=== PATIENT | female | born 1990 | race Caucasian/White ===

== ENCOUNTER 2017-06-28 08:33 | Emergency (ER) | payer MEDICAID, OTHER ==
[~2017-06-28] VITALS: Ht 162.6 cm; Wt 95.3 kg
[2017-06-28 09:31] LABS: BILIRUBIN,URINE 1+ (NEGATIVE); CLARITY,URINE CLEAR; COLOR,URINE YELLOW; GLUCOSE, URINE (UA) NEGATIVE (NEGATIVE); KETONES,URINE 4+ (NEGATIVE); LEUKOCYTE ESTERASE ,URINE 2+ (NEGATIVE); NITRITE,URINE NEGATIVE (NEGATIVE); PH,URINE 5 (5-9); PROTEIN,URINE 2+ (NEGATIVE); UROBILINOGEN,URINE NORMAL (NORMAL)
[2017-06-28 09:41] LABS: BACTERIA,URINE MODERATE /HPF
[2017-06-28 09:51] LABS: BASOPHILS % (AUTO) 0 % (0-10); EOSINOPHILS % (AUTO) 0 % (0-10); HEMATOCRIT 40 % (35-52); HEMOGLOBIN 13.7 G/DL (11.5-16.0); LYMPHOCYTES # (AUTO) 1.5 X 10^3 (1.0-4.0); LYMPHOCYTES % (AUTO) 15 % (12-44); MEAN CORPUSCULAR HEMOGLOBIN 30 PG (25-34); MEAN CORPUSCULAR HGB CONC 34 G/DL (32-36); MEAN CORPUSCULAR VOLUME 87 FL (80-99); MEAN PLATELET VOLUME 9.6 FL (7.4-10.4); MONOCYTES # (AUTO) 0.5 X 10^3 (0.0-1.0); MONOCYTES % (AUTO) 5 % (0-12); NEUTROPHILS # (AUTO) 7.8 X 10^3 (1.8-7.8); NEUTROPHILS % (AUTO) 80 % (42-75); PLATELET COUNT 287 10^3/uL (130-400); RED BLOOD COUNT 4.61 10^6/uL (4.35-5.85); RED CELL DISTRIBUTION WIDTH 13.2 % (10.0-14.5); WHITE BLOOD COUNT 9.8 10^3/uL (4.3-11.0)
--- NOTE | 2017-06-28 10:10 | ED GU-Female ---
General Chief Complaint: -Female Stated Complaint: LOWER ABD PAIN Nursing Triage Note: TO ROOM C/O LOW ABD PAIN ONSET THIS AM Nursing Sepsis Screen: No Definite Risk Source: patient Exam Limitations: no limitations History of Present Illness Date Seen by Provider: June 28, 2017 Time Seen by Provider: 10:06 Initial Comments The patient is a 27-year-old white female who presents with chief complaint of low abdominal pain. The patient reports that this began early this morning. She states that this is the worst pain that she ever had. It is both sided but worse on the right. There is no past history of kidney stones. She reports she had urinary tract infections when but not otherwise. Timing/Duration: this morning Severity/Quality: severe Location: suprapubic, right flank, left flank, generalized flank Activities at Onset: none Allergies and Home Medications Allergies Coded Allergies: No Known Drug Allergies (Unverified , 06/28/17) Home Medications No Active Prescriptions or Reported Meds Patient Home Medication List Home Medication List Reviewed: Yes Review of Systems Constitutional: see HPI EENTM: no symptoms reported Respiratory: no symptoms reported Cardiovascular: no symptoms reported Gastrointestinal: no symptoms reported Genitourinary: see HPI Musculoskeletal: no symptoms reported Skin: no symptoms reported Psychiatric/Neurological: No Symptoms Reported Endocrine: No Symptoms Reported Hematologic/Lymphatic: No Symptoms Reported Past Aqlqkgw-Krkilz-Hknouk Hx Patient Social History Alcohol Use: Denies Use Recreational Drug Use: No Smoking Status: Never a Smoker Recent Foreign Travel: No Contact w/Someone Who Travel: No Recent Infectious Disease Expo: No Past Medical History Surgeries: Yes Section Respiratory: No Cardiac: No Neurological: No Genitourinary: No Gastrointestinal: No Musculoskeletal: No Endocrine: No HEENT: No Cancer: No Integumentary: No Physical Exam Vital Signs Vital Signs - First Documented 06/28/17 09:00 Temp 96.7 Pulse 72 Resp 18 B/P (MAP) 143/95 (111) Pulse Ox 99 O2 Delivery Room Air Capillary Refill : Less Than 3 Seconds General Appearance: mild distress HEENT: normal ENT inspection Neck: full range of motion Cardiovascular: normal peripheral pulses, regular rate, rhythm, no edema, no gallop, no JVD, no murmur Respiratory: chest non-tender Gastrointestinal: normal bowel sounds, non tender, no organomegaly, other ( obese) Back: normal inspection, no CVA tenderness, no vertebral tenderness, CVA tenderness (R), CVA tenderness (L) Extremities: normal range of motion, non-tender, normal inspection, no pedal edema, no calf tenderness, normal capillary refill, pelvis stable Neurologic/Psychiatric: lobsterman II-XII nml as tested, no motor/sensory deficits, alert, normal mood/affect, oriented x 3 Skin: normal color, warm/dry, cyanosis, cool, diaphoresis, pallor Lymphatic: no adenopathy Comments Percussion over the right kidney produced rather prompt and impressive Progress/Results/Core Measures Suspected Sepsis Recent Fever Within 48 Hours: No Infection Criteria Present: None New/Unexplained Altered Menta: No Sepsis Screen: No Definite Risk SIRS Temperature:96.7 Pulse: 72 Respiratory Rate: 18 Laboratory Tests 06/28/17 09:45: White Blood Count 9.8 Blood Pressure 143 /95 Mean: 111 Laboratory Tests 06/28/17 09:45: Platelet Count 287 06/28/17 10:34: Creatinine 0.71, Total Bilirubin 0.9 Results/Orders Lab Results Laboratory Tests Test 06/28/17 09:25 06/28/17 09:45 06/28/17 10:34 Range/Units Urine Color YELLOW Urine Clarity CLEAR Urine pH 5 5-9 Urine Specific [place] 1.030 H 1.016-1.022 Urine Protein 2+ H NEGATIVE Urine Glucose (UA) NEGATIVE NEGATIVE Urine Ketones 4+ H NEGATIVE Urine Nitrite NEGATIVE NEGATIVE Urine Bilirubin 1+ H NEGATIVE Urine Urobilinogen NORMAL NORMAL MG/DL Urine Leukocyte Esterase 2+ H NEGATIVE Urine RBC (Auto) 5+ H NEGATIVE Urine RBC 5-10 H /HPF Urine WBC 2-5 /HPF Urine Squamous Epithelial Cells 10-25 H /HPF Urine Crystals NONE /LPF Urine Bacteria MODERATE H /HPF Urine Casts NONE /LPF Urine Mucus SMALL H /LPF Urine Culture Indicated NO White Blood Count 9.8 4.3-11.0 10^3/uL Red Blood Count 4.61 4.35-5.85 10^6/uL Hemoglobin 13.7 11.5-16.0 G/DL Hematocrit 40 35-52 % Mean Corpuscular Volume 87 80-99 FL Mean Corpuscular Hemoglobin 30 25-34 PG Mean Corpuscular Hemoglobin Concent 34 32-36 G/DL Red Cell Distribution Width 13.2 10.0-14.5 % Platelet Count 287 130-400 10^3/uL Mean Platelet Volume 9.6 7.4-10.4 FL Neutrophils (%) (Auto) 80 H 42-75 % Lymphocytes (%) (Auto) 15 12-44 % Monocytes (%) (Auto) 5 0-12 % Eosinophils (%) (Auto) 0 0-10 % Basophils (%) (Auto) 0 0-10 % Neutrophils # (Auto) 7.8 1.8-7.8 X 10^3 Lymphocytes # (Auto) 1.5 1.0-4.0 X 10^3 Monocytes # (Auto) 0.5 0.0-1.0 X 10^3 Eosinophils # (Auto) 0.0 0.0-0.3 10^3/uL Basophils # (Auto) 0.0 0.0-0.1 10^3/uL Sodium Level 138 135-145 MMOL/L Potassium Level 3.7 3.6-5.0 MMOL/L Chloride Level 107 98-107 MMOL/L Carbon Dioxide Level 19 L 21-32 MMOL/L Anion Gap 12 5-14 MMOL/L Blood Urea Nitrogen 12 7-18 MG/DL Creatinine 0.71 0.60-1.30 MG/DL Estimat Glomerular Filtration Rate > 60 BUN/Creatinine Ratio 17 Glucose Level 130 H 70-105 MG/DL Calcium Level 9.1 8.5-10.1 MG/DL Total Bilirubin 0.9 0.1-1.0 MG/DL Aspartate Amino Transf (AST/SGOT) 14 5-34 U/L Alanine Aminotransferase (ALT/SGPT) 11 0-55 U/L Alkaline Phosphatase 54 40-136 U/L Total Protein 7.1 6.4-8.2 GM/DL Albumin 4.0 3.2-4.5 GM/DL My Orders Orders - CAROLINA LIU MD Urine Bedside (06/28/17 09:15) Cbc With Automated Diff (06/28/17 09:15) Ua Culture If Indicated (06/28/17 09:15) Comprehensive Metabolic Panel (06/28/17 10:02) Ct Abd/Pelvis Wo(Kidney Stone) (06/28/17 10:02) Ketorolac Injection (Toradol Injection) (06/28/17 10:15) Ondansetron Injection (Zofran Injectio (06/28/17 10:15) Medications Given in ED Current Medications Medications Dose Ordered Sig/Josue Route Start Time Stop Time Status Last Admin Dose Admin Ketorolac Tromethamine 30 mg ONCE ONCE IVP 06/28/17 10:15 06/28/17 10:16 DC 06/28/17 10:25 30 MG Ondansetron HCl 8 mg ONCE ONCE IVP 06/28/17 10:15 06/28/17 10:16 DC 06/28/17 10:25 8 MG Vital Signs/I&O 06/28/17 09:00 Temp 96.7 Pulse 72 Resp 18 B/P (MAP) 143/95 (111) Pulse Ox 99 O2 Delivery Room Air Capillary Refill : Less Than 3 Seconds Blood Pressure Mean: 111 Point of Care Testing Urine -Bedside: Negative Departure Impression Primary Impression: right ureterolithiasis Disposition: HOME, SELF-CARE Condition: Stable/Unchanged Departure-Patient Inst. Decision time for Depature: 11:28 Add. Discharge Instructions: All discharge instructions reviewed with patient and/or family. Voiced understanding. Strain all urine. Medication as prescribed. Call your provider in a.m. if stone has not passed. He can arrange for you to see a urologist. Scripts Hydrocodone Bit/Acetaminophen (LORTAB 7.5 MG TABLET) 1 Ea Tablet 1 EA PO 4 times a day, #14 TAB Prov: CAROLINA LIU MD 06/28/17 CAROLINA LIU MD June 28, 2017 10:10
[2017-06-28] MEDS ORDERED: KETOROLAC 30 MG/ML VIAL IVP ONE (10:15)
[2017-06-28] MEDS ORDERED: ONDANSETRON 4 MG/2 ML (SDV) Z0FRAN IVP ONE (10:15)
[2017-06-28 10:58] LABS: ALANINE AMINOTRANSFERASE 11 U/L (0-55); ALKALINE PHOSPHATASE 54 U/L (40-136); BILIRUBIN,TOTAL 0.9 MG/DL (0.1-1.0); BUN/CREATININE RATIO 17; CALCIUM 9.1 MG/DL (8.5-10.1); CARBON DIOXIDE 19 MMOL/L (21-32); CHLORIDE 107 MMOL/L (98-107); CREATININE SERUM 0.71 MG/DL (0.60-1.30); GFR ESTIMATED > 60; GLUCOSE 130 MG/DL (70-105); POTASSIUM 3.7 MMOL/L (3.6-5.0); SODIUM 138 MMOL/L (135-145); TOTAL PROTEIN 7.1 GM/DL (6.4-8.2)
--- NOTE | 2017-06-28 10:59 | Diagnostic Imaging Report ---
Clinical indication: Patient with right lower quadrant pain radiating to posteriorly with nausea vomiting and diarrhea x6 hours. Exam: CT exam of the abdomen and pelvis is performed without IV or oral contrast using stone protocol. Coronal and sagittal reformatted images are created. Comparisons: None. Findings: Visualized lung bases: Unremarkable. Liver: Unremarkable as visualized. Gallbladder: Unremarkable. Pancreas: Unremarkable as visualized. Spleen: Unremarkable as visualized. Adrenal glands: Unremarkable. Kidneys/ ureters: There is a 2 mm calcification in the medial lower right pelvis region which is in the expected region of the distal right ureter. This may represent a stone in the distal right ureter versus an adjacent phlebolith. There is note of moderate right hydroureteronephrosis and mild fat stranding adjacent to the right ureter. Otherwise both kidneys are unremarkable. There are no other urinary tract stones seen. There is no perinephric fat stranding. Aorta: Unremarkable as visualized. Intraabdominal/ retroperitoneal contents: Unremarkable. Intestines: Unremarkable as visualized. Appendix: Unremarkable. Bladder: Unremarkable as visualized. Pelvic organs: There is a roughly 2.6 cm cystic structure in right adnexa region. Otherwise visualized portion of the uterus and adnexal areas is unremarkable. There is no significant free fluid in the pelvis. There is no intra-abdominal free air. Extra abdominal/ pelvis regions: Unremarkable. Abdominal wall: Small fat-containing umbilical hernia seen. Bones: Unremarkable. Impression: 1: There is a 2 mm calcification in the medial right low pelvis region which is in the expected region of the distal right ureter. This may represent a stone in the distal right ureter. There is note of moderate right hydroureteronephrosis and mild periureteral fat stranding. 2: There is a roughly 2.6 cm cyst in right adnexa region. Pelvic ultrasound in 6 weeks is suggested to evaluate for evolution and further evaluate. Dictated by: Dictated on workstation # [id number]
[2017-06-28] MEDS ORDERED: HYDR-34 PO (11:30)
[2017-06-28 12:03] VITALS: BP 160/100
== END 2017-06-28 12:03 | disposition home or self-care (01) ==
LOC: EDUNIT# 08:33 → ER 08:36
DX: N20.1 Calculus of ureter (principal); Z87.59 Personal history of other complications of pregnancy, childbirth and the puerperium
CPT/HCPCS: 36415; 74176; 80053; 81000; 84703; 85025; 96374; 96375

== ENCOUNTER 2018-01-07 07:53 | Emergency (ER) | payer MEDICAID ==
[~2018-01-07] VITALS: Ht 162.6 cm; Wt 99.8 kg
[~2018-01-07 07:53] MED LIST: HYDR-34 PO
[2018-01-07 08:18] VITALS: BP 113/64
--- OUTSIDE RECORDS SUMMARY | 2018-01-07 14:36 | XMS REPORT | Referral Summary ---
Author Author [facility] Organization [facility] Address Unknown Phone Unavailable Care Team Providers Care Railroad Car Checker Name Role Phone No PCP, Pt States PCP Encounter [facility] [id number] Date(s): 07/19/15 - 07/19/15 [facility] [address] [place], [place] [address] Discharge Diagnosis: Previous delivery, antepartum Discharge Diagnosis: Family history of congenital cardiac septal defect Discharge Disposition: 01-Home or Self Care Attending Physician: Emerson Haynes MD Admitting Physician: Emerson Haynes MD Vital Signs Most recent to 1 oldest [Reference Range]: Blood Pressure 130/58 mmHg [90-140/60-90 mmHg] (07/19/15 4:15 PM) Problem List Condition Effective Dates Status Health Status Informant (Confirmed) < 2014 Resolved (Confirmed) 05/05/12 - 2013 Resolved (Confirmed) 05/05/08 - 2009 Resolved (Confirmed) 01/21/15 Active Allergies, Adverse Reactions, Alerts No Known Medication Allergies Medications Multivitamins Oral, Daily, 0 Refill(s) Start Date: 07/19/15 Status: Ordered Results No data available for this section Immunizations No data available for this section Procedures No data available for this section Social History Social History Type Response Smoking Status Never smoker Assessment and Plan No data available for this section
--- OUTSIDE RECORDS SUMMARY | 2018-01-07 14:36 | XMS REPORT | CCD ---
Author Author ELY VILLEDA Unknown Address [address] [place] [address] Care Team Providers Care Radiation Control Health Physicist Name Role Phone WESLEY MUÑIZ, ERIKA Carroll Attphys Allergies Allergy Code Allergy Type Reaction Status No Known Allergies 0 Drug allergy Active Active Medications Medication Code Dose Units Frequency Route Modification Start Date/Time Ibuprofen 800MG Oral Tablet 816601 800 MILLIGRAMS EVERY 8 HOURS BY MOUTH 10/24/2015 08:41 Prescription Detail 800 MILLIGRAMS BY MOUTH EVERY 8 HOURS oxyCODONE HCl-acetaminophen 5MG-325MG Oral Tablet [id number] 1 TABLET NEEDED EVERY 6 HR BY MOUTH 2015 08:41 Prescription Detail 1 TABLET BY MOUTH NEEDED EVERY 6 HR PrePlus 27MG-1MG Oral Tablet [id number] 1 EACH DAILY BY MOUTH 10/24/2015 08:41 Prescription Detail 1 EACH BY MOUTH DAILY Docusate Sodium 100MG Oral Capsule [id number] 100 MILLIGRAMS DAILY BY MOUTH 10/24/2015 08:40 Prescription Detail 100 MILLIGRAMS BY MOUTH DAILY while taking percocet Ferrous Sulfate 325MG Oral Tablet [id number] 325 MILLIGRAMS BEFORE TWO MEALS BY MOUTH 10/24/2015 08:40 Prescription Detail 325 MILLIGRAMS BY MOUTH BEFORE TWO MEALS Problems Problem Code Start Date Resolved Date Status Deliveries by [id number] 10/22/2015 Active Procedures Procedure Code Procedure Type Date ELBOW; 3VWS [id number] SNOMED CT 09/06/2016 Results Unknown or Not Available. Encounters Encounter Diagnosis Diagnosis Code Start Date Pain in left arm [id number] 09/06/2016 Function Status Unknown or Not Available. History of Immunizations Immunization Code Date DTP 1990 DTP 1990 OPV 02 1990 OPV 1990 influenza, split (incl. purified surface antigen) 15 01/01/2010 Hep B, adolescent/high risk 42 1990 Hep B, adolescent/high risk infant 42 1990 Hep B, adult 43 04/21/2016 Hib (PRP-OMP) 49 1990 Hib (PRP-OMP) 49 1990 Hep A, adult 52 07/10/1995 HPV, quadrivalent 62 08/28/2010 HPV, quadrivalent 62 10/09/2010 Tdap 115 09/04/2015 Tdap 115 01/07/2016 Novel [id number] 127 01/02/2009 Plan of Treatment Unknown or Not Available. Social History Smoking Status Code Start Date End Date Never smoker [id number] Vital Signs Unknown or Not Available. Function Status Unknown or Not Available. Goals Unknown or Not Available. ASSESSMENTS Unknown or Not Available. Health Concerns Section Unknown or Not Available.
--- OUTSIDE RECORDS SUMMARY | 2018-01-07 14:36 | XMS REPORT ---
Author Author Ana Melara [facility] Address [address] [place], [place] [id number] Care Team Providers Care Graduate Student Instructor Name Role Phone Ana Melara PCP Unavailable Allergies and Adverse Reactions Name Reaction Notes NO KNOWN DRUG ALLERGIES Plan of Treatment Planned Activity Comments Planned Date Planned Time Plan/Goal CULTURE SCREEN ONLY 10/02/2015 12:00 AM Medications Name Start Date Expiration Date SIG Comments NataFort 60 mg iron-1 mg oral tablet 05/24/2009 04/19/2010 take 1 tablet by oral route once daily for 30 days Diflucan 150 mg oral tablet 11/01/2009 11/02/2009 take 1 tablet (150 mg) by oral route once for 1 days Premarin 1.25 mg oral tablet 07/30/2010 08/09/2010 take 1 tablet by oral route daily for 10 days doxycycline hyclate 100 mg oral tablet 08/23/2010 09/02/2010 take 1 tablet ( 100 mg) by oral route every 12 hours for 10 days ibuprofen 800 mg oral tablet 02/17/2011 03/19/2011 take 1 tablet by oral route 3 times a day for 30 days Bactrim DS 800-160 mg oral tablet 03/03/2011 2011 take 1 tablet by oral route every 12 hours for 7 days Macrobid 100 mg oral capsule 03/01/2015 03/08/2015 take 1 capsule (100 mg) by oral route 2 times per day with food for 7 days Discontinued Name Start Date Discontinued Date SIG Comments atenolol 25 mg oral tablet 07/30/2010 take 1/2 tablet by oral route QD Medrol (Antoine) 4 mg oral tablets,dose pack 03/03/2011 05/05/2011 take as directed Problem List Description Status Onset Care, High Risk Active 05/29/2009 Vital Signs Date Time BP-Sys(mm[Hg] BP-Carrie(mm[Hg]) HR(bpm) RR(rpm) Temp WT HT HC BMI BSA BMI Percentile O2 Sat(%) 02/21/2015 11:15:00 AM 130 mmHg 70 mmHg 80 bpm 20 rpm 214 lbs 64 in 36.73 kg/m2 2.09 m2 05/05/2011 10:30:00 AM 126 mmHg 62 mmHg 106 bpm 18 rpm 96.8 F 205 lbs 64 in 35.1878 kg/m 2.0491 m 97 % 03/03/2011 1:22:00 PM 120 mmHg 68 mmHg 66 bpm 18 rpm 97 F 202.375 lbs 64 in 34.74 kg/m2 2.04 m2 02/17/2011 1:44:00 PM 122 mmHg 64 mmHg 68 bpm 18 rpm 98.2 F 198.125 lbs 64 in 34.0077 kg/m 2.0145 m 02/11/2011 9:40:00 AM 103 mmHg 77 mmHg 64 bpm 18 rpm 97.7 F 197.125 lbs 64 in 33.84 kg/m2 2.01 m2 10/09/2010 9:06:00 AM 118 mmHg 68 mmHg 74 bpm 97.4 F 189 lbs 08/23/2010 10:06:00 AM 126 mmHg 70 mmHg 73 bpm 20 rpm 97.9 F 180.5 lbs 64 in 30.98 kg/m2 1.92 m2 0 % 99 % 07/30/2010 8:56:00 AM 96 mmHg 68 mmHg 66 bpm 20 rpm 97.5 F 177.5 lbs 64 in 30.4675 kg/m 1.9067 m 0 % 98 % 01/23/2010 10:43:00 AM 104 mmHg 64 mmHg 48 bpm 97.8 F 150 lbs 01/14/2010 9:15:00 AM 112 mmHg 72 mmHg 49 bpm 98 F 149 lbs 64 in 25.5755 kg/m 1.747 m 81.5 % 06/21/2009 8:54:00 AM 117 mmHg 65 mmHg 73 bpm 20 rpm 97.8 F 160.5 lbs 05/31/2009 9:42:00 AM 134 mmHg 66 mmHg 66 bpm 161 lbs 05/24/2009 4:02:00 PM 135 mmHg 71 mmHg 77 bpm 162 lbs 64 in 27.81 kg/m2 1.82 m2 89.9 % Social History Name Description Comments History of tobacco usage Quit smoking in February - was smoking 1-2cig/day denies alcohol use Tobacco Former smoker History of Procedures Date Ordered Description Order Status 10/09/2010 12:00 AM URINE TEST Reviewed 10/09/2010 12:00 AM IMMUNIZATION ADMIN Reviewed 10/09/2010 12:00 AM HPV VACCINE 4 VALENT IM Reviewed 02/22/2015 12:00 AM CYTOPATH C/V THIN LAYER Returned 02/22/2015 12:00 AM SPECIMEN HANDLING OFFICE-LAB Reviewed 02/22/2015 12:00 AM N.GONORRHOEAE DNA AMP PROB Returned 02/22/2015 12:00 AM CHLAMYDIA CULTURE Returned 02/22/2015 12:00 AM HIV-1ANTIBODY Returned 02/22/2015 12:00 AM URINALYSIS AUTO W/SCOPE Returned 02/22/2015 12:00 AM OBSTETRIC PANEL Returned 02/22/2015 12:00 AM GLUCOSE TOLERANCE TEST (GTT) Returned 05/07/2015 12:00 AM ALPHA-FETOPROTEIN SERUM Returned 05/07/2015 12:00 AM CHORIONIC GONADOTROPIN TEST Returned 05/07/2015 12:00 AM CHORIONIC GONADOTROPIN ASSAY Returned 06/12/2015 12:00 AM OB US >/=14 WKS SNGL FETUS Returned 08/07/2015 12:00 AM RH IG FULL-DOSE IM Returned 08/07/2015 12:00 AM Type and screen Returned 08/07/2015 12:00 AM GLUCOSE TOLERANCE TEST (GTT) Returned 08/07/2015 12:00 AM COMPLETE CBC W/AUTO DIFF WBC Returned 03/03/2011 12:00 AM X-RAY EXAM KNEE 4 OR MORE Returned 09/04/2015 12:00 AM TDAP VACCINE 7 YRS/> IM Reviewed 09/04/2015 12:00 AM IMMUNIZATION ADMIN Reviewed 05/24/2009 12:00 AM OBSTETRIC PANEL Reviewed 05/24/2009 12:00 AM HIV-1ANTIBODY Reviewed 05/24/2009 12:00 AM URINALYSIS NONAUTO W/SCOPE Reviewed 05/24/2009 12:00 AM OB US < 14 WKS SINGLE FETUS Reviewed 10/08/2009 12:00 AM GLUCOSE TEST Reviewed 10/08/2009 12:00 AM Rhogam Reviewed 10/08/2009 12:00 AM Type and screen Reviewed 10/08/2009 12:00 AM COMPLETE CBC W/AUTO DIFF WBC Reviewed 10/22/2009 12:00 AM COMPLETE CBC W/AUTO DIFF WBC Reviewed 11/22/2009 12:00 AM CULTURE OTHR SPECIMN AEROBIC Reviewed 01/23/2010 12:00 AM INSERTION IMPLANON, IMPLANTABLE CONTRACEPTIVE CAPSULES Reviewed 01/23/2010 12:00 AM Etonogestrel (contraceptive) implant system, (Implanon) Reviewed 08/23/2010 12:00 AM CYTOPATH TBS C/V MANUAL Reviewed 08/23/2010 12:00 AM CHLAMYDIA CULTURE Reviewed 08/23/2010 12:00 AM N.GONORRHOEAE DNA AMP PROB Reviewed 08/23/2010 12:00 AM URINE TEST Reviewed 08/28/2010 12:00 AM IMMUNIZATION ADMIN Reviewed 08/28/2010 12:00 AM HPV VACCINE 4 VALENT IM Reviewed Results Summary Data and Description Results 05/31/2009 10:41 AM RUBELLA 34.0 IU/mLCOLOR YELLOW APPEARANCE HAZY SPEC GRAV 1.025 pH 7.0 PROTEIN TRACE GLUCOSE NEGATIVE KETONE 15 BILIRUBIN NEGATIVE BLOOD NEGATIVE NITRITE NEGATIVE LEUK SCREEN NEGATIVE CASTS/LPF NEGATIVE CRYSTALS TRACE AMORPH MUCOUS THRDS FEW BACTERIA NEGATIVE EPITH CELLS FEW SQUAMOUS TRICHOMONAS NEGATIVE YEAST NEGATIVE WBC 6.3 RBC 4.57 HGB 13.90 g/dLHCT 40.30 % MCV 88.0 fLMCH 30.40 pgMCHC 34.50 g/dLMPV 9.20 fLPLT 258 %NEUT 65.10 %%LYMP 28.30 %#NEUT 4.10 #LYMP 1.80 10/22/2009 3:48 PM WBC 12.9 RBC 4.02 HGB 12.60 g/dLHCT 37.40 %MCV 93.0 fLMCH 31.30 pgMCHC 33.70 g/dLRDW CV 14.10 %MPV 9.50 fLPLT 263 %NEUT 69.20 %%LYMP 22.30 %%MONO 7.60 %%EOS 0.70 %%BASO 0.20 %#NEUT 8.91 #LYMP 2.88 #MONO 0.98 #EOS 0.09 #BASO 0.03 11/30/2009 8:21 PM COLOR YELLOW APPEARANCE CLEAR SPEC GRAV 1.010 pH 6.5 PROTEIN NEGATIVE GLUCOSE NEGATIVE KETONE 15 BILIRUBIN NEGATIVE BLOOD NEGATIVE NITRITE NEGATIVE LEUK SCREEN SMALL CASTS/LPF NEGATIVE CRYSTALS NEGATIVE MUCOUS THRDS NEGATIVE BACTERIA 2++ EPITH CELLS 3+++ SQUAMOUS TRICHOMONAS NEGATIVE YEAST NEGATIVE 12/18/2009 11:58 PM COLOR YELLOW APPEARANCE CLEAR SPEC GRAV 1.015 pH 6.5 PROTEIN NEGATIVE GLUCOSE NEGATIVE KETONE NEGATIVE BILIRUBIN NEGATIVE BLOOD NEGATIVE NITRITE NEGATIVE LEUK SCREEN LARGE CASTS/LPF NEGATIVE CRYSTALS NEGATIVE MUCOUS THRDS NEGATIVE BACTERIA 2++ EPITH CELLS 2++ SQUAMOUS TRICHOMONAS NEGATIVE YEAST NEGATIVE 12/24/2009 5:30 PM LDH 163.0 IU/LURIC ACID 3.7 mg/dLGLUCOSE 66.0 mg/dLSODIUM 137.0 mmol/LPOTASSIUM 3.10 mmol/LCHLORIDE 105.0 mmol/LCO2 21.0 mmol/LBUN 3.0 mg/ dLCREATININE 0.50 mg/dLSGOT/AST 20.0 IU/LSGPT/ALT 18.0 IU/LALK PHOS 152.0 IU/ LTOTAL PROTEIN 6.20 g/dLALBUMIN 3.40 g/dLTOTAL BILI 0.60 mg/dLCALCIUM 9.10 mg/ dLeGFR >60 mL/min/1.73 m2WBC 16.9 RBC 4.18 HGB 13.30 g/dLHCT 39.70 %MCV 95.0 fLMCH 31.80 pgMCHC 33.50 g/dLRDW CV 14.0 %MPV 10.10 fLPLT 268 %NEUT 75.70 %% LYMP 17.50 %%MONO 6.20 %%EOS 0.40 %%BASO 0.20 %#NEUT 12.82 #LYMP 2.97 #MONO 1.05 #EOS 0.06 #BASO 0.03 12/24/2009 8:50 PM PROTEIN UR 14.0 mg/dL 02/21/2015 12:21 PM Pap Smear Collected 02/26/2015 2:00 PM WBC 9.8 RBC 4.60 HGB 13.60 g/dLHCT 41.40 %MCV 90.0 fLMCH 29.60 pgMCHC 32.90 g/dLRDW CV 13.80 %MPV 9.70 fLPLT 271 %NEUT 59.80 %%LYMP 33.0 %%MONO 6.40 %%EOS 0.60 %%BASO 0.20 %#NEUT 5.83 #LYMP 3.22 #MONO 0.62 #EOS 0.06 # BASO 0.02 HIV AG/AB COMBO 0.14 RPR Non Reactive Rubella Antibodies, IgG 2.88 Index 02/26/2015 2:08 PM COLOR YELLOW APPEARANCE CLEAR SPEC GRAV <=1.005 pH 6.0 PROTEIN NEGATIVE GLUCOSE NEGATIVE mg/dLKETONE NEGATIVE BILIRUBIN NEGATIVE BLOOD NEGATIVE NITRITE NEGATIVE LEUK SCREEN TRACE CASTS/LPF NEGATIVE /LPFCRYSTALS NEGATIVE MUCOUS THRDS NEGATIVE BACTERIA NEGATIVE EPITH CELLS 3+++ SQUAMOUS / HPFTRICHOMONAS NEGATIVE YEAST NEGATIVE 05/07/2015 2:18 PM AFP Value 0.0240 ug/mLAFP MoM 1.02 hCG Value 20873.0 mIU/ mLhCG MoM 1.77 uE3 Value 0.70 ng/mLuE3 MoM 1.16 CARRIE Value 207.520 pg/mLDIA MoM 1.25 OSBR [place] 1 [place] [address] DSR (Second Trimester) 1IN 4435 DSR (By Age) 1 IN 1003 T18 Risk Not increased T18 (By Age) 1:3907 08/07/2015 3:15 PM WBC 11.5 RBC 3.75 HGB 11.70 g/dLHCT 35.50 %MCV 95.0 fLMCH 31.20 pgMCHC 33.0 g/dLRDW CV 14.10 %MPV 9.70 fLPLT 273 %NEUT 73.0 %%LYMP 20.10 % %MONO 5.70 %%EOS 0.80 %%BASO 0.10 %#NEUT 8.40 #LYMP 2.31 #MONO 0.65 #EOS 0.09 # BASO 0.01 History Of Immunizations Name Date Admin Mfg Name Mfg Code Trade Name Lot# Route Inj Vis Given Vis Pub CVX HPV 08/28/2010 Merck [employer] Co., Inc. MSD GARDASIL [id number] Intramuscular Left Deltoid 08/28/2010 03/13/2006 999 HPV 10/09/2010 [employer] Co[employer] Inc[employer] MSD GARDASIL [id number] Intramuscular Left Deltoid 10/09/2010 06/12/2010 62 Tdap 09/04/2015 GlaxoSmLivemapine SKB BOOSTRIX [id number] Intramuscular Right Deltoid 09/04/2015 04/04/2014 115 History of Past Illness Name Date of Onset Comments Atrial Septal Defect, Ostium Secundum Type Care, High Risk 05/29/2009 May 24 2009 4:29PM Care, High Risk May 24 2009 4:13PM May 31 2009 9:54AM Care, High Risk May 31 2009 10:10AM Jun 21 2009 9:01AM Jul 19 2009 2:45PM Aug 16 2009 4:16PM , First Normal Oct 08 2009 9:14AM , High Risk Oct 22 2009 3:13PM Group B Strep Screening, Nov 22 2009 5:43PM , High Risk Nov 22 2009 5:43PM Postoperative Examination Following Surgery Jan 14 2010 9:15AM IMPLANON Insertion Jan 23 2010 10:44AM General Medical Exam, Child Jul 30 2010 8:58AM Contraceptive Management Jul 30 2010 8:58AM Routine gynecological examination Aug 23 2010 10:03AM Contraceptive Counseling Aug 23 2010 10:03AM Vaginal Discharge Aug 23 2010 10:03AM Irregular Menses Aug 23 2010 10:03AM Gardsil (HPV) Aug 28 2010 8:54AM Irregular Menses Oct 09 2010 9:07AM Family Planning Oct 09 2010 9:07AM Contraceptive Management Feb 11 2011 9:43AM Local Infection Feb 11 2011 9:43AM Well Child Examination Feb 17 2011 1:46PM Right knee pain Feb 17 2011 1:46PM Right knee pain Mar 03 2011 1:24PM Abscess Mar 03 2011 1:24PM Right knee pain May 05 2011 10:32AM General Medical Exam, Adult Feb 17 2011 1:46PM test confirmed positive Feb 21 2015 11:37AM Obesity Feb 21 2015 11:37AM Normal in multigravida in second trimester May 07 2015 2:01PM History of atrial septal defect repair Jun 20 2015 8:50AM Normal in multigravida in second trimester Aug 07 2015 2:00PM Need for Tdap vaccine Sep 04 2015 1:38PM Group B Strep Screening, Oct 02 2015 3:43PM Normal in multigravida in third trimester Oct 02 2015 3:43PM Payers Insurance Name Company Name Plan Name Plan Number Policy Number Policy Group Number Start Date [facility] - R[facility] - [facility]HC Comm [id number] N/A [place] [employer] [place] Program [place] Prog [id number] N/A zzzTest Medicare A Test Medicare A void N/A History of Encounters Visit Date Visit Type Provider 10/02/[address] Ana Melara MD 09/18/[address] Ana Melara MD 09/04/[address] Ana Melara MD 08/07/[address] Ana Melara MD 06/05/[address] Ana Melara MD 05/07/[address] Ana Melara MD 04/05/[address] Ana Melara MD 03/08/[address] Ana Melara MD 02/21/2015 Office visit Marni Dorado PHTHALIC ACID PURIFIER 05/05/2011 Office visit Dalia Walker PHTHALIC ACID PURIFIER 03/03/2011 Office visit Dalia Walker PHTHALIC ACID PURIFIER 02/17/2011 Office visit Dalia Walker PHTHALIC ACID PURIFIER 02/11/2011 Office visit Dalia Walker PHTHALIC ACID PURIFIER 10/09/2010 Nurse visit Dalia Walker PHTHALIC ACID PURIFIER 08/28/2010 Nurse visit Dalia Walker PHTHALIC ACID PURIFIER 08/23/2010 Office visit Dalia Walker PHTHALIC ACID PURIFIER 07/30/2010 Office visit Dalia Walker PHTHALIC ACID PURIFIER 01/23/2010 Office visit Marga Fung MD 01/14/2010 Surgery Marga Fung MD 12/25/2009 [facility] Marga Fung MD 12/24/2009 Office visit Marga Fung MD 12/24/2009 [facility] Marga Fung MD 12/20/2009 Office visit Marga Fung MD 12/13/2009 Office visit Marga Fung MD 12/06/2009 Office visit Marga Fung MD 11/29/2009 Office visit Marga Fung MD 11/22/2009 Office visit Marga Fung MD 11/17/2009 [facility] Marga Fung MD 11/15/2009 Office visit Marga Fung MD 11/01/2009 Office visit Marga Fung MD 10/22/2009 Office visit Marga Fung MD 10/08/2009 Office visit Marga Fung MD 09/17/2009 Office visit Marga Fung MD 08/16/2009 Office visit Marga Fung MD 07/19/2009 Office visit Marga Fung MD 06/21/2009 Office visit Marga Fung MD 05/31/2009 Office visit Marga Fung MD 05/24/2009 Office visit Marga Fung MD
--- OUTSIDE RECORDS SUMMARY | 2018-01-07 14:36 | XMS REPORT | CCD ---
Author Author COLT KEARNS Organization Unknown Address [address] [place] [address] Care Team Providers Care Senior Manufacturing Supervisor Name Role Phone LINDEN MAHONEY MD Attphys VANESSA Stubbs Allergies Allergy Code Allergy Type Reaction Status No Known Allergies 0 Drug allergy Active Active Medications Problems Problem Code Start Date Resolved Date Status Deliveries by [id number] 10/22/2015 Active Procedures Procedure Code Procedure Type Date Extraction of Products of Conception, Low Cervical, Open Approach [id number] ICD-10 PCS 10/22/2015 Excision of Bilateral Fallopian Tubes, Open Approach [id number] ICD- 10 PCS 10/22/2015 Repair Abdomen Skin, External Approach [id number] ICD-10 PCS 10/24/[address] 10/23/[id number] 10/23/[id number] 10/23/2015 PATHOLOGY ORDER [id number] SNOMED CT 10/22/2015 TYPE AND SCREEN 29687839 SNOMED CT 10/22/[address] 10/22/2015 INCENTIVE SPIROMETRY EA [address] 01/2016 Results HEMOGRAM - Collect Date/Time: 10/23/2015 06:00 Test Name Code Test Result Test Units Test Ref Range WBC 23020-3 14.0 TH/CMM L=4.5 H=10.8 RBC 789-8 3.41 ML/CMM L=4.20 H=5.40 HGB 718-7 10.1 G/DL L=12.0 H=16.0 HCT 4544-3 32.3 % L=37.0 H=47.0 MCV 57062-3 95 FL L=81 H=99 MCH 44573-5 29.6 PG L=27.0 H=33.0 MCHC 60716-5 31.3 G/DL L=31.0 H=36[place]0 [place] [address]-3 49 FL L=36 H=50 [place]DW [place] [address]-7 14.3 % L=0.0 H=14.8 MPV 00917-3 9.7 FL L=9.3 H=12.5 PLT 777-3 271 TH/CMM L=130 H=440 NRBC# 25738-6 0.00 TH/CMM L=0.00 H=0.00 NRBC% 08678-7 0.0 /100WBC L=0.0 H=2.0 HEMOGRAM - Collect Date/Time: 10/22/2015 10:45 Test Name Code Test Result Test Units Test Ref Range WBC 75546-8 10.7 TH/CMM L=4.5 H=10.8 RBC 789-8 3.83 ML/CMM L=4.20 H=5.40 HGB 718-7 11.4 G/DL L=12.0 H=16.0 HCT 4544-3 35.9 % L=37.0 H=47.0 MCV 14993-0 94 FL L=81 H=99 MCH 47448-4 29.8 PG L=27.0 H=33.0 MCHC 17727-1 31.8 G/DL L=31.0 H=36[place] [address]-4 48 FL L=36 H=50 [place] [address]-8 14.0 % L=0.0 H=14.8 MPV 30481-3 9.5 FL L=9.3 H=12.5 PLT 777-3 321 TH/CMM L=130 H=440 NRBC# 18277-5 0.00 TH/CMM L=0.00 H=0.00 NRBC% 64202-1 0.0 /100WBC L=0.0 H=2.0 SCREEN - Collect Date/Time: 10/23/2015 06:00 Test Name Code Test Result Test Units Test Ref Range Bleed Screen 49234-9 Negative N/A RHIG - Collect Date/Time: 10/23/2015 06:00 Test Name Code Test Result Test Units Test Ref Range Volume 77544-7 300 Quantity 79177-4 1 Lot Number [id number] Product Identification [id number] Rh Immune Globulin N/A TYPE AND SCREEN - Collect Date/Time: 10/22/2015 10:45 Test Name Code Test Result Test Units Test Ref Range ABO/Rh Type 895-3 A Negative N/A Antibody Screen-Gel 895-3 Negative N/A Function Status Unknown or Not Available. History of Immunizations Unknown or Not Available. Plan of Treatment Unknown or Not Available. Social History Smoking Status Code Start Date End Date Never smoker [id number] Vital Signs Vital Sign Value Unit Date/Time Recent/Initial? BP Systolic 105 mm[Hg] 10/22/2015 14:30 Initial VS BP Diastolic 52 mm[Hg] 10/22/2015 14:30 Initial VS Respiratory Rate 16 /min 10/22/2015 14:30 Initial VS Heart Rate 65 /min 10/22/2015 14:30 Initial VS O2 % BldC Oximetry 100 % 10/22/2015 14:30 Initial VS Body Temperature 97.3 [degF] 10/22/2015 14:30 Initial VS Weight Measured 178 [lb_av] 10/22/2015 16:31 Initial VS Height 64 [in_i] 10/22/2015 16:31 Initial VS BMI (Body Mass Index) 30.55 kg/m2 10/22/2015 16:31 Initial VS BSA (Body Surface Area) 1.91 m2 10/22/2015 16:31 Initial VS BP Systolic 124 mm[Hg] 10/24/2015 09:40 Most Recent VS BP Diastolic 70 mm[Hg] 10/24/2015 09:40 Most Recent VS Respiratory Rate 18 /min 10/24/2015 09:40 Most Recent VS Heart Rate 88 /min 10/24/2015 09:40 Most Recent VS O2 % BldC Oximetry 98 % 10/24/2015 09:40 Most Recent VS Body Temperature 98.1 [degF] 10/24/2015 09:40 Most Recent VS Function Status Unknown or Not Available. Goals Unknown or Not Available. ASSESSMENTS Unknown or Not Available. Health Concerns Section Unknown or Not Available.
--- OUTSIDE RECORDS SUMMARY | 2018-01-07 14:37 | XMS REPORT ---
Author Author Ana Melara [facility] Address [address] [place], [place] [id number] Care Team Providers Care Adjunct Art History Instructor Name Role Phone Ana Melara PCP Unavailable Allergies and Adverse Reactions Name Reaction Notes NO KNOWN DRUG ALLERGIES Plan of Treatment Not available. Medications Active Name Start Date Estimated Completion Date SIG Comments Macrobid 100 mg oral capsule 03/01/2015 03/08/2015 take 1 capsule (100 mg) by oral route 2 times per day with food for 7 days Name Start Date Expiration Date SIG Comments [...] route every 12 hours for 7 days Discontinued Name Start Date [...] 12:00 AM GLUCOSE TOLERANCE TEST (GTT) Returned 03/03/2011 12:00 AM X-RAY EXAM KNEE 4 OR MORE Returned 05/24/2009 12:00 AM OBSTETRIC PANEL Reviewed 05/24/2009 [...] 3+++ SQUAMOUS / HPFTRICHOMONAS NEGATIVE YEAST NEGATIVE History Of Immunizations Name Date Admin Mfg Name Mfg Code Trade Name Lot# Route Inj Vis Given Vis Pub CVX HPV 08/28/2010 [employer]ck [employer] Co., [employer]. MSD GARDASIL [id number] Intramuscular Left Deltoid 08/28/2010 03/13/2006 999 HPV 10/09/2010 [employer]ck [employer] Co., Inc[employer] MSD GARDASIL [id number] Intramuscular Left Deltoid 10/09/2010 06/12/2010 62 History of Past Illness Name Date of [...] 2015 11:37AM Obesity Feb 21 2015 11:37AM Payers Insurance Name Company Name Plan Name Plan Number Policy Number Policy Group Number Start Date [place] [employer] Program [place] [employer] [place] Prog [id number] N/A [facility] void N/A History of Encounters Visit Date Visit Type Provider 03/08/[address] Ana Melara MD 02/21/2015 Office visit Marni Dorado GLOBAL SAFETY OFFICER 05/05/2011 Office visit Dalia Mariano GLOBAL SAFETY OFFICER 03/03/2011 Office visit Dalia Mariano GLOBAL SAFETY OFFICER 02/17/2011 Office visit Dalia Mariano GLOBAL SAFETY OFFICER 02/11/2011 Office visit Dalia Mariano GLOBAL SAFETY OFFICER 10/09/2010 Nurse visit Dalia Mariano GLOBAL SAFETY OFFICER 08/28/2010 Nurse visit Dalia Mariano GLOBAL SAFETY OFFICER 08/23/2010 Office visit Dalia Mariano GLOBAL SAFETY OFFICER 07/30/2010 Office visit Dalia Mariano GLOBAL SAFETY OFFICER 01/23/2010 Office visit Marga Fung MD 01/14/2010 Surgery Marga Fung MD 12/25/2009 Hospital Marga Fung MD 12/24/2009 Office visit Marga Fung MD 12/24/2009 [facility] Marga Fung MD 12/20/2009 Office visit Marga Fung MD 12/13/2009 Office visit Marga Fung MD 12/06/2009 Office visit Marga Fung MD 11/29/2009 Office visit Marga Fung MD 11/22/2009 Office visit Marga Fnug MD 11/17/2009 [facility] Marga Fung MD 11/15/2009 Office visit [...]
--- OUTSIDE RECORDS SUMMARY | 2018-01-07 14:37 | XMS REPORT ---
Author Author Ana Melara [facility] Address [address] [place], [place] [address] Care Team Providers Care Drug Regulatory Affairs Specialist Name Role Phone Ana Melara PCP Unavailable Allergies and Adverse Reactions Name Reaction Notes NO KNOWN DRUG ALLERGIES Plan of Treatment Not available. Medications Name Start Date Expiration Date SIG [...] Reviewed 09/04/2015 12:00 AM IMMUNIZATION ADMIN Reviewed 10/02/2015 12:00 AM CULTURE SCREEN ONLY Returned 05/24/2009 12:00 AM OBSTETRIC PANEL Reviewed [...] Value 0.0240 ug/mLAFP MoM 1.02 hCG Value 70165.0 mIU/ mLhCG MoM 1.77 uE3 Value 0.70 ng/mLuE3 MoM 1.16 CARRIE Value 207.520 pg/mLDIA MoM 1.25 OSBR [place] 1 [place] [address] DSR (Second Trimester) 1IN 4435 DSR (By [...] 10/09/2010 [employer]ck [employer] Co., Inc[employer] MSD GARDASIL [id number] Intramuscular Left Deltoid 10/09/2010 06/12/2010 62 Tdap 09/04/2015 GlaxoSmDogiKline SKB BOOSTRIX [id number] Intramuscular Right Deltoid 09/04/2015 [...] Policy Number Policy Group Number Start Date [facility] [id number] N/A [place] [employer] Program [place] [employer] Prog [id number] N/A zzzTest Medicare A Test Medicare A void N/A History of Encounters Visit Date Visit Type Provider 10/09/[address] Ana Melara MD 10/02/[address] Ana Melara MD 09/18/[address] Ana Melara MD 09/04/[address] Ana Melara MD 08/07/[address] Ana Melara MD 06/05/[address] Ana Melara MD 05/07/[address] Ana Melara MD 04/05/[address] Ana Melara MD 03/08/[address] Ana Melara MD 02/21/2015 Office visit Marni GermainMillicent Dorado FAMILY LAWYER 05/05/2011 Office visit Dalia Walker FAMILY LAWYER 03/03/2011 Office visit Dalia Walker FAMILY LAWYER 02/17/2011 Office visit Dalia Walker FAMILY LAWYER 02/11/2011 Office visit Dalia Walker FAMILY LAWYER 10/09/2010 Nurse visit Dalia Walker FAMILY LAWYER 08/28/2010 Nurse visit Dalia Walker FAMILY LAWYER 08/23/2010 Office visit Dalia Walker FAMILY LAWYER 07/30/2010 Office visit Dalia García FAMILY LAWYER 01/23/2010 Office visit Marga Fung MD 01/14/2010 Surgery Marga Fung MD 12/25/2009 [facility] Marga Fung MD 12/24/2009 Office visit Marga Fung MD 12/24/2009 [facility] Marga Fung MD 12/20/2009 Office visit Marga Fung MD 12/13/2009 Office visit Marga Fung MD 12/06/2009 Office visit Marga Fung MD 11/29/2009 Office visit Marga Fung MD 11/22/2009 Office visit Marga Fung MD 11/17/2009 [facility] Marga Fung MD 11/15/2009 Office visit Marga [...]
--- OUTSIDE RECORDS SUMMARY | 2018-01-07 14:38 | XMS REPORT ---
Author Author Ana Melara [facility] Address [address] [place], [place] [id number] Care Team Providers Care Chain Hooker Name Role Phone Ana Melara PCP Unavailable [...] Value 0.0240 ug/mLAFP MoM 1.02 hCG Value 41408.0 mIU/ mLhCG MoM 1.77 uE3 Value 0.70 ng/mLuE3 MoM 1.16 CARRIE Value 207.520 pg/mLDIA MoM 1.25 OSBR [place] 1 [place] [address] DSR (Second Trimester) 1IN 4435 DSR (By [...] 10/09/2010 Merck & Co., Inc. MSD GARDASIL [id number] Intramuscular Left Deltoid 10/09/2010 06/12/2010 62 Tdap 09/04/2015 [employer]ax[employer] SKB BOOSTRIX [id number] Intramuscular Right Deltoid 09/04/2015 [...] for Tdap vaccine Sep 04 2015 1:38PM Payers Insurance Name Company Name Plan Name Plan Number Policy Number Policy Group Number Start Date [facility] - [facility] - [facility] of [facility] Comm [id number] N/A [place] [facility] Program [place] Medical Assistance Prog [id number] N/A zzzTest Medicare A Test Medicare A void N/A History of Encounters Visit Date Visit Type Provider 09/18/[address] Ana Melara MD 09/04/[address] Ana Melara MD 08/07/[address] Ana Melara MD 06/05/[address] Ana Melara MD 05/07/[address] Ana Melara MD 04/05/[address] Ana Melara MD 03/08/[address] Ana Melara MD 02/21/2015 Office visit Marni MarcellusMillicent Dorado ELECTRICIAN HELPER 05/05/2011 Office visit Dalia Mariano ELECTRICIAN HELPER 03/03/2011 Office visit Dalia Mariano ELECTRICIAN HELPER 02/17/2011 Office visit Dalia Mariano ELECTRICIAN HELPER 02/11/2011 Office visit Dalia Mariano ELECTRICIAN HELPER 10/09/2010 Nurse visit Dalia Mariano ELECTRICIAN HELPER 08/28/2010 Nurse visit Dalia Mariano ELECTRICIAN HELPER 08/23/2010 Office visit Dalia Mariano ELECTRICIAN HELPER 07/30/2010 Office visit Dalia Mariano ELECTRICIAN HELPER 01/23/2010 Office visit Marga Fung MD 01/14/2010 Surgery Marga Fung MD 12/25/2009 Hospital Marga Fung MD 12/24/2009 Office visit Marga Fung MD 12/24/2009 [facility] Marga Fung MD 12/20/2009 Office visit Marga Fung MD 12/13/2009 Office visit Marga Fung MD 12/06/2009 Office visit Marga Fung MD 11/29/2009 Office visit Marga Fung MD 11/22/2009 Office visit Marga Fung MD 11/17/2009 [facility] Marga Fung MD 11/15/2009 Office [...]
--- OUTSIDE RECORDS SUMMARY | 2018-01-07 14:38 | XMS REPORT ---
Author Author Ana Melara [facility] Address [address] [place], [place] [address] Care Team Providers Care Buffet Waiter/Waitress Name Role Phone Ana Melara PCP Unavailable Allergies and Adverse Reactions Name Reaction Notes NO KNOWN DRUG ALLERGIES Plan of Treatment Planned Activity Comments Planned Date Planned Time Plan/Goal OB US >/=14 WKS SNGL FETUS 06/12/2015 12:00 AM Medications Name Start Date Expiration [...] 05/07/2015 12:00 AM CHORIONIC GONADOTROPIN ASSAY Returned 03/03/2011 12:00 AM X-RAY EXAM KNEE [...] Value 0.0240 ug/mLAFP MoM 1.02 hCG Value 92622.0 mIU/ mLhCG MoM 1.77 uE3 Value 0.70 ng/mLuE3 MoM 1.16 CARRIE Value 207.520 pg/mLDIA MoM 1.25 OSBR [place] 1 [place] [address] DSR (Second Trimester) 1IN 4435 DSR (By Age) 1 IN 1003 T18 Risk Not increased T18 (By Age) 1:3907 History Of Immunizations Name Date Admin Mfg Name Mfg Code Trade Name Lot# Route Inj Vis Given Vis Pub CVX HPV 08/28/2010 Merck & Co., Inc. MSD GARDASIL [id number] Intramuscular Left Deltoid 08/28/2010 03/13/2006 999 HPV 10/09/2010 [employer]ck [employer] Co., Inc. MSD GARDASIL [id number] Intramuscular Left Deltoid 10/09/2010 06/12/2010 62 History [...] in second trimester May 07 2015 2:01PM Payers Insurance Name Company Name Plan Name Plan Number Policy Number Policy Group Number Start Date [facility] - [facility] - [facility] Comm [id number] N/A [place] Medical Assistance Program [place] Prog [id number] N/A zzzTest Medicare A Test Medicare A void N/A History of Encounters Visit Date Visit Type Provider 06/05/[address] Ana Melara MD 05/07/[address] Ana Melara MD 04/05/[address] Ana Melara MD 03/08/[address] Ana Melara MD 02/21/2015 Office visit Marni Dorado FRONT END UI DEVELOPER 05/05/2011 Office visit Dalia Mariano FRONT END UI DEVELOPER 03/03/2011 Office visit Dalia Mariano FRONT END UI DEVELOPER 02/17/2011 Office visit Dalia Mariano FRONT END UI DEVELOPER 02/11/2011 Office visit Dalia Marinao FRONT END UI DEVELOPER 10/09/2010 Nurse visit Dalia Mariano FRONT END UI DEVELOPER 08/28/2010 Nurse visit Dalia Mariano FRONT END UI DEVELOPER 08/23/2010 Office visit Dalia Mariano FRONT END UI DEVELOPER 07/30/2010 Office visit Dalia Mariano FRONT END UI DEVELOPER 01/23/2010 Office visit Marga Fung MD 01/14/2010 Surgery Marga Fung MD 12/25/2009 [facility] Marga Fung MD 12/24/2009 Office visit Marga Fung MD 12/24/2009 [facility] Marga Fung MD 12/20/2009 Office visit Marga Fung MD 12/13/2009 Office visit Marga Fung MD 12/06/2009 Office visit Marga Fung MD 11/29/2009 Office visit Marga Fung MD 11/22/2009 Office visit Marga Fung MD 11/17/2009 [facility] Marga Fung MD 11/15/2009 Office visit Marga [...]
--- OUTSIDE RECORDS SUMMARY | 2018-01-07 14:39 | XMS REPORT ---
Author Author Marni Dorado [facility] Address [address] [place], [place] [address] Care Team Providers Care Hris Specialist Name Role Phone Marni Dorado PCP Unavailable Allergies and Adverse Reactions Name Reaction Notes NO KNOWN DRUG ALLERGIES Plan of Treatment Planned Activity Comments Planned Date Planned Time Plan/Goal CYTOPATH C/V THIN LAYER 02/22/2015 12:00 AM N.GONORRHOEAE DNA AMP PROB 02/22/2015 12:00 AM CHLAMYDIA CULTURE 02/22/2015 12:00 AM HIV-1ANTIBODY 02/22/2015 12:00 AM URINALYSIS AUTO W/SCOPE 02/22/2015 12:00 AM OBSTETRIC PANEL 02/22/2015 12:00 AM GLUCOSE TOLERANCE TEST (GTT) 02/22/2015 12:00 AM Medications Name Start Date Expiration [...] was smoking 1-2cig/day denies alcohol use Tobacco Current every day smoker History of Procedures Date Ordered Description Order Status 10/09/2010 12:00 AM URINE TEST Reviewed 10/09/2010 12:00 AM IMMUNIZATION ADMIN Reviewed 10/09/2010 12:00 AM HPV VACCINE 4 VALENT IM Reviewed 03/03/2011 12:00 AM X-RAY EXAM KNEE 4 [...] mg/dL 02/21/2015 12:21 PM Pap Smear Collected History Of Immunizations Name Date Admin Mfg Name Mfg Code Trade Name Lot# Route Inj Vis Given Vis Pub CVX HPV 08/28/2010 Merck & Co., Inc. MSD GARDASIL [id number] Intramuscular Left Deltoid 08/28/2010 03/13/2006 999 HPV 10/09/2010 [employer]ck [employer] Co., Inc. MSD GARDASIL [id number] Intramuscular Left Deltoid 10/09/2010 06/12/2010 62 History [...] Policy Number Policy Group Number Start Date [place] Medical Assistance [facility] Prog [id number] N/A [place] N/A History of Encounters Visit Date Visit Type Provider 02/21/2015 Office visit Marni Dorado DIRECT CUSTOMER SERVICE REPRESENTATIVE 05/05/2011 Office visit Dalia Mariano DIRECT CUSTOMER SERVICE REPRESENTATIVE 03/03/2011 Office visit Dalia Mariano DIRECT CUSTOMER SERVICE REPRESENTATIVE 02/17/2011 Office visit Dalia Mariano DIRECT CUSTOMER SERVICE REPRESENTATIVE 02/11/2011 Office visit Dalia Mariano DIRECT CUSTOMER SERVICE REPRESENTATIVE 10/09/2010 Nurse visit Dalia Mariano DIRECT CUSTOMER SERVICE REPRESENTATIVE 08/28/2010 Nurse visit Dalia Mariano DIRECT CUSTOMER SERVICE REPRESENTATIVE 08/23/2010 Office visit Dalia Mariano DIRECT CUSTOMER SERVICE REPRESENTATIVE 07/30/2010 Office visit Dalia Mariano DIRECT CUSTOMER SERVICE REPRESENTATIVE 01/23/2010 Office visit Marga Fung MD 01/14/2010 Surgery Marga Fung MD 12/25/2009 [facility] Marga Fung MD 12/24/2009 Office visit Marga Fung MD 12/24/2009 [facility] Marga Fung MD 12/20/2009 Office visit Marga Fung MD 12/13/2009 Office visit Marga Fung MD 12/06/2009 Office visit Marga Fung MD 11/29/2009 Office visit Marga Fung MD 11/22/2009 Office visit Marga Fung MD 11/17/2009 [facility] Marga Fung MD 11/15/2009 Office visit [...]
--- OUTSIDE RECORDS SUMMARY | 2018-01-07 14:40 | XMS REPORT ---
Author Author Ana Melara [facility] Address [address] [place], [place] [address] Care Team Providers Care Spring Salvage Worker Name Role Phone Ana Melara PCP Unavailable Allergies and Adverse Reactions Name Reaction Notes NO KNOWN DRUG ALLERGIES Plan of Treatment Planned Activity Comments Planned Date Planned Time Plan/Goal ALPHA-FETOPROTEIN SERUM 05/07/2015 12:00 AM CHORIONIC GONADOTROPIN TEST 05/07/2015 12:00 AM CHORIONIC GONADOTROPIN ASSAY 05/07/2015 12:00 AM OB US >/=14 WKS SNGL FETUS 06/12/2015 [...] NEGATIVE History Of Immunizations Name Date Admin [facility] Name [facility] Code Trade Name Lot# Route Inj Vis Given Vis Pub CVX HPV 08/28/2010 Merck [employer] Co., Inc. MSD GARDASIL [id number] Intramuscular Left Deltoid 08/28/2010 03/13/2006 999 HPV 10/09/2010 [employer] Co., Inc. MSD GARDASIL [id number] Intramuscular Left Deltoid 10/09/2010 06/12/2010 62 History [...] Policy Number Policy Group Number Start Date [facility] - [facility] - [facility] Comm [id number] N/A [place] Medical Assistance Program [place] Medical Assistance Prog [id number] N/A zzzTest Medicare A Test Medicare A void N/A History of Encounters Visit Date Visit Type Provider 05/07/[address] Ana Melara MD 04/05/[address] Ana Melara MD 03/08/[address] Ana Melara MD 02/21/2015 Office visit Marni Dorado MANUFACTURER'S SERVICE REPRESENTATIVE 05/05/2011 Office visit Dalia Mariano MANUFACTURER'S SERVICE REPRESENTATIVE 03/03/2011 Office visit Dalia Mariano MANUFACTURER'S SERVICE REPRESENTATIVE 02/17/2011 Office visit Dalia Mariano MANUFACTURER'S SERVICE REPRESENTATIVE 02/11/2011 Office visit Dalia Mariano MANUFACTURER'S SERVICE REPRESENTATIVE 10/09/2010 Nurse visit Dalia Mariano MANUFACTURER'S SERVICE REPRESENTATIVE 08/28/2010 Nurse visit Dalia Mariano MANUFACTURER'S SERVICE REPRESENTATIVE 08/23/2010 Office visit Dalia Mariano MANUFACTURER'S SERVICE REPRESENTATIVE 07/30/2010 Office visit Dalia Mariano MANUFACTURER'S SERVICE REPRESENTATIVE 01/23/2010 Office visit Marga Fung MD 01/14/2010 Surgery Marga Fung MD 12/25/2009 [facility] Marga Fung MD 12/24/2009 Office visit Marga Fung MD 12/24/2009 [facility] Marga Fung MD 12/20/2009 Office visit Marga Fung MD 12/13/2009 Office visit Marga Fung MD 12/06/2009 Office visit Marga Fung MD 11/29/2009 Office visit Marga Fung MD 11/22/2009 Office visit Marga Fung MD 11/17/2009 [facility] Marga Fung MD 11/15/2009 Office visit [...]
--- OUTSIDE RECORDS SUMMARY | 2018-01-07 14:40 | XMS REPORT ---
Author Author Ana Melara [facility] Address [address] [place], [place] [address] Care Team Providers Care Bottom Painter Name Role Phone Ana Melaar PCP Unavailable Allergies and Adverse Reactions Name [...] 10/09/2010 [employer] Co., Inc. MSD GARDASIL [id number] Intramuscular Left Deltoid 10/09/2010 06/12/2010 62 History [...] Policy Number Policy Group Number Start Date [place] Medical Assistance [facility] Prog [id number] N/A zzzTest Medicare A Test Medicare A void N/A History of Encounters Visit Date Visit Type Provider 04/05/[address] Ana Melara MD 03/08/[address] Ana Melara MD 02/21/2015 Office visit Marni Dorado SALES APPOINTMENT COORDINATOR 05/05/2011 Office visit Dalia Mariano SALES APPOINTMENT COORDINATOR 03/03/2011 Office visit Dalia Mariano SALES APPOINTMENT COORDINATOR 02/17/2011 Office visit Dalia Mariano SALES APPOINTMENT COORDINATOR 02/11/2011 Office visit Dalia Mariano SALES APPOINTMENT COORDINATOR 10/09/2010 Nurse visit Dalia Mariano SALES APPOINTMENT COORDINATOR 08/28/2010 Nurse visit Dalia Mariano SALES APPOINTMENT COORDINATOR 08/23/2010 Office visit Dalia Mariano SALES APPOINTMENT COORDINATOR 07/30/2010 Office visit Dalia Mariano SALES APPOINTMENT COORDINATOR 01/23/2010 Office visit Marga Fung MD 01/14/2010 Surgery Marga Fung MD 12/25/2009 Hospital Marga Fung MD 12/24/2009 Office visit Marga Fung MD 12/24/2009 Hospital Marga Fung MD 12/20/2009 Office visit Marga Fung MD 12/13/2009 Office visit Marga Fung MD 12/06/2009 Office visit Marga Fung MD 11/29/2009 Office visit Marga Fung MD 11/22/2009 Office visit Marga Fung MD 11/17/2009 [facility] Marga Fung MD 11/15/2009 Office visit Marga Fung MD 11/01/2009 Office visit Marga Fung MD 10/22/2009 Office visit Marga Fugn MD 10/08/2009 Office visit Marga Fung MD 09/17/2009 Office visit Marga Fung MD 08/16/2009 Office visit Marga Fung MD 07/19/2009 Office visit Marga Fung MD 06/21/2009 Office visit Marga Fung MD 05/31/2009 Office visit Marga Fung MD 05/24/2009 Office visit Marga Fung MD
--- OUTSIDE RECORDS SUMMARY | 2018-01-07 14:41 | XMS REPORT ---
Author Author Ana Melara [facility] Address [address] [place], [place] [address] Care Team Providers Care Scale Shooter Name Role Phone Ana Melara PCP Unavailable [...] 10/09/2010 [employer] Co[employer] Inc[employer] MSD GARDASIL [id number] Intramuscular Left Deltoid 10/09/2010 06/12/2010 62 History [...] Policy Number Policy Group Number Start Date [place] Medical [place] Program [place] Prog [id number] N/A [facility] void N/A History of Encounters Visit Date Visit Type Provider 03/08/[address] Ana Melara MD 02/21/2015 Office visit Marni Dorado SHEET FED PRINTER 05/05/2011 Office visit Dalia Mariano SHEET FED PRINTER 03/03/2011 Office visit Dalia Mariano SHEET FED PRINTER 02/17/2011 Office visit Dalia Mariano SHEET FED PRINTER 02/11/2011 Office visit Dalia Mariano SHEET FED PRINTER 10/09/2010 Nurse visit Dalia Mariano SHEET FED PRINTER 08/28/2010 Nurse visit Dalia Mariano SHEET FED PRINTER 08/23/2010 Office visit Dalia Mariano SHEET FED PRINTER 07/30/2010 Office visit Dalia Mariano SHEET FED PRINTER 01/23/2010 Office visit Marga Fung MD 01/14/2010 Surgery Marga Fung MD 12/25/2009 Hospital Marga Fung MD 12/24/2009 Office visit Marga Fung MD 12/24/2009 [facility] Marga Fung MD 12/20/2009 Office visit Marga Fung MD 12/13/2009 Office visit Marga Fung MD 12/06/2009 Office visit Marga Fung MD 11/29/2009 Office visit Marga Fung MD 11/22/2009 Office visit Marga Fung MD 11/17/2009 [facility] Marga Fung MD 11/15/2009 Office visit Marga [...]
--- OUTSIDE RECORDS SUMMARY | 2018-01-07 14:41 | XMS REPORT ---
Author Author Ana Melara [facility] Address [address] [place], [place] [address] Care Team Providers Care Buggy Operator Name Role Phone Ana Melara PCP Unavailable [...] OB US >/=14 WKS SNGL FETUS Returned 03/03/2011 12:00 AM X-RAY EXAM KNEE [...] Value 0.0240 ug/mLAFP MoM 1.02 hCG Value 42785.0 mIU/ mLhCG MoM 1.77 uE3 Value 0.70 ng/mLuE3 MoM 1.16 CARRIE Value 207.520 pg/mLDIA MoM 1.25 OSBR [place] 1 [place] [address] DSR (Second Trimester) 1IN 4435 DSR (By Age) 1 IN 1003 T18 Risk Not increased T18 (By Age) 1:3907 History Of Immunizations Name Date Admin Mfg Name Mfg Code Trade Name Lot# Route Inj Vis Given Vis Pub CVX HPV 08/28/2010 [employer]ck [employer] Co., Inc. MSD GARDASIL [id number] Intramuscular Left Deltoid 08/28/2010 03/13/2006 999 HPV 10/09/2010 [employer]ck [employer] Co., Inc. MSD GARDASIL [id number] Intramuscular Left Deltoid 10/09/2010 06/12/2010 62 History [...] septal defect repair Jun 20 2015 8:50AM Payers Insurance Name Company Name Plan Name Plan Number Policy Number Policy Group Number Start Date [facility] Comm [id number] N/A [place] Medical Assistance Program [place] Assistance Prog [id number] N/A zzzTest Medicare A Test Medicare A void N/A History of Encounters Visit Date Visit Type Provider 08/07/[address] Ana Melara MD 06/05/[address] Ana Melara MD 05/07/[address] Ana Melara MD 04/05/[address] Ana Melara MD 03/08/[address] Ana Melara MD 02/21/2015 Office visit Marni Dorado TAPE CALENDER 05/05/2011 Office visit Dalia Mariano TAPE CALENDER 03/03/2011 Office visit Dalia Mariano TAPE CALENDER 02/17/2011 Office visit Dalia Mariano TAPE CALENDER 02/11/2011 Office visit Dalia Mariano TAPE CALENDER 10/09/2010 Nurse visit Dalia Mariano TAPE CALENDER 08/28/2010 Nurse visit Dalia Mariano TAPE CALENDER 08/23/2010 Office visit Dalia Mariano TAPE CALENDER 07/30/2010 Office visit Dalia Mariano TAPE CALENDER 01/23/2010 Office visit Marga Fung MD 01/14/2010 Surgery Marga Fung MD 12/25/2009 [facility] Marga Fung MD 12/24/2009 Office visit Marga Fung MD 12/24/2009 [facility] Marga Fung MD 12/20/2009 Office visit Marga Fung MD 12/13/2009 Office visit Marga Fung MD 12/06/2009 Office visit Marga Fung MD 11/29/2009 Office visit Marga Fung MD 11/22/2009 Office visit Marga Fung MD 11/17/2009 [facility] Marga Fung MD 11/15/2009 [...]
--- OUTSIDE RECORDS SUMMARY | 2018-01-07 14:42 | XMS REPORT ---
Author Author Ana Melara [facility] Address [address] [place], [place] [address] Care Team Providers Care Offc Spec Name Role Phone Ana Melara PCP Unavailable [...] Value 0.0240 ug/mLAFP MoM 1.02 hCG Value 36223.0 mIU/ mLhCG MoM 1.77 uE3 Value 0.70 ng/mLuE3 MoM 1.16 CARRIE Value 207.520 pg/mLDIA MoM 1.25 OSBR [place] 1 [place] [address] DSR (Second Trimester) 1IN 4435 DSR (By [...] 10/09/2010 [employer]ck & Co., Inc. MSD GARDASIL [id number] Intramuscular Left Deltoid 10/09/2010 06/12/2010 62 Tdap 09/04/2015 [employer] SKB BOOSTRIX [id number] Intramuscular Right Deltoid 09/04/2015 [...] Policy Number Policy Group Number Start Date [facility] [id number] N/A [place] Medical [place] Program [place] Prog [id number] N/A zzzTest Medicare A Test Medicare A [...] MD 02/21/2015 Office visit Marni GermainMillicent Dorado LEARNING AND DEVELOPMENT ADMINISTRATOR 05/05/2011 Office visit Dalia Walker LEARNING AND DEVELOPMENT ADMINISTRATOR 03/03/2011 Office visit Dalia Walker LEARNING AND DEVELOPMENT ADMINISTRATOR 02/17/2011 Office visit Dalia Walker LEARNING AND DEVELOPMENT ADMINISTRATOR 02/11/2011 Office visit Dalia Walker LEARNING AND DEVELOPMENT ADMINISTRATOR 10/09/2010 Nurse visit Dalia Walker LEARNING AND DEVELOPMENT ADMINISTRATOR 08/28/2010 Nurse visit Dalia Walker LEARNING AND DEVELOPMENT ADMINISTRATOR 08/23/2010 Office visit Dalia Walker LEARNING AND DEVELOPMENT ADMINISTRATOR 07/30/2010 Office visit Dalia García LEARNING AND DEVELOPMENT ADMINISTRATOR 01/23/2010 Office visit Marga Fung MD 01/14/2010 Surgery Marga Fung MD 12/25/2009 [facility] Marga Fung MD 12/24/2009 Office visit Marga Fung MD 12/24/2009 [facility] Marga Fung MD 12/20/2009 Office visit Marga Fung MD 12/13/2009 Office visit Marga Fung MD 12/06/2009 Office visit Marga Fung MD 11/29/2009 Office visit Marga Fung MD 11/22/2009 Office visit Marga Fung MD 11/17/2009 [facility] Marga Fung MD 11/15/2009 Office visit [...]
--- OUTSIDE RECORDS SUMMARY | 2018-01-07 14:42 | XMS REPORT ---
Author Author Ana Melara [facility] Address [address] [place], [place] [address] Care Team Providers Care Racing Secretary Name Role Phone Ana Melara PCP Unavailable [...] Value 0.0240 ug/mLAFP MoM 1.02 hCG Value 00402.0 mIU/ mLhCG MoM 1.77 uE3 Value 0.70 ng/mLuE3 MoM 1.16 CARRIE Value 207.520 pg/mLDIA MoM 1.25 OSBR [place] 1 [place] [address] DSR (Second Trimester) 1IN 4435 DSR (By [...] 10/09/2010 [employer]ck [employer] Co., Inc. MSD GARDASIL [id number] Intramuscular Left Deltoid 10/09/2010 06/12/2010 62 Tdap 09/04/2015 [employer] SKB BOOSTRIX [id number] Intramuscular Right Deltoid 09/04/2015 [...] Policy Number Policy Group Number Start Date [facility] - [facility] Plan of [facility] Comm [id number] N/A [place] [facility] Program [place] Medical Assistance Prog [id number] N/A zzzTest Medicare A Test Medicare A void N/A History of Encounters Visit Date Visit Type Provider 09/04/[address] Ana Melara MD 08/07/[address] Ana Melara MD 06/05/[address] Ana Melara MD 05/07/[address] Ana Melara MD 04/05/[address] Ana Melara MD 03/08/[address] Ana Melara MD 02/21/2015 Office visit Marni Dorado ASSOCIATE APPLICATION DEVELOPER 05/05/2011 Office visit Dalia Mariano ASSOCIATE APPLICATION DEVELOPER 03/03/2011 Office visit Dalia Mariano ASSOCIATE APPLICATION DEVELOPER 02/17/2011 Office visit Dalia Mariano ASSOCIATE APPLICATION DEVELOPER 02/11/2011 Office visit Dalia Mariano ASSOCIATE APPLICATION DEVELOPER 10/09/2010 Nurse visit Dalia Mariano ASSOCIATE APPLICATION DEVELOPER 08/28/2010 Nurse visit Dalia Mariano ASSOCIATE APPLICATION DEVELOPER 08/23/2010 Office visit Dalia Mariano ASSOCIATE APPLICATION DEVELOPER 07/30/2010 Office visit Dalia Mariano ASSOCIATE APPLICATION DEVELOPER 01/23/2010 Office visit Marga Fung MD 01/14/2010 Surgery Marga Fung MD 12/25/2009 Hospital Marga Fung MD 12/24/2009 Office visit Marga Fung MD 12/24/2009 [facility] Marga Fung MD 12/20/2009 Office visit Marga Fung MD 12/13/2009 Office visit Marga Fung MD 12/06/2009 Office visit Marga Fung MD 11/29/2009 Office visit Marga Fung MD 11/22/2009 Office visit Marga Fung MD 11/17/2009 [facility] Marga Fung MD 11/15/2009 Office visit [...]
--- OUTSIDE RECORDS SUMMARY | 2018-01-07 14:43 | XMS REPORT ---
Author Author Ana Melara [facility] Address [address] [place], [place] [address] Care Team Providers Care Colliery Clerk Name Role Phone Ana Melara PCP Unavailable [...] Value 0.0240 ug/mLAFP MoM 1.02 hCG Value 00653.0 mIU/ mLhCG MoM 1.77 uE3 Value 0.70 ng/mLuE3 MoM 1.16 CARRIE Value 207.520 pg/mLDIA MoM 1.25 OSBR [place] 1 [place] [address] DSR (Second Trimester) 1IN 4435 DSR (By [...] 10/09/2010 [employer]ck [employer] Co., Inc. MSD GARDASIL [id number] Intramuscular Left Deltoid 10/09/2010 06/12/2010 62 Tdap 09/04/2015 [employer] SKB BOOSTRIX [id number] Intramuscular Right Deltoid 09/04/2015 [...] Policy Number Policy Group Number Start Date [facility] - [facility] of [facility] Comm [id number] N/A [place] [facility] Program [place] Medical Assistance Prog [id number] N/A zzzTest Medicare A Test Medicare A [...] Melara MD 02/21/2015 Office visit Marni Dorado LOTTERY CLERK 05/05/2011 Office visit Dalia Mariano LOTTERY CLERK 03/03/2011 Office visit Dalia Mariano LOTTERY CLERK 02/17/2011 Office visit Dalia Mariano LOTTERY CLERK 02/11/2011 Office visit Dalia Mariano LOTTERY CLERK 10/09/2010 Nurse visit Dalia Mariano LOTTERY CLERK 08/28/2010 Nurse visit Dalia Mariano LOTTERY CLERK 08/23/2010 Office visit Dalia Mariano LOTTERY CLERK 07/30/2010 Office visit Dalia Mariano LOTTERY CLERK 01/23/2010 Office visit Marga Fung MD 01/14/2010 Surgery Marga Fung MD 12/25/2009 Hospital Marga Fung MD 12/24/2009 Office visit Marga Fung MD 12/24/2009 [facility] Marga Fung MD 12/20/2009 Office visit Marga Fung MD 12/13/2009 Office visit Marga Fung MD 12/06/2009 Office visit Marga Fung MD 11/29/2009 Office visit Marga Fung MD 11/22/2009 Office visit Marga Fung MD 11/17/2009 [facility] Marga Fung MD 11/15/2009 Office [...]
--- OUTSIDE RECORDS SUMMARY | 2018-01-07 14:43 | XMS REPORT ---
Author Author Ana Melara [facility] Address [address] [place], [place] [id number] Care Team Providers Care Emergency Department Coordinator Name Role Phone Ana Melara PCP Unavailable Allergies and Adverse Reactions Name Reaction Notes NO KNOWN DRUG ALLERGIES Plan of Treatment Planned Activity Comments Planned Date Planned Time Plan/Goal RH IG FULL-DOSE IM 08/07/2015 12:00 AM GLUCOSE TOLERANCE TEST (GTT) 08/07/2015 12:00 AM COMPLETE CBC W/AUTO DIFF WBC 08/07/2015 12:00 AM Medications Name Start Date Expiration [...] Value 0.0240 ug/mLAFP MoM 1.02 hCG Value 42431.0 mIU/ mLhCG MoM 1.77 uE3 Value 0.70 ng/mLuE3 MoM 1.16 CARRIE Value 207.520 pg/mLDIA MoM 1.25 OSBR [place] 1 [place] [address] DSR (Second Trimester) 1IN 4435 DSR (By Age) 1 IN 1003 T18 Risk Not increased T18 (By Age) 1:3907 History Of Immunizations Name Date Admin Mfg Name Mfg Code Trade Name Lot# Route Inj Vis Given Vis Pub CVX HPV 08/28/2010 Merck & Co., Inc. MSD GARDASIL [id number] Intramuscular Left Deltoid 08/28/2010 03/13/2006 999 HPV 10/09/2010 [employer]ck [employer] Co., Inc. MSD GARDASIL [id number] Intramuscular Left Deltoid 10/09/2010 06/12/2010 62 History [...] in second trimester Aug 07 2015 2:00PM Payers Insurance Name Company Name Plan Name Plan Number Policy Number Policy Group Number Start Date [facility] - [facility] - [facility] Plan [facility] Comm [id number] N/A [place] Medical Assistance Program [place] Medical Assistance Prog [id number] N/A zzzTest Medicare A Test Medicare A void N/A History of Encounters Visit Date Visit Type Provider 08/07/[address] Ana Melara MD 06/05/[address] Ana Melara MD 05/07/[address] Ana Melara MD 04/05/[address] Ana Melara MD 03/08/[address] Ana Melara MD 02/21/2015 Office visit Marni Dorado WRONG ADDRESS CLERK 05/05/2011 Office visit Dalia Mariano WRONG ADDRESS CLERK 03/03/2011 Office visit Dalia Mariano WRONG ADDRESS CLERK 02/17/2011 Office visit Dalia Mariano WRONG ADDRESS CLERK 02/11/2011 Office visit Dalia Mariano WRONG ADDRESS CLERK 10/09/2010 Nurse visit Dalia Mariano WRONG ADDRESS CLERK 08/28/2010 Nurse visit Dalia Mariano WRONG ADDRESS CLERK 08/23/2010 Office visit Dalia Mariano WRONG ADDRESS CLERK 07/30/2010 Office visit Dalia Mariano WRONG ADDRESS CLERK 01/23/2010 Office visit Marga Fung MD 01/14/2010 Surgery Marga Fung MD 12/25/2009 [facility] Marga Fung MD 12/24/2009 Office visit Marga Fung MD 12/24/2009 [facility] Marga Fung MD 12/20/2009 Office visit Marga Fung MD 12/13/2009 Office visit Marga Fung MD 12/06/2009 Office visit Marga Fung MD 11/29/2009 Office visit Marga Fung MD 11/22/2009 Office visit Marga Fung MD 11/17/2009 [facility] Marga Fung MD 11/15/2009 Office visit Marga Fung MD 11/01/2009 Office visit Marga Fung MD 10/22/2009 Office visit Marga Fung MD 10/08/2009 Office visit Marga Fung MD 09/17/2009 Office visit Magra Fung MD 08/16/2009 Office visit Marga Fung MD 07/19/2009 Office visit Marga Fung MD 06/21/2009 Office visit Marga Fung MD 05/31/2009 Office visit Marga Fung MD 05/24/2009 Office visit Marga Fung MD
--- OUTSIDE RECORDS SUMMARY | 2018-01-07 14:44 | XMS REPORT ---
Author Author Ericka Donnelly [facility] Address [address] [place], [place] [id number] Care Team Providers Care Ornamental Plasterer Helper Name Role Phone Ericka Donnelly PCP Unavailable Allergies and Adverse Reactions Name Reaction Notes NO KNOWN DRUG ALLERGIES Plan of Treatment Planned Activity Comments Planned Date Planned Time Plan/Goal OB US LIMITED FETUS(S) 10/18/2015 12:00 AM OB US LIMITED FETUS(S) 10/18/2015 12:00 AM Medications Name Start Date Expiration [...] HC BMI BSA BMI Percentile O2 Sat(%) 10/17/2015 3:19:00 PM 121 mmHg 59 mmHg 91 bpm 178 lbs 64 in 30.55 kg/m2 1.91 m2 02/21/2015 11:15:00 AM 130 mmHg 70 mmHg 80 bpm 20 rpm 214 lbs 64 in 36.7326 kg/m 2.0936 m 05/05/2011 10:30:00 AM 126 mmHg 62 mmHg 106 bpm 18 rpm 96.8 F 205 lbs 64 in 35.19 kg/m2 2.05 m2 97 % 03/03/2011 1:22:00 PM 120 mmHg 68 mmHg 66 bpm 18 rpm 97 F 202.375 lbs 64 in 34.7372 kg/m 2.036 m 02/17/2011 1:44:00 PM 122 mmHg 64 mmHg 68 bpm 18 rpm 98.2 F 198.125 lbs 64 in 34.01 kg/m2 2.01 m2 02/11/2011 9:40:00 AM 103 mmHg 77 mmHg 64 bpm 18 rpm 97.7 F 197.125 lbs 64 in 33.8361 kg/m 2.0094 m 10/09/2010 9:06:00 AM 118 mmHg 68 mmHg 74 bpm 97.4 F 189 lbs 08/23/2010 10:06:00 AM 126 mmHg 70 mmHg 73 bpm 20 rpm 97.9 F 180.5 lbs 64 in 30.9824 kg/m 1.9228 m 0 % 99 % 07/30/2010 8:56:00 AM 96 mmHg 68 mmHg 66 bpm 20 rpm 97.5 F 177.5 lbs 64 in 30.47 kg/m2 1.91 m2 0 % 98 % 01/23/2010 10:43:00 AM 104 mmHg 64 mmHg 48 bpm 97.8 F 150 lbs 01/14/2010 9:15:00 AM 112 mmHg 72 mmHg 49 bpm 98 F 149 lbs 64 in 25.58 kg/m2 1.75 m2 81.5 % 06/21/2009 8:54:00 AM 117 mmHg 65 mmHg 73 bpm 20 rpm 97.8 F 160.5 lbs 05/31/2009 9:42:00 AM 134 mmHg 66 mmHg 66 bpm 161 lbs 05/24/2009 4:02:00 PM 135 mmHg 71 mmHg 77 bpm 162 lbs 64 in 27.807 kg/m 1.8216 m 89.9 % Social History Name Description Comments [...] Value 0.0240 ug/mLAFP MoM 1.02 hCG Value 46368.0 mIU/ mLhCG MoM 1.77 uE3 Value 0.70 ng/mLuE3 MoM 1.16 CARRIE Value 207.520 pg/mLDIA MoM 1.25 [place]BR [place] 1 [place] [address] DSR (Second Trimester) 1IN 4435 DSR (By [...] 10/09/2010 [employer]ck [employer] Co., Inc. MSD GARDASIL [id number] Intramuscular Left Deltoid 10/09/2010 06/12/2010 62 Tdap 09/04/2015 [employer] SKB BOOSTRIX [id number] Intramuscular Right Deltoid 09/04/2015 [...] in third trimester Oct 02 2015 3:43PM Small for gestational age fetus affecting management of mother in [place] in third trimester Oct 17 2015 4:50PM Payers Insurance Name Company Name Plan Name Plan Number Policy Number Policy Group Number Start Date [facility] - RHC - [facility] RHC Comm [id number] N/A [place] Medical Assistance Program [place] Medical [place] Prog [id number] N/A zzzTest Medicare A Test Medicare A void N/A History of Encounters Visit Date Visit Type Provider 10/17/2015 Office visit Ericka Donnelly DO 10/09/[address] Ana Melara MD [...] Melara MD 02/21/2015 Office visit Marni Dorado METEOROLOGY TEACHER 05/05/2011 Office visit Dalia Mariano METEOROLOGY TEACHER 03/03/2011 Office visit Dalia Mariano METEOROLOGY TEACHER 02/17/2011 Office visit Dalia Mariano METEOROLOGY TEACHER 02/11/2011 Office visit Dalia Walker METEOROLOGY TEACHER 10/09/2010 Nurse visit Dalia Walker METEOROLOGY TEACHER 08/28/2010 Nurse visit Dalia Walker METEOROLOGY TEACHER 08/23/2010 Office visit Dalia Mariano METEOROLOGY TEACHER 07/30/2010 Office visit Dalia Mariano METEOROLOGY TEACHER 01/23/2010 Office visit Marga Fung MD 01/14/2010 Surgery Marga Fung MD 12/25/2009 [facility] Marga Fung MD 12/24/2009 Office visit Marga uFng MD 12/24/2009 [facility] Marga Fung MD 12/20/2009 Office visit Marga Fung MD 12/13/2009 Office visit Marga Fung MD 12/06/2009 Office visit Marga Fung MD 11/29/2009 Office visit Marga Fung MD 11/22/2009 Office visit Marga Fung MD 11/17/2009 [facility] Marga Fung MD 11/15/2009 [...]
--- OUTSIDE RECORDS SUMMARY | 2018-01-07 14:44 | XMS REPORT ---
Author Author Ana Melara [facility] Address [address] [place], [place] [phone] Care Team Providers Care Systems Designer Name Role Phone Ana Melara PCP Unavailable [...] Value 0.0240 ug/mLAFP MoM 1.02 hCG Value 92229.0 mIU/ mLhCG MoM 1.77 uE3 Value 0.70 ng/mLuE3 MoM 1.16 CARRIE Value 207.520 pg/mLDIA MoM 1.25 [place] 1 [place] [address] DSR (Second Trimester) 1IN 4435 DSR (By [...] 10/09/2010 Merck [employer] Co., Inc. MSD GARDASIL [id number] Intramuscular Left Deltoid 10/09/2010 06/12/2010 62 Tdap 09/04/2015 [employer] SKB BOOSTRIX [id number] Intramuscular Right Deltoid 09/04/2015 [...] Policy Number Policy Group Number Start Date [facility] - [facility] - [facility] Plan of [facility] Comm [id number] N/A [facility] Program [place] Medical Assistance Prog [id number] N/A zzzTest Medicare A Test Medicare A [...] Melara MD 02/21/2015 Office visit Marni Dorado NIGHT WAREHOUSE MANAGER 05/05/2011 Office visit Dalia Mariano NIGHT WAREHOUSE MANAGER 03/03/2011 Office visit Dalia Mariano NIGHT WAREHOUSE MANAGER 02/17/2011 Office visit Dalia Mariano NIGHT WAREHOUSE MANAGER 02/11/2011 Office visit Dalia Mariano NIGHT WAREHOUSE MANAGER 10/09/2010 Nurse visit Dalia Mariano NIGHT WAREHOUSE MANAGER 08/28/2010 Nurse visit Dalia Mariano NIGHT WAREHOUSE MANAGER 08/23/2010 Office visit Dalia Mariano NIGHT WAREHOUSE MANAGER 07/30/2010 Office visit Dalia Mariano NIGHT WAREHOUSE MANAGER 01/23/2010 Office visit Marga Fung MD 01/14/2010 Surgery Marga Fung MD 12/25/2009 Hospital Marga Fung MD 12/24/2009 Office visit Marga Fung MD 12/24/2009 [facility] Marga Fung MD 12/20/2009 Office visit Marga Fung MD 12/13/2009 Office visit Marga Fung MD 12/06/2009 Office visit Marga Fung MD 11/29/2009 Office visit Marga Fung MD 11/22/2009 Office visit Marga Fung MD 11/17/2009 [facility] Marga Fung MD 11/15/2009 Office visit [...]
--- OUTSIDE RECORDS SUMMARY | 2018-01-07 14:45 | XMS REPORT ---
Author Author Ericka Donnelly [facility] Address [address] [place], [place] [phone] Care Team Providers Care Meal Attendant Name Role Phone Ericka Donnelly PCP Unavailable [...] 10/02/2015 12:00 AM CULTURE SCREEN ONLY Returned 10/18/2015 12:00 AM OB US LIMITED FETUS(S) Returned 05/24/2009 12:00 AM OBSTETRIC PANEL Reviewed [...] Value 0.0240 ug/mLAFP MoM 1.02 hCG Value 90230.0 mIU/ mLhCG MoM 1.77 uE3 Value 0.70 ng/mLuE3 MoM 1.16 CARRIE Value 207.520 pg/mLDIA MoM 1.25 OSBR [place] 1 [place] [address] DSR (Second Trimester) 1IN 4435 DSR (By [...] 10/09/2010 Merck [employer] Co., Inc. MSD GARDASIL [id number] Intramuscular Left Deltoid 10/09/2010 06/12/2010 62 Tdap 09/04/2015 [employer] SKB BOOSTRIX [id number] Intramuscular Right Deltoid 09/04/2015 [...] Policy Number Policy Group Number Start Date [facility] Plan [facility] RHC Comm [id number] N/A [place] Program [place] Prog [id number] N/A zzzTest Medicare A Test Medicare A [...] Melara MD 02/21/2015 Office visit Marni Dorado SENIOR OFFICER 05/05/2011 Office visit Dalia Mariano SENIOR OFFICER 03/03/2011 Office visit Dalia Mariano SENIOR OFFICER 02/17/2011 Office visit Dalia Mariano SENIOR OFFICER 02/11/2011 Office visit Dalia Walker SENIOR OFFICER 10/09/2010 Nurse visit Dalia Walker SENIOR OFFICER 08/28/2010 Nurse visit Dalia Walker SENIOR OFFICER 08/23/2010 Office visit Dalia Mariano SENIOR OFFICER 07/30/2010 Office visit Dalia Mariano SENIOR OFFICER 01/23/2010 Office visit Marga Fung MD 01/14/2010 Surgery Marga Fung MD 12/25/2009 [facility] Marga Fung MD 12/24/2009 Office visit Marga Fung MD 12/24/2009 [facility] Marga Fung MD 12/20/2009 Office visit Marga Fung MD 12/13/2009 Office visit Marga Fung MD 12/06/2009 Office visit Marga Fung MD 11/29/2009 Office visit Marga Fung MD 11/22/2009 Office visit Marga Fung MD 11/17/2009 [facility] Marga Fung MD 11/15/2009 Office visit [...]
--- OUTSIDE RECORDS SUMMARY | 2018-01-07 14:45 | XMS REPORT ---
Author Author Ana Melara [facility] Address [address] [place], [place] [phone] Care Team Providers Care Cash Management Officer Name Role Phone Ana Melara PCP Unavailable Allergies and Adverse Reactions Name Reaction Notes NO KNOWN DRUG ALLERGIES Plan of Treatment Planned Activity Comments Planned Date Planned Time Plan/Goal OB US LIMITED FETUS(S) 10/18/2015 12:00 AM Medications Active Name Start Date Estimated Completion Date SIG Comments ferrous sulfate 325 mg (65 mg iron) oral tablet take 1 tablet by oral route 2 times a day docusate sodium 100 mg oral capsule take 1 capsule (100 mg) by oral route once daily [place] 5-325 mg oral tablet 10/29/2015 take 1 tablet by oral route every 6 hours as needed for pain Name Start Date Expiration Date SIG Comments [...] tablets,dose pack 03/03/2011 05/05/2011 take as directed oxycodone-acetaminophen 5-325 mg oral tablet 10/29/2015 take 1 tablet by oral route every 6 hours as needed Problem List Description Status Onset Care, High Risk Active 05/29/2009 Vital Signs Date Time BP-Sys(mm[Hg] BP-Carrie(mm[Hg]) HR(bpm) RR(rpm) Temp WT HT HC BMI BSA BMI Percentile O2 Sat(%) 10/29/2015 9:20:00 AM 131 mmHg 88 mmHg 81 bpm 97.4 F 10/17/2015 3:19:00 PM 121 mmHg 59 mmHg 91 bpm 178 lbs 64 in 30.5533 kg/m 1.9094 m 02/21/2015 11:15:00 AM 130 mmHg 70 mmHg [...] Value 0.0240 ug/mLAFP MoM 1.02 hCG Value 60907.0 mIU/ mLhCG MoM 1.77 uE3 Value 0.70 ng/mLuE3 MoM 1.16 CARRIE Value 207.520 pg/mLDIA MoM 1.25 OSBR [place] 1 [place] [address] DSR (Second Trimester) 1IN 4435 DSR (By [...] 10/09/2010 [employer]ck [employer] Co., Inc. MSD GARDASIL [id number] Intramuscular Left Deltoid 10/09/2010 06/12/2010 62 Tdap 09/04/2015 [employer] SKB BOOSTRIX [id number] Intramuscular Right Deltoid 09/04/2015 [...] in third trimester Oct 17 2015 4:50PM Third trimester Oct 17 2015 3:20PM Postoperative Examination Following Surgery Oct 29 2015 9:26AM Payers Insurance Name Company Name Plan Name Plan Number Policy Number Policy Group Number Start Date [facility] - RHC - [facility] RHC Comm [id number] N/A [facility] Comm Plan of [id number] N/A [place] Medical Assistance [facility] Medical Assistance Prog [id number] N/A zzzTest Medicare A Test Medicare A void N/A History of Encounters Visit Date Visit Type Provider 10/29/[address] Ana Melara MD 10/22/2015 [facility] Marni Dorado STRIPE MATCHER 10/22/[address] [facility] [address] Ana Melara MD 10/17/2015 Office visit Ericka Donnelly DO 10/09/2015 [...] Melara MD 02/21/2015 Office visit Marni Dorado STRIPE MATCHER 05/05/2011 Office visit Dalia Mariano STRIPE MATCHER 03/03/2011 Office visit Dalia Mariano STRIPE MATCHER 02/17/2011 Office visit Dalia Mariano STRIPE MATCHER 02/11/2011 Office visit Dalia Mariano STRIPE MATCHER 10/09/2010 Nurse visit Dalia Mariano STRIPE MATCHER 08/28/2010 Nurse visit Dalia Mariano STRIPE MATCHER 08/23/2010 Office visit Dalia Mariano STRIPE MATCHER 07/30/2010 Office visit Dalia Mariano STRIPE MATCHER 01/23/2010 Office visit Marga Fung MD 01/14/2010 Surgery Marga Fung MD 12/25/2009 Hospital Marga Fung MD 12/24/2009 Office visit Marga Fung MD 12/24/2009 [facility] Marga Fung MD 12/20/2009 Office visit Marga Fung MD 12/13/2009 Office visit Marga Fung MD 12/06/2009 Office visit Marga Fung MD 11/29/2009 Office visit Marga Fung MD 11/22/2009 Office visit Marga Fung MD 11/17/2009 [facility] Marga Fung MD 11/15/2009 Office visit Marga Fung MD 11/01/2009 Office visit Marga Fung MD 10/22/2009 Office visit Marga Fung MD 10/08/2009 Office visit aMrga Fung MD 09/17/2009 Office visit Marga Fung MD 08/16/2009 Office visit Marga Fung MD 07/19/2009 Office visit Marga Fung MD 06/21/2009 Office visit Marga Fung MD 05/31/2009 Office visit Marga Fung MD 05/24/2009 Office visit Marga Fung MD
--- OUTSIDE RECORDS SUMMARY | 2018-01-07 14:46 | XMS REPORT ---
Author Author Ana Melara [facility] Address [address] [place], [place] [address] Care Team Providers Care Instrumentation Tech Name Role Phone Ana Melara PCP Unavailable [...] Value 0.0240 ug/mLAFP MoM 1.02 hCG Value 55489.0 mIU/ mLhCG MoM 1.77 uE3 Value 0.70 ng/mLuE3 MoM 1.16 CARRIE Value 207.520 pg/mLDIA MoM 1.25 OSBR [place] 1 [place] [address] DSR (Second Trimester) 1IN 4435 DSR (By Age) 1 IN 1003 T18 Risk Not increased T18 (By Age) 1:3907 History Of Immunizations Name Date Admin Mfg Name Mfg Code Trade Name Lot# Route Inj Vis Given Vis Pub CVX HPV 08/28/2010 Merck & Co., Inc. MSD GARDASIL [id number] Intramuscular Left Deltoid 08/28/2010 03/13/2006 999 HPV 10/09/2010 [employer]ck [employer] Co., Inc. MSD GARDASIL [id number] Intramuscular Left Deltoid 10/09/2010 06/12/2010 62 History [...] Policy Number Policy Group Number Start Date [facility] - [facility] Comm [id number] N/A [place] Program [place] Prog [id number] N/A zzzTest Medicare A Test Medicare A void N/A History of Encounters Visit Date Visit Type Provider 06/05/[address] Ana Melara MD 05/07/[address] Ana Melara MD 04/05/[address] Ana Melara MD 03/08/[address] Ana Melara MD 02/21/2015 Office visit Marni Dorado WEATHERIZATION COORDINATOR 05/05/2011 Office visit Dalia Mariano WEATHERIZATION COORDINATOR 03/03/2011 Office visit Dalia Mariano WEATHERIZATION COORDINATOR 02/17/2011 Office visit Dalia Mariano WEATHERIZATION COORDINATOR 02/11/2011 Office visit Dalia Mariano WEATHERIZATION COORDINATOR 10/09/2010 Nurse visit Dalia Mariano WEATHERIZATION COORDINATOR 08/28/2010 Nurse visit Dalia Mariano WEATHERIZATION COORDINATOR 08/23/2010 Office visit Dalia Mariano WEATHERIZATION COORDINATOR 07/30/2010 Office visit Dalia Mariano WEATHERIZATION COORDINATOR 01/23/2010 Office visit Marga Fung MD 01/14/2010 Surgery Marga Fung MD 12/25/2009 [facility] Marga Fung MD 12/24/2009 Office visit Marga Fung MD 12/24/2009 [facility] Marga Fung MD 12/20/2009 Office visit Marga Fung MD 12/13/2009 Office visit Marga Fung MD 12/06/2009 Office visit Marga Fung MD 11/29/2009 Office visit Marga Fung MD 11/22/2009 Office visit Marga Fung MD 11/17/2009 [facility] Marga Fung MD 11/15/2009 Office [...]
--- OUTSIDE RECORDS SUMMARY | 2018-01-07 14:46 | XMS REPORT ---
Author Author Ana Melara [facility] Address [address] [place], [place] [address] Care Team Providers Care Catalyst Recovery Operator Name Role Phone Ana Melara PCP [...] 1/2 tablet by oral route QD Medrol (Anotine) 4 mg oral tablets,dose pack 03/03/2011 05/05/2011 [...] Value 0.0240 ug/mLAFP MoM 1.02 hCG Value 36705.0 mIU/ mLhCG MoM 1.77 uE3 Value 0.70 ng/mLuE3 MoM 1.16 CARRIE Value 207.520 pg/mLDIA MoM 1.25 OSBR [place] 1 [place] [address] DSR (Second Trimester) 1IN 4435 DSR (By [...] 10/09/2010 [employer]ck [employer] Co., Inc. MSD GARDASIL 00756 Intramuscular Left Deltoid 10/09/2010 06/12/2010 62 History [...] Policy Number Policy Group Number Start Date [facility] - RHC - Community Plan of [facility] RHC Comm [id number] N/A [place] Medical Assistance Program [place] Medical Assistance Prog [id number] N/A zzzTest Medicare A Test Medicare A void N/A History of Encounters Visit Date Visit Type Provider 09/04/[address] Ana Melara MD 08/07/[address] Ana Melara MD 06/05/[address] Ana Melara MD 05/07/[address] Ana Melara MD 04/05/[address] Ana Melara MD 03/08/[address] Ana Melara MD 02/21/2015 Office visit Manri Dorado MONOGRAM MAKER 05/05/2011 Office visit Dalia Mariano MONOGRAM MAKER 03/03/2011 Office visit Dalia Mariano MONOGRAM MAKER 02/17/2011 Office visit Dalia Mariano MONOGRAM MAKER 02/11/2011 Office visit Dalia Mariano MONOGRAM MAKER 10/09/2010 Nurse visit Dalia Mariano MONOGRAM MAKER 08/28/2010 Nurse visit Dalia Mariano MONOGRAM MAKER 08/23/2010 Office visit Dalia Mariano MONOGRAM MAKER 07/30/2010 Office visit Dalia Mariano MONOGRAM MAKER 01/23/2010 Office visit Marga Fung MD 01/14/2010 [...] visit Marga Fung MD 10/22/2009 Office visit Marag Fung MD 10/08/2009 Office visit Marga Fung MD 09/17/2009 Office visit Marga Fung MD 08/16/2009 Office visit Marga Fung MD 07/19/2009 Office visit Marga Fung MD 06/21/2009 Office visit Marga Fung MD 05/31/2009 Office visit Marga Fung MD 05/24/2009 Office visit Marga Fung MD
--- OUTSIDE RECORDS SUMMARY | 2018-01-07 14:47 | XMS REPORT ---
Author Author Ericka Donnelly Organization [facility] Address [address] [place], [place] [address] Care Team Providers Care Punch Operator Name Role Phone Ericka Donnelly PCP Unavailable [...] Value 0.0240 ug/mLAFP MoM 1.02 hCG Value 23964.0 mIU/ mLhCG MoM 1.77 uE3 Value 0.70 ng/mLuE3 MoM 1.16 CARRIE Value 207.520 pg/mLDIA MoM 1.25 [place] 1 [place] [address] DSR (Second Trimester) 1IN 4435 DSR (By [...] 10/09/2010 [employer]ck [employer] Co., Inc. MSD GARDASIL [id number] Intramuscular Left Deltoid 10/09/2010 06/12/2010 62 Tdap 09/04/2015 [email or web address] SKB BOOSTRIX [id number] Intramuscular Right Deltoid 09/04/2015 [...] Policy Number Policy Group Number Start Date [facility] - RHC - [facility] [id number] N/A [place] Medical [place] Program [place] Prog [id number] N/A zzzTest Medicare A Test Medicare A [...] MD 02/21/2015 Office visit Marni MarcellusMillicent Dorado EQUIPMENT CLEANER 05/05/2011 Office visit Dalia Walker EQUIPMENT CLEANER 03/03/2011 Office visit Dalia Walker EQUIPMENT CLEANER 02/17/2011 Office visit Dalia Walker EQUIPMENT CLEANER 02/11/2011 Office visit Dalia Walker EQUIPMENT CLEANER 10/09/2010 Nurse visit Dalia Walker EQUIPMENT CLEANER 08/28/2010 Nurse visit Dalia Walker EQUIPMENT CLEANER 08/23/2010 Office visit Dalia Walker EQUIPMENT CLEANER 07/30/2010 Office visit Dalia García EQUIPMENT CLEANER 01/23/2010 Office visit Marga Fung MD 01/14/2010 Surgery Marga Fung MD 12/25/2009 Hospital Marga Fung MD 12/24/2009 Office visit Marga Fung MD 12/24/2009 [facility] Marga Fung MD 12/20/2009 Office visit Marga Fung MD 12/13/2009 Office visit Marga Fnug MD 12/06/2009 Office visit Marga Fung MD [...]
--- OUTSIDE RECORDS SUMMARY | 2018-01-07 14:47 | XMS REPORT ---
Author Author Ana Melara [facility] Address [address] [place], [place] [phone] Care Team Providers Care Thumb Sewer Name Role Phone Ana Melara PCP Unavailable [...] Value 0.0240 ug/mLAFP MoM 1.02 hCG Value 60324.0 mIU/ mLhCG MoM 1.77 uE3 Value 0.70 ng/mLuE3 MoM 1.16 CARRIE Value 207.520 pg/mLDIA MoM 1.25 OSBR [place] 1 [place] [address] DSR (Second Trimester) 1IN 4435 DSR (By [...] 10/09/2010 [employer]ck [employer] Co., Inc. MSD GARDASIL [id number] Intramuscular Left Deltoid 10/09/2010 06/12/2010 62 Tdap 09/04/2015 [employer] SKB BOOSTRIX [id number] Intramuscular Right Deltoid 09/04/2015 [...] Policy Number Policy Group Number Start Date [facility] - RHC - Community Plan of [facility] RHC Comm [id number] N/A [place] Program [place] Prog [id number] N/A zzzTest Medicare A Test Medicare A [...] Melara MD 02/21/2015 Office visit Marni Dorado MANAGING BROKER 05/05/2011 Office visit Dalia Walker MANAGING BROKER 03/03/2011 Office visit Dalia Walker MANAGING BROKER 02/17/2011 Office visit Dalia Walker MANAGING BROKER 02/11/2011 Office visit Dalia Walker MANAGING BROKER 10/09/2010 Nurse visit Dalia Walker MANAGING BROKER 08/28/2010 Nurse visit Dalia Walker MANAGING BROKER 08/23/2010 Office visit Dalia Walker MANAGING BROKER 07/30/2010 Office visit Dalia Walker MANAGING BROKER 01/23/2010 Office visit Marga Fung MD 01/14/2010 Surgery Marga Fung MD 12/25/2009 [facility] Marga Fung MD 12/24/2009 Office visit Marga Fung MD 12/24/2009 [facility] Marga Fung MD 12/20/2009 Office visit Marga Fung MD 12/13/2009 Office visit Marga Fung MD 12/06/2009 Office visit Marga Fung MD 11/29/2009 Office visit Marga Fung MD 11/22/2009 Office visit Marga Fung MD 11/17/2009 [facility] Marga Fung MD 11/15/2009 Office visit Marga [...]
--- OUTSIDE RECORDS SUMMARY | 2018-01-07 14:48 | XMS REPORT ---
Author Author Ana Melara [facility] Address [address] [place], [place] [address] Care Team Providers Care Senior Project Manager Name Role Phone Ana Melara PCP Unavailable Allergies and Adverse Reactions Name Reaction Notes NO KNOWN DRUG ALLERGIES Plan of Treatment Planned Activity Comments Planned Date Planned Time Plan/Goal CYTOPATH C/V THIN LAYER 12/03/2015 12:00 AM Medications Active Name Start Date Estimated Completion Date SIG Comments ferrous sulfate 325 mg (65 mg iron) oral tablet take 1 tablet by oral route 2 times a day docusate sodium 100 mg oral capsule take 1 capsule (100 mg) by oral route once daily Vitamin oral tablet take 1 tablet by oral route once daily Name Start Date Expiration Date SIG Comments [...] oral route every 6 hours as needed [place] 5-325 mg oral tablet 10/29/2015 12/03/2015 take 1 tablet by oral route every 6 hours as needed for pain Problem List Description Status Onset Care, High Risk Active 05/29/2009 Vital Signs Date Time BP-Sys(mm[Hg] BP-Carrie(mm[Hg]) HR(bpm) RR(rpm) Temp WT HT HC BMI BSA BMI Percentile O2 Sat(%) 12/03/2015 10:44:00 AM 121 mmHg 75 mmHg 55 bpm 98.6 F 168 lbs 64 in 28.84 kg/m2 1.85 m2 10/29/2015 9:20:00 AM 131 mmHg 88 mmHg 81 bpm 97.4 F 10/17/2015 3:19:00 PM 121 mmHg 59 mmHg 91 bpm 178 lbs 64 in 30.55 kg/m2 1.91 m2 02/21/2015 11:15:00 AM 130 mmHg 70 mmHg 80 bpm 20 rpm 214 lbs 64 in 36.73 kg/m2 2.0936 m 05/05/2011 10:30:00 AM 126 mmHg 62 mmHg 106 bpm 18 rpm 96.8 F 205 lbs 64 in 35.1878 kg/m 2.05 m2 97 % 03/03/2011 1:22:00 PM 120 mmHg 68 mmHg 66 bpm 18 rpm 97 F 202.375 lbs 64 in 34.74 kg/m2 2.036 m 02/17/2011 1:44:00 PM 122 mmHg 64 mmHg 68 bpm 18 rpm 98.2 F 198.125 lbs 64 in 34.0077 kg/m 2.01 m2 02/11/2011 9:40:00 AM 103 mmHg 77 mmHg 64 bpm 18 rpm 97.7 F 197.125 lbs 64 in 33.84 kg/m2 2.0094 m 10/09/2010 9:06:00 AM 118 mmHg 68 mmHg 74 bpm 97.4 F 189 lbs 08/23/2010 10:06:00 AM 126 mmHg 70 mmHg 73 bpm 20 rpm 97.9 F 180.5 lbs 64 in 30.98 kg/m2 1.9228 m 0 % 99 % 07/30/2010 8:56:00 AM 96 mmHg 68 mmHg 66 bpm 20 rpm 97.5 F 177.5 lbs 64 in 30.4675 kg/m 1.91 m2 0 % 98 % 01/23/2010 10:43:00 AM 104 mmHg 64 mmHg 48 bpm 97.8 F 150 lbs 01/14/2010 9:15:00 AM 112 mmHg 72 mmHg 49 bpm 98 F 149 lbs 64 in 25.5755 kg/m 1.75 m2 81.5 % 06/21/2009 8:54:00 AM 117 mmHg 65 mmHg 73 bpm 20 rpm 97.8 F 160.5 lbs 05/31/2009 9:42:00 AM 134 mmHg 66 mmHg 66 bpm 161 lbs 05/24/2009 4:02:00 PM 135 mmHg 71 mmHg 77 bpm 162 lbs 64 in 27.81 kg/m2 1.82 m2 89.9 % Social History Name Description Comments History of tobacco usage Quit smoking in February - smoking 1-2cig/day denies alcohol use Tobacco Former [...] 12:00 AM OB US LIMITED FETUS(S) Returned 10/18/2015 12:00 AM OB US LIMITED FETUS(S) Reviewed 05/24/2009 12:00 AM OBSTETRIC PANEL Reviewed [...] Value 0.0240 ug/mLAFP MoM 1.02 hCG Value 58563.0 mIU/ mLhCG MoM 1.77 uE3 Value 0.70 ng/mLuE3 MoM 1.16 CARRIE Value 207.520 pg/mLDIA MoM 1.25 OSBR [place] 1 [place] [address] DSR (Second Trimester) 1IN 4435 DSR (By [...] 10/09/2010 [employer] MSD GARDASIL [id number] Intramuscular Left Deltoid 10/09/2010 06/12/2010 62 Tdap 09/04/2015 [employer] SKB BOOSTRIX [id number] Intramuscular Right Deltoid 09/04/2015 [...] Examination Following Surgery Oct 29 2015 9:26AM Post- Follow-Up Dec 03 2015 10:46AM Payers Insurance Name Company Name Plan Name Plan Number Policy Number Policy Group Number Start Date [facility] - RHC - Community Plan [facility] RHC Comm [id number] N/A [facility] Community Plan [facility] Comm Plan of [id number] Monday, 2015 [place] Medical Assistance Program [place] Prog [id number] N/A zzzTest Medicare A Test Medicare A void N/A History of Encounters Visit Date Visit Type Provider 12/03/2015 Office visit 12/03/[address] Ana Melara MD 10/29/[address] Ana Melara MD 10/22/2015 [facility] Marni Dorado APRN 10/22/[address] [facility] [address] Ana Melara MD 10/17/2015 Office [...] MD 02/21/2015 Office visit Marni MarcellusMillicent Dorado RUBBER GOODS INSPECTOR 05/05/2011 Office visit Dalia Mariano RUBBER GOODS INSPECTOR 03/03/2011 Office visit Dalia Mariano RUBBER GOODS INSPECTOR 02/17/2011 Office visit Dalia Mariano RUBBER GOODS INSPECTOR 02/11/2011 Office visit Dalia Mariano RUBBER GOODS INSPECTOR 10/09/2010 Nurse visit Dalia Mariano RUBBER GOODS INSPECTOR 08/28/2010 Nurse visit Dalia Mariano RUBBER GOODS INSPECTOR 08/23/2010 Office visit Dalia Mariano RUBBER GOODS INSPECTOR 07/30/2010 Office visit Dalia Mariano RUBBER GOODS INSPECTOR 01/23/2010 Office visit Marga Fung MD 01/14/2010 Surgery Marga Fung MD 12/25/2009 Hospital Marga Fung MD 12/24/2009 Office visit Marga Fung MD 12/24/2009 [facility] Marga Fung MD 12/20/2009 Office visit Marga Fung MD 12/13/2009 Office visit Marga Fung MD 12/06/2009 Office visit Marga Fung MD 11/29/2009 Office visit Marga Fung MD 11/22/2009 Office visit Marga Fung MD 11/17/2009 [facility] Marga Fung MD 11/15/2009 Office visit [...]
--- OUTSIDE RECORDS SUMMARY | 2018-01-07 14:49 | XMS REPORT ---
Author Author Ana Melara [facility] Address [address] [place], [place] [id number] Care Team Providers Care Administrative Services Assistant Name Role Phone Ana Melara PCP Unavailable [...] 10/09/2010 [employer] MSD GARDASIL [id number] Intramuscular Left Deltoid 10/09/2010 06/12/2010 62 History [...] Policy Number Policy Group Number Start Date [place] [facility] Prog [id number] N/A [facility] [place] [facility] N/A History of Encounters Visit Date Visit Type Provider 04/05/[address] Ana Melara MD 03/08/[address] Ana Melara MD 02/21/2015 Office visit Marni Dorado AGATE SETTER 05/05/2011 Office visit Dalia Mariano AGATE SETTER 03/03/2011 Office visit Dalia Mariano AGATE SETTER 02/17/2011 Office visit Dalia Mariano AGATE SETTER 02/11/2011 Office visit Dalia Mariano AGATE SETTER 10/09/2010 Nurse visit Dalia Mariano AGATE SETTER 08/28/2010 Nurse visit Dalia Mariano AGATE SETTER 08/23/2010 Office visit Dalia Mariano AGATE SETTER 07/30/2010 Office visit Dalia Mariano AGATE SETTER 01/23/2010 Office visit Marga Fung MD 01/14/2010 Surgery Marga Fung MD 12/25/2009 [facility] Marga Fung MD 12/24/2009 Office visit Marga Fung MD 12/24/2009 [facility] Marga Fung MD 12/20/2009 Office visit Marga Fung MD 12/13/2009 Office visit Marga Fung MD 12/06/2009 Office visit Marga Fung MD 11/29/2009 Office visit Marga Fung MD 11/22/2009 Office visit Marga Fung MD 11/17/2009 [facility] Marga Fung MD 11/15/2009 Office [...]
--- OUTSIDE RECORDS SUMMARY | 2018-01-07 14:49 | XMS REPORT ---
Author Author Ana Melara [facility] Address [address] [place], [place] [phone] Care Team Providers Care Director Index Name Role Phone Ana Melara PCP Unavailable [...] 10/09/2010 [employer] MSD GARDASIL [id number] Intramuscular Left Deltoid 10/09/2010 06/12/2010 62 History [...] Policy Number Policy Group Number Start Date [place] Medical [place] [facility] Prog [id number] [facility] History of Encounters Visit Date Visit Type Provider 04/05/[address] Ana Melara MD 03/08/[address] Ana Melara MD 02/21/2015 Office visit Marni Dorado MEAT SPECIALIST 05/05/2011 Office visit Dalia Mariano MEAT SPECIALIST 03/03/2011 Office visit Dalia Mariano MEAT SPECIALIST 02/17/2011 Office visit Dalia Mariano MEAT SPECIALIST 02/11/2011 Office visit Dalia Mariano MEAT SPECIALIST 10/09/2010 Nurse visit Dalia Mariano MEAT SPECIALIST 08/28/2010 Nurse visit Dalia Mariano MEAT SPECIALIST 08/23/2010 Office visit Dalia Mariano MEAT SPECIALIST 07/30/2010 Office visit Dalia Mariano MEAT SPECIALIST 01/23/2010 Office visit Marga Fung MD 01/14/2010 Surgery Marga Fung MD 12/25/2009 [facility] Marga Fung MD 12/24/2009 Office visit Marga Fung MD 12/24/2009 [facility] Marga Fung MD 12/20/2009 Office visit Marga Fung MD 12/13/2009 Office visit Marga Fung MD 12/06/2009 Office visit Marga Fung MD 11/29/2009 Office visit Marga Fung MD 11/22/2009 Office visit Marga Fung MD 11/17/2009 [facility] Marga Fung MD 11/15/2009 Office [...]
--- OUTSIDE RECORDS SUMMARY | 2018-01-07 14:50 | XMS REPORT ---
Author Author Ana Melara [facility] Address [address] [place], [place] [address] Care Team Providers Care Publication Manager Name Role Phone Ana Melara PCP [...] oral route every 6 hours as needed [place] 5-325 mg oral tablet 10/29/2015 12/03/2015 take [...] Value 0.0240 ug/mLAFP MoM 1.02 hCG Value 42230.0 mIU/ mLhCG MoM 1.77 uE3 Value 0.70 ng/mLuE3 MoM 1.16 CARRIE Value 207.520 pg/mLDIA MoM 1.25 OSBR [place] 1 [place] [address] DSR (Second Trimester) 1IN 4435 DSR (By [...] 10/09/2010 [employer] MSD GARDASIL [id number] Intramuscular Left Deltoid 10/09/2010 06/12/2010 62 Tdap 09/04/2015 [employer] SKB BOOSTRIX [id number] Intramuscular Right Deltoid 09/04/2015 [...] Policy Number Policy Group Number Start Date [facility] - RHC - Community Plan [facility] RHC Comm [id number] N/A [facility] Community Plan [facility] Comm Plan of [id number] Monday, 2015 [place] Medical Assistance Program [place] Prog [id number] N/A zzzTest Medicare A Test Medicare A void N/A History of Encounters Visit Date Visit Type Provider 12/03/[address] Ana Melara MD 10/29/[address] Ana Melara MD 10/22/2015 [facility] Marni Dorado VICE PRESIDENT QUALITY ASSURANCE 10/22/[address] [facility] [address] Ana Melara MD 10/17/2015 Office visit [...] Melara MD 02/21/2015 Office visit Marni Dorado VICE PRESIDENT QUALITY ASSURANCE 05/05/2011 Office visit Dalia Mariano VICE PRESIDENT QUALITY ASSURANCE 03/03/2011 Office visit Dalia Mariano VICE PRESIDENT QUALITY ASSURANCE 02/17/2011 Office visit Dalia Mariano VICE PRESIDENT QUALITY ASSURANCE 02/11/2011 Office visit Dalia Mariano VICE PRESIDENT QUALITY ASSURANCE 10/09/2010 Nurse visit Dalia Mariano VICE PRESIDENT QUALITY ASSURANCE 08/28/2010 Nurse visit Dalia Mariano VICE PRESIDENT QUALITY ASSURANCE 08/23/2010 Office visit Dalia Mariano VICE PRESIDENT QUALITY ASSURANCE 07/30/2010 Office visit Dalia Mariano VICE PRESIDENT QUALITY ASSURANCE 01/23/2010 Office visit Marga Fung MD 01/14/2010 [...]
--- OUTSIDE RECORDS SUMMARY | 2018-01-07 14:50 | XMS REPORT ---
Author Author Ana Melara [facility] Address [address] [place], [place] [phone] Care Team Providers Care Test Engineering Manager Name Role Phone Ana Melara PCP [...] Value 0.0240 ug/mLAFP MoM 1.02 hCG Value 29214.0 mIU/ mLhCG MoM 1.77 uE3 Value 0.70 ng/mLuE3 MoM 1.16 CARRIE Value 207.520 pg/mLDIA MoM 1.25 OSBR [place] 1 [place] [address] DSR (Second Trimester) 1IN 4435 DSR (By [...] 10/09/2010 [employer] MSD GARDASIL [id number] Intramuscular Left Deltoid 10/09/2010 06/12/2010 62 Tdap 09/04/2015 [employer] SKB BOOSTRIX [id number] Intramuscular Right Deltoid 09/04/2015 [...] Policy Number Policy Group Number Start Date [facility] Plan of [facility] Comm [id number] N/A [place] [facility] [place] Prog [id number] N/A zzzTest Medicare A Test Medicare A [...] MD 02/21/2015 Office visit Marni MarcellusMillicent Dorado MIX HOUSE TENDER 05/05/2011 Office visit Dalia Mariano MIX HOUSE TENDER 03/03/2011 Office visit Dalia Mariano MIX HOUSE TENDER 02/17/2011 Office visit Dalia Mariano MIX HOUSE TENDER 02/11/2011 Office visit Dalia Mariano MIX HOUSE TENDER 10/09/2010 Nurse visit Dalia Mariano MIX HOUSE TENDER 08/28/2010 Nurse visit Dalia Mariano MIX HOUSE TENDER 08/23/2010 Office visit Dalia Mariano MIX HOUSE TENDER 07/30/2010 Office visit Dalia Mariano MIX HOUSE TENDER 01/23/2010 Office visit Marga Fung MD 01/14/2010 Surgery Marga Fung MD 12/25/2009 Hospital Marga Fung MD 12/24/2009 Office visit Marga Fung MD 12/24/2009 [facility] Marga Fung MD 12/20/2009 Office visit Marga Fung MD 12/13/2009 Office visit Marga Fung MD 12/06/2009 Office visit Marga Fung MD 11/29/2009 Office visit Marga Fung MD 11/22/2009 Office visit Marga Fung MD 11/17/2009 [facility] Marga Fung MD 11/15/2009 Office visit [...]
--- OUTSIDE RECORDS SUMMARY | 2018-01-07 14:51 | XMS REPORT ---
Author Author Ana Melara [facility] Address [address] [place], [place] [address] Care Team Providers Care Channel Marketing Program Manager Name Role Phone Ana Melara PCP [...] Value 0.0240 ug/mLAFP MoM 1.02 hCG Value 60275.0 mIU/ mLhCG MoM 1.77 uE3 Value 0.70 ng/mLuE3 MoM 1.16 CARRIE Value 207.520 pg/mLDIA MoM 1.25 OSBR [place] 1 [place] [address] DSR (Second Trimester) 1IN 4435 DSR (By Age) 1 IN 1003 T18 Risk Not increased T18 (By Age) 1:3907 History Of Immunizations Name Date Admin Mfg Name Mfg Code Trade Name Lot# Route Inj Vis Given Vis Pub CVX HPV 08/28/2010 [employer] Co[employer] MSD GARDASIL [id number] Intramuscular Left Deltoid 08/28/2010 03/13/2006 999 HPV 10/09/2010 [employer] MSD GARDASIL [id number] Intramuscular Left Deltoid 10/09/2010 06/12/2010 62 History [...] Policy Number Policy Group Number Start Date [facility] Comm [id number] N/A [place] Medical [place] Program [place] Prog [id number] N/A zzzTest Medicare A Test Medicare A void N/A History of Encounters Visit Date Visit Type Provider 06/05/[address] Ana Melara MD 05/07/[address] Ana Melara MD 04/05/[address] Ana Melara MD 03/08/[address] Ana Melara MD 02/21/2015 Office visit Marni Dorado BULL BUCKER 05/05/2011 Office visit Dalia Mariano BULL BUCKER 03/03/2011 Office visit Dalia Mariano BULL BUCKER 02/17/2011 Office visit Dalia Mariano BULL BUCKER 02/11/2011 Office visit Dalia Mariano BULL BUCKER 10/09/2010 Nurse visit Dalia Mariano BULL BUCKER 08/28/2010 Nurse visit Dalia Mariano BULL BUCKER 08/23/2010 Office visit Dalia Mariano BULL BUCKER 07/30/2010 Office visit Dalia Mariano BULL BUCKER 01/23/2010 Office visit Marga Fung MD 01/14/2010 Surgery Marga Fung MD 12/25/2009 [facility] Marga Fung MD 12/24/2009 Office [...]
--- OUTSIDE RECORDS SUMMARY | 2018-01-07 14:51 | XMS REPORT ---
Author Author Ericka Donnelly [facility] Address [address] [place], [place] [address] Care Team Providers Care Farmworker [employer] Name Role Phone Ericka Donnelly PCP Unavailable [...] Value 0.0240 ug/mLAFP MoM 1.02 hCG Value 48313.0 mIU/ mLhCG MoM 1.77 uE3 Value 0.70 ng/mLuE3 MoM 1.16 CARRIE Value 207.520 pg/mLDIA MoM 1.25 OSBR [place] 1 [place] [address] DSR (Second Trimester) 1IN 4435 DSR (By [...] 10/09/2010 [employer] MSD GARDASIL [id number] Intramuscular Left Deltoid 10/09/2010 06/12/2010 62 Tdap 09/04/2015 [employer] SKB BOOSTRIX [id number] Intramuscular Right Deltoid 09/04/2015 [...] 4:50PM Third trimester Oct 17 2015 3:20PM Payers Insurance Name Company Name Plan Name Plan Number Policy Number Policy Group Number Start Date [facility] Plan [facility] Comm [id number] N/A [place] [employer] Assistance [facility] Prog [id number] N/A zzzTest Medicare A Test Medicare A [...] Melara MD 02/21/2015 Office visit Marni Dorado YOGHURT MAKER 05/05/2011 Office visit Dalia Mariano YOGHURT MAKER 03/03/2011 Office visit Dalai Mariano YOGHURT MAKER 02/17/2011 Office visit Dalia Mariano YOGHURT MAKER 02/11/2011 Office visit Dalia Mariano YOGHURT MAKER 10/09/2010 Nurse visit Dalia Walker YOGHURT MAKER 08/28/2010 Nurse visit Dalia Mariano YOGHURT MAKER 08/23/2010 Office visit Dalia Mariano YOGHURT MAKER 07/30/2010 Office visit Dalia Mariano YOGHURT MAKER 01/23/2010 Office visit Marga Fung MD 01/14/2010 Surgery Marga Fung MD 12/25/2009 [facility] Marga Fung MD 12/24/2009 Office visit Marga Fung MD 12/24/2009 [facility] Marga Fung MD 12/20/2009 Office visit Marga Fung MD 12/13/2009 Office visit Marga Fung MD 12/06/2009 Office visit Marga Fung MD 11/29/2009 Office visit Marga Fung MD 11/22/2009 Office visit Marga Fung MD 11/17/2009 [facility] Marga Fung MD 11/15/2009 Office visit Marga [...]
--- OUTSIDE RECORDS SUMMARY | 2018-01-07 14:52 | XMS REPORT ---
Author Author Ana Melara [facility] Address [address] [place], [place] [address] Care Team Providers Care Research Associate Policy Name Role Phone Ana Melara PCP Unavailable [...] 10/09/2010 [employer] MSD GARDASIL [id number] Intramuscular Left Deltoid 10/09/2010 06/12/2010 62 History [...] Policy Number Policy Group Number Start Date [facility] Comm [id number] N/A [place] Medical [place] Program [place] Prog [id number] N/A zzzTest Medicare A Test Medicare A void N/A History of Encounters Visit Date Visit Type Provider 05/07/[address] Ana Melara MD 04/05/[address] Ana Melara MD 03/08/[address] Ana Melara MD 02/21/2015 Office visit Marni Dorado BUSINESS DEVELOPMENT ASSISTANT 05/05/2011 Office visit Dalia Mariano BUSINESS DEVELOPMENT ASSISTANT 03/03/2011 Office visit Dalia Mariano BUSINESS DEVELOPMENT ASSISTANT 02/17/2011 Office visit Dalia Mariano BUSINESS DEVELOPMENT ASSISTANT 02/11/2011 Office visit Dalia Mariano BUSINESS DEVELOPMENT ASSISTANT 10/09/2010 Nurse visit Dalia Mariano BUSINESS DEVELOPMENT ASSISTANT 08/28/2010 Nurse visit Dalia Mariano BUSINESS DEVELOPMENT ASSISTANT 08/23/2010 Office visit Dalia Mariano BUSINESS DEVELOPMENT ASSISTANT 07/30/2010 Office visit Dalia Mariano BUSINESS DEVELOPMENT ASSISTANT 01/23/2010 Office visit Marga Fung MD 01/14/2010 [...]
--- OUTSIDE RECORDS SUMMARY | 2018-01-07 14:52 | XMS REPORT ---
Author Author Marni Dorado [facility] Address [address] [place], [place] [phone] Care Team Providers Care Law Firm Administrator Name Role Phone Marni Dorado PCP Unavailable [...] C/V THIN LAYER Returned 02/22/2015 12:00 AM N.GONORRHOEAE DNA AMP PROB [...] 10/09/2010 [employer] MSD GARDASIL [id number] Intramuscular Left Deltoid 10/09/2010 06/12/2010 62 History [...] Date [place] Medical [place] Program [place] Medical [place] Prog [id number] N/[facility] [facility] [place] N/A History of Encounters Visit Date Visit Type Provider 02/21/2015 Office visit Marni Dorado CHILDREN'S MINISTRIES DIRECTOR 05/05/2011 Office visit Dalia Mariano CHILDREN'S MINISTRIES DIRECTOR 03/03/2011 Office visit Dalia Mariano CHILDREN'S MINISTRIES DIRECTOR 02/17/2011 Office visit Dalia Mariano CHILDREN'S MINISTRIES DIRECTOR 02/11/2011 Office visit Dalia Mariano CHILDREN'S MINISTRIES DIRECTOR 10/09/2010 Nurse visit Dalia Mariano CHILDREN'S MINISTRIES DIRECTOR 08/28/2010 Nurse visit Dalia Mariano CHILDREN'S MINISTRIES DIRECTOR 08/23/2010 Office visit Dalia Mariano CHILDREN'S MINISTRIES DIRECTOR 07/30/2010 Office visit Dalia Mariano CHILDREN'S MINISTRIES DIRECTOR 01/23/2010 Office visit Marga Fung MD 01/14/2010 Surgery Marga Fung MD 12/25/2009 Hospital Marga Fung MD 12/24/2009 Office visit Marga Fung MD 12/24/2009 [facility] Marga Fung MD 12/20/2009 Office visit Marga Fung MD 12/13/2009 Office visit Marga Fung MD 12/06/2009 Office visit Marga Fung MD 11/29/2009 Office visit Marga Fung MD 11/22/2009 Office visit Marga Fung MD 11/17/2009 [facility] Marga Fung MD 11/15/2009 Office visit [...]
--- OUTSIDE RECORDS SUMMARY | 2018-01-07 14:53 | XMS REPORT ---
Author Author Marni Dorado [facility] Address [address] [place], [place] [address] Care Team Providers Care Ruby On Rails Web Developer Name Role Phone Marni Dorado PCP Unavailable [...] 10/09/2010 [employer] MSD GARDASIL [id number] Intramuscular Left Deltoid 10/09/2010 06/12/2010 62 History [...] Policy Number Policy Group Number Start Date [place] Medical Assistance [facility] Prog [id number] N/A [facility] N/A History of Encounters Visit Date Visit Type Provider 02/21/2015 Office visit Marni Dorado TRANSFER IRON OPERATOR 05/05/2011 Office visit Dalia Mariano TRANSFER IRON OPERATOR 03/03/2011 Office visit Dalia Mariano TRANSFER IRON OPERATOR 02/17/2011 Office visit Dalia Mariano TRANSFER IRON OPERATOR 02/11/2011 Office visit Dalia Mariano TRANSFER IRON OPERATOR 10/09/2010 Nurse visit Dalia Mariano TRANSFER IRON OPERATOR 08/28/2010 Nurse visit Dalia Mariano TRANSFER IRON OPERATOR 08/23/2010 Office visit Dalia Mariano TRANSFER IRON OPERATOR 07/30/2010 Office visit Dalia Mariano TRANSFER IRON OPERATOR 01/23/2010 Office visit Marga Fung MD 01/14/2010 [...]
--- OUTSIDE RECORDS SUMMARY | 2018-01-07 14:54 | XMS REPORT ---
Author Author Ana Melara [facility] Address [address] [place], [place] [address] Care Team Providers Care Ems Educator Name Role Phone Ana Melara PCP Unavailable [...] NEGATIVE History Of Immunizations Name Date Admin [facility] Name [facility] Code Trade Name Lot# Route Inj Vis Given Vis Pub CVX HPV 08/28/2010 [employer] MSD GARDASIL [id number] Intramuscular Left Deltoid 08/28/2010 03/13/2006 999 HPV 10/09/2010 [employer] MSD GARDASIL [id number] Intramuscular Left Deltoid 10/09/2010 06/12/2010 62 History [...] Policy Group Number Start Date [facility] - [facility] Comm [id number] N/A [place] Medical [place] Program [place] Medical Assistance Prog [id number] N/A zzzTest Medicare A Test Medicare A void N/A History of Encounters Visit Date Visit Type Provider 05/07/[address] Ana Melara MD 04/05/[address] Ana Melara MD 03/08/[address] Ana Melara MD 02/21/2015 Office visit Marni Dorado CARBURIZING FURNACE OPERATOR 05/05/2011 Office visit Dalia Mariano CARBURIZING FURNACE OPERATOR 03/03/2011 Office visit Dalia Mariano CARBURIZING FURNACE OPERATOR 02/17/2011 Office visit Dalia Mariano CARBURIZING FURNACE OPERATOR 02/11/2011 Office visit Dalia Mariano CARBURIZING FURNACE OPERATOR 10/09/2010 Nurse visit Dalia Mariano CARBURIZING FURNACE OPERATOR 08/28/2010 Nurse visit Dalia Mariano CARBURIZING FURNACE OPERATOR 08/23/2010 Office visit Dalia Mariano CARBURIZING FURNACE OPERATOR 07/30/2010 Office visit Dalia Mariano CARBURIZING FURNACE OPERATOR 01/23/2010 Office visit Marga Fung MD 01/14/2010 Surgery Mraga Fung MD 12/25/2009 [facility] Marga Fung MD 12/24/2009 Office visit Marga Fung MD 12/24/2009 [facility] Marga Fung MD 12/20/2009 Office visit Marga Fung MD 12/13/2009 Office visit Marga Fung MD 12/06/2009 Office visit Marga Fung MD 11/29/2009 Office visit Marga Fung MD 11/22/2009 Office visit Marga Fung MD 11/17/2009 [facility] Marga Fung MD 11/15/2009 Office [...]
--- OUTSIDE RECORDS SUMMARY | 2018-01-07 14:55 | XMS REPORT | Continuity of Care Document ---
Author Author [facility] Organization [facility] Address [facility] [address] [address] Phone Unavailable Support Name Relationship Address Phone MARLI HUANG MD Caregiver [address] [place] [address] Unavailable NEIL HARMON Next Of Kin [address] [address] Insurance Providers Payer Name Policy Number Subscriber Name Relationship [place] [id number] Debbie Harmon 18 Self / Same As Patient Advance Directives Directive Response Recorded Date/Time Advance Directives No 03/31/14 7:18am Living Will No 03/31/14 7:18am Health Care Proxy No 08/12/14 1:25pm Power of Set Up Technician for Health Care No 03/31/14 7:18am Who is designated as your agent/rep. to act on your behalf? PT 04/02/14 10: 14am Organ, Tissue, or Eye Donor No 03/31/14 7:17am Do you have a signed organ donor card? No 03/31/14 7:17am Chief Complaint and Reason for Visit Chief Complaint ABDOMINAL PAIN Reason for Visit [id number] Problems Active Problems Medical Problem Onset Date Status Renal stone Unknown Acute Spontaneous Unknown Acute Spontaneous Unknown Acute Spontaneous Unknown Acute UTI (lower urinary tract infection) Unknown Acute Medications Current Home Medications Medication Dose Units Route Directions Days/Qty Instructions Start Date Folic Acid 1 Mg 1 Mg Oral Daily 03/31/14 Pnv With Ca,No.74/Iron/Fa 1 Each 1 Each Oral 03/31/14 Cephalexin Monohydrate 500 Mg 1,000 Mg Oral Twice A Day 40 03/31/14 Acetaminophen/ Codeine #3 Tab* 1 Tab 1 Ea Oral Every 6 Hrs As Needed For Pain for Pain 15 04/02/14 Acetaminophen/Hydrocodone Bitart (Lortab 5-325*) 1 Tab 1 Each Oral Every 4- 6 Hrs As Needed Pain as needed for Pain 08/12/14 Tamsulosin Hcl 0.4 Mg 0.4 Mg Oral Daily 08/12/14 Ondansetron* 4 Mg/Tab 4 Mg Oral Every 4-6 Hours As Needed as needed for Nausea 08/12/14 Social History Social History Problem Response Recorded Date/Time Smoking Status Never smoker 03/31/2014 8:06am Query Response Start Date Stop Date Smoking Status Never smoker Hospital Discharge Instructions No hospital discharge instructions. Plan of Care Discharge Date 08/12/14 5:32pm Condition at Discharge Stable Instructions/Education Provided Kidney Stones (ED) Prescriptions See Medication Section Referrals BR[facility]PO - Functional Status No functional status results. Allergies, Adverse Reactions, Alerts No known allergies. Immunizations Name Given Type Hx Diphtheria, Pertussis, Tetanus Vaccination Unknown Historical Hx Influenza Vaccination Y 2013 Historical Hx Pneumococcal Vaccination No Historical Vital Signs Acute Vital Signs Vital Response Date/Time Pain Location Body Site Modifier Upper 08/12/2014 4:50pm Results Laboratory Results Test Name Result Units Flags Reference Collection Date/Time Result Date/ Time Comments White Blood Count 11.1 K/uL H 4.8-10.8 08/12/2014 1:50pm 08/12/2014 2: 28pm Red Blood Count 4.92 M/uL 4.20-5.40 08/12/2014 1:50pm 08/12/2014 2: 28pm Hemoglobin 13.4 gm/dL 12.0-16.0 08/12/2014 1:50pm 08/12/2014 2:28pm Hematocrit 41.1 % 37.0-47.0 08/12/2014 1:5008/12/2014 2:28pm Mean Corpuscular Volume 83.7 fL 81.0-99.0 08/12/2014 1:50pm 08/12/2014 2:28pm Mean Corpuscular Hemoglobin 27.3 pg 27.0-31.0 08/12/2014 1:50pm 2014 2:28pm Mean Corpuscular Hemoglobin Concent 32.7 g/dL 30.0-37.0 08/12/2014 1: 50pm 08/12/2014 2:28pm Red Cell Distribution Width 15.1 % H 11.5-14.5 08/12/2014 1:50pm 2014 2:28pm Platelet Count 282 K/uL 130-400 08/12/2014 1:50pm 08/12/2014 2:28pm Mean Platelet Volume 9.7 fL 7.4-10.4 08/12/2014 1:50pm 08/12/2014 2: 28pm Neutrophils (%) (Auto) 74.5 % 42.2-75.2 08/12/2014 1:50pm 08/12/2014 2: 28pm Lymphocytes (%) (Auto) 18.9 % L 20.5-51.1 08/12/2014 1:50pm 08/12/2014 2 :28pm Monocytes (%) (Auto) 5.2 % 1.7-9.3 08/12/2014 1:50pm 08/12/2014 2:28pm Eosinophils (%) (Auto) 0.7 % 0-3 08/12/2014 1:50pm 08/12/2014 2:28pm Basophils (%) (Auto) 0.7 % 0.0-1.0 08/12/2014 1:50pm 08/12/2014 2:28pm Neutrophils # (Auto) 8.3 K/uL H 2.0-6.9 08/12/2014 1:50pm 08/12/2014 2: 28pm Lymphocytes # (Auto) 2.1 K/uL 1.2-3.4 08/12/2014 1:50pm 08/12/2014 2: 28pm Monocytes # (Auto) 0.6 K/uL 0.1-0.6 08/12/2014 1:50pm 08/12/2014 2: 28pm Eosinophils # (Auto) 0.1 K/uL 0.0-0.7 08/12/2014 1:50pm 08/12/2014 2: 28pm Basophils # (Auto) 0.1 K/uL 0.0-0.2 08/12/2014 1:50pm 08/12/2014 2: 28pm Random Glucose 94 mg/dL 70-110 08/12/2014 2:35pm 08/12/2014 3:11pm Blood Urea Nitrogen 16 mg/dL 7-18 08/12/2014 2:35pm 08/12/2014 3:11pm Creatinine 1.2 mg/dL H 0.6-1.0 08/12/2014 2:3508/12/2014 3:11pm Sodium Level 141 mEq/L 136-145 08/12/2014 2:3508/12/2014 3:11pm Potassium Level 3.5 mEq/L 3.5-5.0 08/12/2014 2:3508/12/2014 3:11pm Chloride Level 107 mEq/L 98-107 08/12/2014 2:3508/12/2014 3:11pm Carbon Dioxide Level 20.8 mEq/L L 21-32 08/12/2014 2:3508/12/2014 3: 11pm Calcium Level 7.9 mg/dL L 8.8-10.5 08/12/2014 2:3508/12/2014 3:11pm Total Protein 6.7 gm/dL 6.4-8.2 08/12/2014 2:3508/12/2014 3:11pm Albumin 3.6 gm/dL 3.4-5.0 08/12/2014 2:3508/12/2014 3:11pm Total Bilirubin 0.70 mg/dL 0.00-1.00 08/12/2014 2:3508/12/2014 3: 11pm Aspartate Amino Transf (AST/SGOT) 11 U/L L 15-37 08/12/2014 2:35pm 08/12 3:11pm Alanine Aminotransferase (ALT/SGPT) 15 U/L 12-78 08/12/2014 2:3505/2014 3:11pm Total Alkaline Phosphatase 68 U/L 46-116 08/12/2014 2:08/12/2014 3 :11pm Urine Color YELLOW YELLOW 08/12/2014 3:1508/12/2014 3:32pm Urine Appearance CLEAR CLEAR 08/12/2014 3:1508/12/2014 3:32pm Urine Glucose (UA) NEGATIVE mg/dL NEGATIVE 08/12/2014 3:152014 3:32pm Urine Bilirubin NEGATIVE NEGATIVE 08/12/2014 3:08/12/2014 3: 32pm Urine Ketones 1+ (15 mg/dl) mg/dL H NEGATIVE 08/12/2014 3:152014 3:32pm Urine Specific [place] >=1.030 H 1.010-1.025 08/12/2014 3:15pm 2014 3:32pm Urine Occult Blood 3+ (Large) H NEGATIVE 08/12/2014 3:15pm 08/12/2014 3:32pm URINE CULTURE ORDERED PER MEDICAL STAFF-APPROVED PROTOCOL FOR LAB. Urine pH 5.5 5.0-8.0 08/12/2014 3:15pm 08/12/2014 3:32pm Urine Protein TRACE mg/dL H NEGATIVE 08/12/2014 3:15pm 08/12/2014 3: 32pm Urine Urobilinogen 0.2 mg/dL E.U./dL 0.2-1.0 08/12/2014 3:15pm 2014 3:32pm Urine Nitrate NEGATIVE NEGATIVE 08/12/2014 3:15pm 08/12/2014 3:32pm Urine Leukocyte Esterase TRACE H NEGATIVE 08/12/2014 3:15pm 2014 3:32pm Urine RBC 10-15 /hpf H 0 08/12/2014 3:15pm 08/12/2014 3:40pm Urine WBC 1-2 /hpf 0-4 08/12/2014 3:15pm 08/12/2014 3:40pm Urine Squamous Epithelial Cells TOO NUMEROUS TO CNT /hpf 0-1 08/12/2014 3:15pm 08/12/2014 3:40pm Urine Bacteria TRACE NEGATIVE 08/12/2014 3:15pm 08/12/2014 3:40pm Human Chorionic Gonadotropin, Qual NEGATIVE NEG 08/12/2014 1:50pm 05/2014 3:02pm Glomerular Filtration Rate Calc 58.7 mL/min 08/12/2014 2:35pm 2014 3:11pm Procedures Procedure Status Date Provider(s) Computed tomography of abdomen and pelvis with contrast Completed 08/12/14 MARLI HUANG MD Encounters Encounter Location Arrival/Admit Date Discharge/Depart Date Attending Provider Departed Emergency Room [place] 08/12/14 1:26pm 08/12/14 5:32pm MARLI HUANG MD Recent Diagnosis
--- OUTSIDE RECORDS SUMMARY | 2018-01-07 14:55 | XMS REPORT | Continuity of Care Document ---
Author Author [facility] Organization [facility] Address Unknown Phone Unavailable Allergies Active Description Code Type Severity Reaction Onset Reported/Identified Relationship to Patient Clinical Status Yes NKDA N/A N/A Yes No Known Medication Allergies NKMA N/A N/A Yes No Known Drug Allergies [id number] Drug Allergy Unknown N/A 06/28/2017 Medications Medication Packaging Start Date Stop Date Route Dosage Sig MELOXICAM 01/15/2016 ORAL 7 daily Problems Date Dx Coded Attending Type Code Diagnosis Diagnosed By 07/19/2015 Emerson Haynes O34.21 Maternal care for scar from previous delivery 07/19/2015 Emerson Haynes Final Z82.49 Family history of ischemic heart disease and other diseases of the circulatory system 06/28/2017 CAROLINA LIU MD Ot N20.1 CALCULUS OF URETER 06/28/2017 CAROLINA LIU MD Ot R10.31 RIGHT LOWER QUADRANT PAIN 06/28/2017 CAROLINA LIU MD Ot Z87.59 PERSONAL HISTORY OF COMP OF PREG, CHLDBR 06/30/2017 CAROLINA LIU MD, Ot N20.1 CALCULUS OF URETER 06/30/2017 CAROLINA LIU MD Ot R10.31 RIGHT LOWER QUADRANT PAIN 06/30/2017 CAROLINA LIU MD, Ot Z87.59 PERSONAL HISTORY OF COMP OF PREG, CHLDBR Procedures Code Description [place] [address] Office or other outpatient visit for the evaluation and management of a new patient, which requires these 3 richard components: A problem focused history; A problem focused examination; Straightforward me 07/19/2015 Results Test Result Range Complete urinalysis with reflex to culture - 06/28/17 09:25 Urine color determination YELLOW NRG Urine clarity determination CLEAR NRG Urine pH measurement by test strip 5 5-9 Specific gravity of urine by test strip 1.030 1.016- 1.022 Urine protein assay by test strip, semi-quantitative 2+ NEGATIVE Urine glucose detection by automated test strip NEGATIVE NEGATIVE Erythrocytes detection in urine sediment by light microscopy 5+ NEGATIVE Urine ketones detection by automated test strip 4+ NEGATIVE Urine nitrite detection by test strip NEGATIVE NEGATIVE Urine total bilirubin detection by test strip 1+ NEGATIVE Urine urobilinogen measurement by automated test strip (mass/volume) NORMAL NORMAL Urine leukocyte esterase detection by dipstick 2+ NEGATIVE Automated urine sediment erythrocyte count by microscopy (number/high power field) [HPF] NRG Automated urine sediment leukocyte count by microscopy (number/high power field ) [HPF] NRG Bacteria detection in urine sediment by light microscopy MODERATE NRG Squamous epithelial cells detection in urine sediment by light microscopy 10-25 NRG Crystals detection in urine sediment by light microscopy NONE NRG Casts detection in urine sediment by light microscopy NONE NRG Mucus detection in urine sediment by light microscopy SMALL NRG Complete urinalysis with reflex to culture NO NRG Complete blood count (CBC) with automated white blood cell (WBC) differential - 06/28/17 09:45 Blood leukocytes automated count (number/volume) 9.8 10*3/uL 4.3-11.0 Blood erythrocytes automated count (number/volume) 4.61 10*6/uL 4.35-5.85 Venous blood hemoglobin measurement (mass/volume) 13.7 g/dL 11.5-16.0 Blood hematocrit (volume fraction) 40 % 35-52 Automated erythrocyte mean corpuscular volume 87 [foz_us] 80-99 Automated erythrocyte mean corpuscular hemoglobin (mass per erythrocyte) 30 pg 25-34 Automated erythrocyte mean corpuscular hemoglobin concentration measurement ( mass/volume) 34 g/dL 32-36 Automated erythrocyte distribution width ratio 13.2 % 10.0-14.5 Automated blood platelet count (count/volume) 287 10*3/uL 130-400 Automated blood platelet mean volume measurement 9.6 [foz_us] 7.4-10.4 Automated blood neutrophils/100 leukocytes 80 % 42-75 Automated blood lymphocytes/100 leukocytes 15 % 12-44 Blood monocytes/100 leukocytes 5 % 0-12 Automated blood eosinophils/100 leukocytes 0 % 0-10 Automated blood basophils/100 leukocytes 0 % 0-10 Blood neutrophils automated count (number/volume) 7.8 10*3 1.8-7.8 Blood lymphocytes automated count (number/volume) 1.5 10*3 1.0-4.0 Blood monocytes automated count (number/volume) 0.5 10*3 0.0-1.0 Automated eosinophil count 0.0 10*3/uL 0.0-0.3 Automated blood basophil count (count/volume) 0.0 10*3/uL 0.0-0.1 Comprehensive metabolic panel - 06/28/17 10:34 Serum or plasma sodium measurement (moles/volume) 138 mmol/L 135-145 Serum or plasma potassium measurement (moles/volume) 3.7 mmol/L 3.6-5.0 Serum or plasma chloride measurement (moles/volume) 107 mmol/L 98-107 Carbon dioxide 19 mmol/L 21-32 Serum or plasma anion gap determination (moles/volume) 12 mmol/L 5-14 Serum or plasma urea nitrogen measurement (mass/volume) 12 mg/dL 7-18 Serum or plasma creatinine measurement (mass/volume) 0.71 mg/dL 0.60-1.30 Serum or plasma urea nitrogen/creatinine mass ratio 17 NRG Serum or plasma creatinine measurement with calculation of estimated glomerular filtration rate > NRG Serum or plasma glucose measurement (mass/volume) 130 mg/dL 70-105 Serum or plasma calcium measurement (mass/volume) 9.1 mg/dL 8.5-10.1 Serum or plasma total bilirubin measurement (mass/volume) 0.9 mg/dL 0.1-1.0 Serum or plasma alkaline phosphatase measurement (enzymatic activity/volume) 54 U/L 40-136 Serum or plasma aspartate aminotransferase measurement (enzymatic activity/ volume) 14 U/L 5-34 Serum or plasma alanine aminotransferase measurement (enzymatic activity/volume ) 11 U/L 0-55 Serum or plasma protein measurement (mass/volume) 7.1 g/dL 6.4-8.2 Serum or plasma albumin measurement (mass/volume) 4.0 g/dL 3.2-4.5 Encounters ACCT No. Visit Date/Time Discharge Status Pt. Type Provider Facility Loc./Unit Complaint [id number] 12/03/2015 11:05:22 12/03/2015 23:59:59 [facility] Outpatient Ana Melara [id number] 10/29/2015 09:47:08 10/29/2015 23:59:59 [facility] Outpatient Ana Melara [id number] 10/24/2015 10:17:06 10/24/2015 23:59:59 [facility] Outpatient Marni Dorado [id number] 10/24/2015 10:14:44 10/24/2015 23:59:59 [facility] Outpatient Ana Melara [id number] 10/17/2015 16:09:03 10/17/2015 23:59:59 [facility] Outpatient Ericka Henderson [id number] 10/09/2015 14:48:56 10/09/2015 23:59:59 [facility] Outpatient Ana Melara [id number] 10/02/2015 16:20:08 10/02/2015 23:59:59 [facility] Outpatient Ana Melara [id number] 09/18/2015 14:42:16 09/18/2015 23:59:59 [facility] Outpatient Ana Melara [id number] 09/04/2015 14:05:02 09/04/2015 23:59:59 [facility] Outpatient Ana Melara [id number] 08/07/2015 20:22:56 08/07/2015 23:59:59 [facility] Outpatient Ana Melraa [id number] 05/07/2015 14:32:00 05/07/2015 23:59:59 [facility] Outpatient Ana Melara [id number] 04/05/2015 09:29:10 04/05/2015 23:59:59 [facility] Outpatient Ana Melara [id number] 03/08/2015 09:41:17 03/08/2015 23:59:59 [facility] Outpatient Ana Melara [id number] 02/21/2015 12:00:02 02/21/2015 23:59:59 [facility] Outpatient Marni Dorado [id number] 06/28/2017 08:36:00 06/28/2017 12:03:00 DIS Emergency ALEXA MUÑIZ, CAROLINA Haley [facility] ER LOWER ABD PAIN [id number] 07/19/2015 16:12:00 07/19/2015 23:59:00 DIS Outpatient Emerson Haynes [facility] S Nima MFM npv echo due to maternal hx of atrial septal defect lm [id number] 01/15/2016 10:42:00 Document Registration
--- OUTSIDE RECORDS SUMMARY | 2018-01-07 14:55 | XMS REPORT ---
Author Author Ana Melara [facility] Address [address] [place], [place] [id number] Care Team Providers Care [employer] Name Role Phone Ana Melara PCP Unavailable [...] Value 0.0240 ug/mLAFP MoM 1.02 hCG Value 78197.0 mIU/ mLhCG MoM 1.77 uE3 Value 0.70 ng/mLuE3 MoM 1.16 CARRIE Value 207.520 pg/mLDIA MoM 1.25 [place] 1 [place] [address] DSR (Second Trimester) 1IN 4435 DSR (By Age) 1 IN 1003 T18 Risk Not increased T18 (By Age) 1:3907 History Of Immunizations Name Date Admin Mfg Name Mfg Code Trade Name Lot# Route Inj Vis Given Vis Pub CVX HPV 08/28/2010 [employer] MSD GARDASIL [id number] Intramuscular Left Deltoid 08/28/2010 03/13/2006 999 HPV 10/09/2010 [employer] MSD GARDASIL [id number] Intramuscular Left Deltoid 10/09/2010 06/12/2010 62 History [...] Policy Number Policy Group Number Start Date [facility] Plan [facility] Comm [id number] N/A [place] [employer] [place] Program [place] Prog [id number] N/A zzzTest Medicare A Test Medicare A void N/A History of Encounters Visit Date Visit Type Provider 08/07/[address] Ana Melara MD 06/05/[address] Ana Melara MD 05/07/[address] Ana Melara MD 04/05/[address] Ana Melara MD 03/08/[address] Ana Melara MD 02/21/2015 Office visit Marni Dorado TEST CARRIER 05/05/2011 Office visit Dalia Mariano TEST CARRIER 03/03/2011 Office visit Dalia Mariano TEST CARRIER 02/17/2011 Office visit Dalia Mariano TEST CARRIER 02/11/2011 Office visit Dalia Mariano TEST CARRIER 10/09/2010 Nurse visit Dalia Mariano TEST CARRIER 08/28/2010 Nurse visit Dalia Mariano TEST CARRIER 08/23/2010 Office visit Dalia Mariano TEST CARRIER 07/30/2010 Office visit Dalia Mariano TEST CARRIER 01/23/2010 Office visit Marga Fung MD 01/14/2010 Surgery Marga Fung MD 12/25/2009 [facility] Marga Fung MD 12/24/2009 Office visit Marga Fung MD 12/24/2009 [facility] Marga Fung MD 12/20/2009 Office visit Marga Fung MD 12/13/2009 Office visit Marga Fung MD 12/06/2009 Office visit Marga Fung MD 11/29/2009 Office visit Marga Fung MD 11/22/2009 Office visit Marga Fung MD 11/17/2009 [facility] Marga Fung MD 11/15/2009 Office [...]
--- OUTSIDE RECORDS SUMMARY | 2018-01-07 14:55 | XMS REPORT | Continuity of Care Document ---
Author Author [facility] Organization [facility] Address [facility] [address] [place] [address] Phone Unavailable Support Name Relationship Address Phone MALORIE HERNANDEZ M.D. Caregiver [address] [place] [address] GLORIA NATH MD Caregiver [address], [place] NEIL HARMON Next Of Kin [address] [address] Insurance Providers Payer Name Policy Number Subscriber Name [place] [id number] Debbie Harmon 18 Self / Same As Patient Advance Directives Directive Response Recorded Date/Time Advance Directives No 03/31/14 7:18am Living Will No 03/31/14 7:18am Health Care Proxy No 04/02/14 10:14am Power of Revenue Integrity Analyst for Health Care No 03/31/14 7:18am Who is designated as your agent/rep. to act on your behalf? PT 04/02/14 10: 14am Organ, Tissue, or Eye Donor No 03/31/14 7:17am Do you have a signed organ donor card? No 03/31/14 7:17am Problems Medical Problems Problem Onset Date Status Spontaneous Unknown Active UTI (lower urinary tract infection) Unknown Active Spontaneous Unknown Active Spontaneous Unknown Active Medications Medication Dose Route Sig Days/Qty Instructions Order Date Discontinued Date Status Folic Acid 1 Mg PO DAILY 03/31/14 Active Pnv With Ca,No.74/Iron/Fa 1 Each PO 03/31/14 Active Cephalexin Monohydrate 1,000 Mg PO TWICE A DAY 40 Qty 03/31/14 Active Acetaminophen/ Codeine #3 Tab* 1 Ea PO EVERY 6 HRS NEEDED FOR PAIN For PAIN 15 Qty 04/02/14 Active Social History Social History Problem Response Recorded Date/Time Smoking Status Never smoker 03/31/2014 8:06am Alcohol Use none 04/02/2014 11:18am Drug Use none 04/02/2014 11:18am Query Response Start Date Stop Date Smoking Status Never smoker Hospital Discharge Instructions No hospital discharge instructions. Plan of Care No plan of care. Functional Status Query Response Date Recorded Sujatha Coma Scale Total 15 April 02, 2014 12:15pm Patient Behavior Fatigued April 02, 2014 12:15pm Allergies, Adverse Reactions, Alerts Allergen Type Severity Reaction Status Last Updated NO KNOWN ALLERGIES Active 04/02/14 Immunizations Name Given Type Hx Diphtheria, Pertussis, Tetanus Vaccination Unknown Historical Hx Influenza Vaccination Y 2013 Historical Hx Pneumococcal Vaccination No Historical Vital Signs Acute Vital Signs Vital Response Date/Time Temperature (Fahrenheit) 97.7 degrees F (97.6 - 99.5) Temperature Source Temporal Artery Pulse Rate (adult) 72 bpm (60 - 90) Respiratory Rate 20 bpm (12 - 24) Blood Pressure 117/59 mm Hg Blood Pressure 116/63 mm Hg O2 Sat by Pulse Oximetry 97 % (90 - 100) Oxygen Delivery Method Pain Intensity 4 Pain Location Body Site Modifier Medial Pain Description Pain Duration 3-6 Hours Height 5 ft 4 in Weight 176 lb Body Mass Index 30.0 kg/m^2 Results Test Source Date Result Interp. Ref. Range Comments Alanine Aminotransferase (ALT/SGPT) March 31, 2014 7:55am 16 U/L N 12 -78 Albumin March 31, 2014 7:55am 3.6 gm/dL N 3.4-5.0 Aspartate Amino Transf (AST/SGOT) March 31, 2014 7:55am 13 U/L L 15- 37 Basophils # (Auto) April 02, 2014 9:55am 0.1 K/uL N 0.0-0.2 Basophils (%) (Auto) April 02, 2014 9:55am 0.8 % N 0.0-1.0 Blood Urea Nitrogen March 31, 2014 7:55am 5 mg/dL L 7-18 Calcium Level March 31, 2014 7:55am 9.0 mg/dL N 8.8-10.5 Carbon Dioxide Level March 31, 2014 7:55am 24.6 mEq/L N 21-32 Chloride Level March 31, 2014 7:55am 103 mEq/L N 98-107 Creatinine March 31, 2014 7:55am 0.6 mg/dL N 0.6-1.0 Eosinophils # (Auto) April 02, 2014 9:55am 0.1 K/uL N 0.0-0.7 Eosinophils (%) (Auto) April 02, 2014 9:55am 0.7 % N 0.0-2.0 Glomerular Filtration Rate Calc March 31, 2014 7:55am 130.5 mL/min H 60.0-128.0 HCG Beta Subunit March 31, 2014 7:55am 1353 IU/L - 9-130 mIU/ml INDICATES 3-4 WEEKS POST LMP75-2,600 mIU/ml INDICATES 4-5 WEEKS POST LMP 850-20,800 mIU/ml INDICATES 5-6 WEEKS POST LMP 4,000-100,200 mIU/ml INDICATES 6-7 WEEKS POST LMP 11,500-289,000 mIU/ml INDICATES 7-12 WEEKS POST LMP 18,000-137,000 mIU/ml INDICATES 12-16 WEEKS POST LMP 1,400-53,000 mIU/ml INDICATES 16-29 WEEKS POST LMP (2ND TRIMESTER) 940-60,000 mIU/ML INDICATES 29-41 WEEKS (3RD TRIMESTER) Hematocrit April 02, 2014 9:55am 41.8 % N 37.0-47.0 Hemoglobin April 02, 2014 9:55am 14.4 gm/dL N 12.0-16.0 Lymphocytes # (Auto) April 02, 2014 9:55am 2.9 K/uL N 1.2-3.4 Lymphocytes (%) (Auto) April 02, 2014 9:55am 20.9 % N 20.5-51.1 Mean Corpuscular Hemoglobin April 02, 2014 9:55am 29.0 pg N 27.0- 31.0 Mean Corpuscular Hemoglobin Concent April 02, 2014 9:55am 34.4 g/dL N 30.0-37.0 Mean Corpuscular Volume April 02, 2014 9:55am 84.2 fL N 81.0-99.0 Mean Platelet Volume April 02, 2014 9:55am 6.5 fL L 7.4-10.4 Monocytes # (Auto) April 02, 2014 9:55am 0.7 K/uL H 0.1-0.6 Monocytes (%) (Auto) April 02, 2014 9:55am 5.4 % N 1.7-9.3 Neutrophils # (Auto) April 02, 2014 9:55am 10.0 K/uL H 2.0-6.9 Neutrophils (%) (Auto) April 02, 2014 9:55am 72.2 % N 42.2-75.2 Platelet Count April 02, 2014 9:55am 238 K/uL N 130-400 Potassium Level March 31, 2014 7:55am 3.5 mEq/L N 3.5-5.0 Random Glucose March 31, 2014 7:55am 80 mg/dL N 70-110 Red Blood Count April 02, 2014 9:55am 4.97 M/uL N 4.20-5.40 Red Cell Distribution Width April 02, 2014 9:55am 12.3 % N 11.5-14.5 Sodium Level March 31, 2014 7:55am 140 mEq/L N 136-145 Total Alkaline Phosphatase March 31, 2014 7:55am 105 U/L N 50-136 Total Bilirubin March 31, 2014 7:55am 0.70 mg/dL N 0.00-1.00 Total Protein March 31, 2014 7:55am 8.0 gm/dL N 6.4-8.2 Urine Appearance March 31, 2014 8:39am Clear - Urine obtained via URINE, CLEAN CATCH Urine Bacteria March 31, 2014 8:39am 2+ H - A CULTURE HAS BEEN ADDED TO THIS SPECIMEN PER PROTOCOL Urine Bilirubin March 31, 2014 8:39am Negative - Urine obtained via URINE, CLEAN CATCH Urine Color March 31, 2014 8:39am Lt. yellow - Urine obtained via URINE, CLEAN CATCH Urine Glucose (UA) March 31, 2014 8:39am Negative mg/dL - Urine obtained via URINE, CLEAN CATCH Urine HCG, Qualitative March 31, 2014 8:39am Positive - Urine obtained via URINE, CLEAN CATCH Urine Ketones March 31, 2014 8:39am 1+ (15 mg/dl) mg/dL H - Urine obtained via URINE, CLEAN CATCH Urine Leukocyte Esterase March 31, 2014 8:39am 1+ (small) H - Urine obtained via URINE, CLEAN CATCH Urine Nitrate March 31, 2014 8:39am Negative - Urine obtained via URINE, CLEAN CATCH Urine Occult Blood March 31, 2014 8:39am 3+ (large) H - URINE CULTURE ORDERED PER MEDICAL STAFF-APPROVED PROTOCOLFOR LAB. Urine Protein March 31, 2014 8:39am Negative mg/dL - Urine obtained via URINE, CLEAN CATCH Urine RBC March 31, 2014 8:39am 15-19 /hpf H - Urine obtained via URINE, CLEAN CATCH Urine Specific [place] March 31, 2014 8:39am 1.020 N 1.010-1.025 Urine obtained via URINE, CLEAN CATCH Urine Sperm March 31, 2014 8:39am Few H - Urine obtained via URINE, CLEAN CATCH Urine Squamous Epithelial Cells March 31, 2014 8:39am 2-4 /hpf H - Urine obtained via URINE, CLEAN CATCH Urine Urobilinogen March 31, 2014 8:39am 1.0 mg/dl E.U./dL - Urine obtained via URINE, CLEAN CATCH Urine WBC March 31, 2014 8:39am 5-9 /hpf H - A CULTURE HAS BEEN ADDED TO THIS SPECIMEN PER PROTOCOL Urine pH March 31, 2014 8:39am 7.0 - Urine obtained via URINE, CLEAN CATCH White Blood Count April 02, 2014 9:55am 13.9 K/uL H 4.8-10.8 Wet Prep Vaginal March 31, 2014 9:06am Urine Culture Urine,Clean Catch March 31, 2014 8:39am Procedures Procedure Status Date Provider(s) Dilation and curettage of uterus using suction completed 04/02/14 MALORIE HERNANDEZ M.D. Limited obstetrical ultrasound completed 03/31/14 GENEVIEVE PERALES DO Encounters Encounter Location Date/Time Departed Emergency Room [facility] 04/02/14 10:13am Departed Emergency Room [facility] 03/31/14 7:21am Recent Diagnosis
--- OUTSIDE RECORDS SUMMARY | 2018-01-07 14:55 | XMS REPORT | Continuity of Care Document ---
Author Author [facility] Organization [facility] Address [facility] [address] [place] [id number] Phone Unavailable Support Name Relationship Address Phone EJ GRIMES MD Caregiver [address] [place] [id number] Unavailable PADILLA HARMON Next Of Kin [id number] [place], [place] [id number] Insurance Providers Payer Name Policy Number Subscriber Name Relationship [facility] [id number] Tanvir Harmon 18 Self / Same As Patient Advance Directives Directive Response Recorded Date/Time Advance Directives No 03/31/14 7:18am Living Will No 03/31/14 7:18am Health Care Proxy No 11/09/15 7:39pm Power of Stem Crusher for Health Care No 03/31/14 7:18am Who is designated as your agent/rep. to act on your behalf? PT 04/02/14 10: 14am Organ, Tissue, or Eye Donor No 03/31/14 7:17am Do you have a signed organ donor card? No 03/31/14 7:17am Chief Complaint and Reason for Visit Chief Complaint EARACHE Reason for Visit [id number] Problems Active Problems Medical Problem Onset Date Status Cellulitis of tragus of left ear Unknown Acute Nausea and vomiting during Unknown Acute Unknown Acute Renal stone Unknown Acute Spontaneous Unknown Acute Spontaneous Unknown Acute Spontaneous Unknown Acute UTI (lower urinary tract infection) Unknown Acute Medications Current Home Medications Medication Dose Units Route Directions Days/Qty Instructions Start Date Pnv With Ca,No.74/Iron/Fa 1 Each 1 Each Oral 03/31/14 Sulfamethoxazole/Trimethoprim* 1 Tab 1 Ea Oral Twice A Day 14 TAKE FOR 5 DAYS 11/09/15 Past Home Medications Medication Directions Ordered Status Folic Acid 1 Mg Tablet, 1 Mg Oral Daily 03/31/14 Discontinued Cephalexin Monohydrate 500 Mg Capsule, 1000 Mg Oral Twice A Day 03/31/14 Discontinued Acetaminophen/ Codeine #3 Tab* 1 Tab Tablet, 1 Ea Oral Every 6 Hrs As Needed For Pain for Pain 04/02/14 Discontinued Acetaminophen/Hydrocodone Bitart (Lortab 5-325*) 1 Tab Tablet, 1 Each Oral Every 4-6 Hrs As Needed Pain as needed for Pain 08/12/14 Discontinued Tamsulosin Hcl 0.4 Mg Cap.sr.24h, 0.4 Mg Oral Daily 08/12/14 Discontinued Ondansetron* 4 Mg/Tab Tab.rapdis, 4 Mg Oral Every 4-6 Hours As Needed as needed for Nausea 08/12/14 Discontinued Social History Social History Problem Response Recorded Date/Time Smoking Status Never smoker 03/31/2014 8:06am Sexual History Heterosexual 11/09/2015 8:30pm Query Response Start Date Stop Date Smoking Status Never smoker Hospital Discharge Instructions No hospital discharge instructions. Plan of Care Discharge Date 11/09/15 8:20pm Condition at Discharge Stable Instructions/Education Provided Cellulitis (ED) Prescriptions See Medication Section Functional Status Query Response Date Recorded Patient Behavior Appropriate November 09, 2015 8:00pm Allergies, Adverse Reactions, Alerts No known allergies. Immunizations Name Given Type Hx Diphtheria, Pertussis, Tetanus Vaccination Unknown Historical Hx Influenza Vaccination No Historical Hx Pneumococcal Vaccination No Historical Vital Signs Acute Vital Signs Vital Response Date/Time Temperature (Fahrenheit) 97.9 degrees F (97.6 - 99.5) 11/09/2015 8:00pm Temperature Source Temporal Artery 11/09/2015 8:00pm Pulse Rate (adult) 98 bpm (60 - 90) 11/09/2015 8:00pm Respiratory Rate 16 bpm (12 - 24) 11/09/2015 8:00pm Blood Pressure 118/76 mm Hg 11/09/2015 8:00pm O2 Sat by Pulse Oximetry 97 % (90 - 100) 11/09/2015 8:00pm Oxygen Delivery Method 11/09/2015 8:00pm Height 5 ft 4 in Weight 167 lb Body Mass Index 28.0 kg/m^2 Results No known relevant diagnostic tests, laboratory data and/or discharge summary. Procedures No known history of procedures. Encounters Encounter Location Arrival/Admit Date Discharge/Depart Date Attending Provider Departed Emergency Room [place] 11/09/15 7:42pm 11/09/15 8:20pm EJ GRIMES MD Recent Diagnosis
--- OUTSIDE RECORDS SUMMARY | 2018-01-07 14:55 | XMS REPORT | Continuity of Care Document ---
Author Author [facility] Organization [facility] Address [facility] [address] [place] [address] Phone Unavailable Support Name Relationship Address Phone GENEVIEVE PERALES DO Caregiver [address] [place] [address] NATHALIA MAYSSJENNIFER Carroll Next Of Kin [address] [address] Insurance Providers Payer Name Policy Number Subscriber Name Relationship [place] [id number] Debbie May 18 Self / Same As Patient Advance Directives Directive Response Recorded Date/Time Advance Directives No 03/31/14 7:18am Living Will No 03/31/14 7:18am Health Care Proxy No 03/31/14 7:18am Power of Customer Service Officer for Health Care No 03/31/14 7:18am Organ, Tissue, or Eye Donor No 03/31/14 7:17am Do you have a signed organ donor card? No 03/31/14 7:17am Problems Medical Problems Problem Onset Date Status Spontaneous Unknown Active UTI (lower urinary tract infection) Unknown Active Spontaneous Unknown Active Medications Medication Dose Route Sig Days/Qty Instructions Order Date Discontinued Date Status Folic Acid 1 Mg PO DAILY 03/31/14 Active Pnv With Ca,No.74/Iron/Fa 1 Each PO 03/31/14 Active Cephalexin Monohydrate 1,000 Mg PO TWICE A DAY 40 Qty 03/31/14 Active Social History Social History Problem Response Recorded Date/Time Smoking Status Never smoker 03/31/2014 8:06am Alcohol Use none 03/31/2014 8:06am Drug Use none 03/31/2014 8:06am Query Response Start Date Stop Date Smoking Status Never smoker Hospital Discharge Instructions No hospital discharge instructions. Plan of Care No plan of care. Functional Status Query Response Date Recorded [place] Coma Scale Total 15 March 31, 2014 11:00am Patient Behavior Crying March 31, 2014 11:00am Allergies, Adverse Reactions, Alerts Allergen Type Severity Reaction Status Last Updated NO KNOWN ALLERGIES Active 03/31/14 Immunizations Name Given Type Hx Diphtheria, Pertussis, Tetanus Vaccination within 10yrs Historical Hx Influenza Vaccination Y 2014 Historical Hx Pneumococcal Vaccination No Historical Vital Signs Acute Vital Signs Vital Response Date/Time Temperature (Fahrenheit) 98.2 degrees F (97.6 - 99.5) Temperature Source Temporal Artery Pulse Rate (adult) 98 bpm (60 - 90) Respiratory Rate 22 bpm (12 - 24) Blood Pressure 108/67 mm Hg O2 Sat by Pulse Oximetry 97 % (90 - 100) Oxygen Delivery Method Pain Intensity 4 Pain Location Body Site Modifier Medial Pain Description Pain Duration > 6 Hours Height 5 ft 4 in Weight 191 lb Body Mass Index 32.0 kg/m^2 Results Test Source Date Result Interp. Ref. Range Comments Urine Sperm March 31, 2014 8:39am Few H - Urine obtained via URINE, CLEAN CATCH Urine Bacteria March 31, 2014 8:39am 2+ H - A CULTURE HAS BEEN ADDED TO THIS SPECIMEN PER PROTOCOL Urine Squamous Epithelial Cells March 31, 2014 8:39am 2-4 /hpf H - Urine obtained via URINE, CLEAN CATCH Urine WBC March 31, 2014 8:39am 5-9 /hpf H - A CULTURE HAS BEEN ADDED TO THIS SPECIMEN PER PROTOCOL Urine RBC March 31, 2014 8:39am 15-19 [...] Urine obtained via URINE, CLEAN CATCH Urine Protein March 31, 2014 8:39am Negative mg/dL - Urine obtained via URINE, CLEAN CATCH Urine pH March 31, 2014 8:39am 7.0 - Urine obtained via URINE, CLEAN CATCH Urine Occult Blood March 31, 2014 8:39am 3+ (large) H - URINE CULTURE ORDERED PER MEDICAL STAFF-APPROVED PROTOCOLFOR LAB. Urine Specific [place] March 31, 2014 8:39am 1.020 N 1.010-1.025 Urine obtained via URINE, CLEAN CATCH Urine Ketones March 31, 2014 8:39am 1+ (15 mg/dl) mg/dL H - Urine obtained via URINE, CLEAN CATCH Urine Bilirubin March 31, 2014 8:39am Negative - Urine obtained via URINE, CLEAN CATCH Urine Glucose (UA) March 31, 2014 8:39am Negative mg/dL - Urine obtained via URINE, CLEAN CATCH Urine Appearance March 31, 2014 8:39am Clear - Urine obtained via URINE, CLEAN CATCH Urine Color March 31, 2014 8:39am Lt. yellow - Urine obtained via URINE, CLEAN CATCH Urine HCG, Qualitative March 31, 2014 8:39am Positive - Urine obtained via URINE, CLEAN CATCH HCG Beta Subunit March 31, 2014 7:55am [...] 940-60,000 mIU/ML INDICATES 29-41 WEEKS (3RD TRIMESTER) Glomerular Filtration Rate Calc March 31, 2014 7:55am 130.5 mL/min H 60.0-128.0 Total Alkaline Phosphatase March 31, 2014 7:55am 105 U/L N 50-136 Alanine Aminotransferase (ALT/SGPT) March 31, 2014 7:55am 16 U/L N 12 -78 Aspartate Amino Transf (AST/SGOT) March 31, 2014 7:55am 13 U/L L 15- 37 Total Bilirubin March 31, 2014 7:55am 0.70 mg/dL N 0.00-1.00 Albumin March 31, 2014 7:55am 3.6 gm/dL N 3.4-5.0 Total Protein March 31, 2014 7:55am 8.0 gm/dL N 6.4-8.2 Calcium Level March 31, 2014 7:55am 9.0 mg/dL N 8.8-10.5 Carbon Dioxide Level March 31, 2014 7:55am 24.6 mEq/L N 21-32 Chloride Level March 31, 2014 7:55am 103 mEq/L N 98-107 Potassium Level March 31, 2014 7:55am 3.5 mEq/L N 3.5-5.0 Sodium Level March 31, 2014 7:55am 140 mEq/L N 136-145 Creatinine March 31, 2014 7:55am 0.6 mg/dL N 0.6-1.0 Blood Urea Nitrogen March 31, 2014 7:55am 5 mg/dL L 7-18 Random Glucose March 31, 2014 7:55am 80 mg/dL N 70-110 Basophils # (Auto) March 31, 2014 7:55am 0.0 K/uL N 0.0-0.2 Eosinophils # (Auto) March 31, 2014 7:55am 0.1 K/uL N 0.0-0.7 Monocytes # (Auto) March 31, 2014 7:55am 0.4 K/uL N 0.1-0.6 Lymphocytes # (Auto) March 31, 2014 7:55am 1.7 K/uL N 1.2-3.4 Neutrophils # (Auto) March 31, 2014 7:55am 6.7 K/uL N 2.0-6.9 Basophils (%) (Auto) March 31, 2014 7:55am 0.5 % N 0.0-1.0 Eosinophils (%) (Auto) March 31, 2014 7:55am 0.9 % N 0.0-2.0 Monocytes (%) (Auto) March 31, 2014 7:55am 4.3 % N 1.7-9.3 Lymphocytes (%) (Auto) March 31, 2014 7:55am 19.3 % L 20.5-51.1 Neutrophils (%) (Auto) March 31, 2014 7:55am 75.0 % N 42.2-75.2 Mean Platelet Volume March 31, 2014 7:55am 7.1 fL L 7.4-10.4 Platelet Count March 31, 2014 7:55am 260 K/uL N 130-400 Red Cell Distribution Width March 31, 2014 7:55am 12.3 % N 11.5-14.5 Mean Corpuscular Hemoglobin Concent March 31, 2014 7:55am 35.3 g/dL N 30.0-37.0 Mean Corpuscular Hemoglobin March 31, 2014 7:55am 29.6 pg N 27.0- 31.0 Mean Corpuscular Volume March 31, 2014 7:55am 84.0 fL N 81.0-99.0 Hematocrit March 31, 2014 7:55am 40.6 % N 37.0-47.0 Hemoglobin March 31, 2014 7:55am 14.3 gm/dL N 12.0-16.0 Red Blood Count March 31, 2014 7:55am 4.83 M/uL N 4.20-5.40 White Blood Count March 31, 2014 7:55am 8.9 K/uL N 4.8-10.8 Wet Prep Vaginal March 31, 2014 9:06am Urine Culture Urine,Clean Catch March 31, 2014 8:39am Pending Procedures Procedure Status Date Provider(s) Limited obstetrical ultrasound completed 03/31/14 GENEVIEVE PERALES DO Encounters Encounter Location Date/Time Departed Emergency Room [place] [facility] 03/31/14 7:21am Recent Diagnosis
--- OUTSIDE RECORDS SUMMARY | 2018-01-07 14:55 | XMS REPORT | Continuity of Care Document ---
Author Author [facility] Organization [facility] Address [facility] [address] [place] [address] Phone Unavailable Support Name Relationship Address Phone JASMYN WEST D.O. Caregiver [address] [place] [address] PADILLA HARMON Next Of Kin [phone] [place] [address] Insurance Providers Payer Name Policy Number Subscriber Name Relationship Self Pay Insurance Debbie Harmon 18 Self / Same As Patient Advance Directives Directive Response Recorded Date/Time Advance Directives No 03/31/14 7:18am Living Will No 03/31/14 7:18am Health Care Proxy No 02/18/15 1:05pm Power of Dross Puller for Health Care No 03/31/14 7:18am Who is designated as your agent/rep. to act on your behalf? PT 04/02/14 10: 14am Organ, Tissue, or Eye Donor No 03/31/14 7:17am Do you have a signed organ donor card? No 03/31/14 7:17am Chief Complaint and Reason for Visit Chief Complaint NAUSEA & VOMITING Reason for Visit [id number] Problems Active Problems Medical Problem Onset Date Status Nausea and vomiting during Unknown Acute Unknown [...] As Needed For Pain for Pain 04/02/14 Acetaminophen/Hydrocodone Bitart (Lortab 5-325*) 1 Tab [...] discharge instructions. Plan of Care Discharge Date 02/18/15 3:38pm Disposition 01 HOME, ALF,ASSISTED LIVING Condition at Discharge Stable Instructions/Education Provided (GEN) Prescriptions See Medication Section Referrals ADONIS LOUIS D.O. - Functional Status Query Response Date Recorded Patient Behavior Appropriate February 18, 2015 1:16pm Allergies, Adverse Reactions, Alerts No known allergies. Immunizations Name Given Type Hx Diphtheria, Pertussis, Tetanus Vaccination Unknown Historical Hx Influenza Vaccination No Historical Hx Pneumococcal Vaccination No Historical Vital Signs Acute Vital Signs Vital Response Date/Time Temperature (Fahrenheit) 97.7 degrees F (97.6 - 99.5) 02/18/2015 1:16pm Temperature Source Temporal Artery 02/18/2015 1:16pm Pulse Rate (adult) 80 bpm (60 - 90) 02/18/2015 3:00pm Respiratory Rate 18 bpm (12 - 24) 02/18/2015 3:00pm Blood Pressure 128/72 mm Hg 02/18/2015 3:00pm O2 Sat by Pulse Oximetry 99 % (90 - 100) 02/18/2015 3:00pm Oxygen Delivery Method 02/18/2015 3:00pm Height 5 ft 3 in Weight 180 lb Body Mass Index 32.0 kg/m^2 Results Laboratory Results Test Name Result Units Flags Reference Collection Date/Time Result Date/ Time Comments White Blood Count 9.8 K/uL 4.8-10.8 02/18/2015 2:00pm 02/18/2015 2: 26pm Red Blood Count 4.87 M/uL 4.20-5.40 02/18/2015 2:00pm 02/18/2015 2: 26pm Hemoglobin 14.2 gm/dL 12.0-16.0 02/18/2015 2:00pm 02/18/2015 2:26pm Hematocrit 42.5 % 37.0-47.0 02/18/2015 2:00pm 02/18/2015 2:26pm Mean Corpuscular Volume 87.4 fL 81.0-99.0 02/18/2015 2:00pm 02/18/2015 2:26pm Mean Corpuscular Hemoglobin 29.2 pg 27.0-31.0 02/18/2015 2:00pm 2015 2:26pm Mean Corpuscular Hemoglobin Concent 33.4 g/dL 30.0-37.0 02/18/2015 2: 00pm 02/18/2015 2:26pm Red Cell Distribution Width 13.5 % 11.5-14.5 02/18/2015 2:00pm 2015 2:26pm Platelet Count 318 K/uL 130-400 02/18/2015 2:00pm 02/18/2015 2:26pm Mean Platelet Volume 7.2 fL L 7.4-10.4 02/18/2015 2:00pm 02/18/2015 2: 26pm Neutrophils (%) (Auto) 65.4 % 42.2-75.2 02/18/2015 2:00pm 02/18/2015 2: 26pm Lymphocytes (%) (Auto) 28.4 % 20.5-51.1 02/18/2015 2:00pm 02/18/2015 2: 26pm Monocytes (%) (Auto) 4.6 % 1.7-9.3 02/18/2015 2:00pm 02/18/2015 2:26pm Eosinophils (%) (Auto) 1.4 % 0-3 02/18/2015 2:00pm 02/18/2015 2:26pm Basophils (%) (Auto) 0.1 % 0.0-1.0 02/18/2015 2:00pm 02/18/2015 2:26pm Neutrophils # (Auto) 6.4 K/uL 2.0-6.9 02/18/2015 2:00pm 02/18/2015 2: 26pm Lymphocytes # (Auto) 2.8 K/uL 1.2-3.4 02/18/2015 2:00pm 02/18/2015 2: 26pm Monocytes # (Auto) 0.5 K/uL 0.1-0.6 02/18/2015 2:00pm 02/18/2015 2: 26pm Eosinophils # (Auto) 0.1 K/uL 0.0-0.7 02/18/2015 2:00pm 02/18/2015 2: 26pm Basophils # (Auto) 0.0 K/uL 0.0-0.2 02/18/2015 2:00pm 02/18/2015 2: 26pm Random Glucose 77 mg/dL 70-110 02/18/2015 2:00pm 02/18/2015 2:24pm Blood Urea Nitrogen 9 mg/dL 7-18 02/18/2015 2:00pm 02/18/2015 2:24pm Creatinine 0.7 mg/dL 0.55-1.02 02/18/2015 2:00pm 02/18/2015 2:24pm Sodium Level 140 mEq/L 136-145 02/18/2015 2:00pm 02/18/2015 2:24pm Potassium Level 3.9 mEq/L 3.5-5.0 02/18/2015 2:00pm 02/18/2015 2:24pm Chloride Level 105 mEq/L 98-107 02/18/2015 2:00pm 02/18/2015 2:24pm Carbon Dioxide Level 27.4 mEq/L 21-32 02/18/2015 2:00pm 02/18/2015 2: 24pm Calcium Level 8.3 mg/dL L 8.8-10.5 02/18/2015 2:00pm 02/18/2015 2:24pm Total Protein 7.4 gm/dL 6.4-8.2 02/18/2015 2:00pm 02/18/2015 2:24pm Albumin 3.6 gm/dL 3.4-5.0 02/18/2015 2:00pm 02/18/2015 2:24pm Total Bilirubin 0.50 mg/dL 0.00-1.00 02/18/2015 2:00pm 02/18/2015 2: 24pm Aspartate Amino Transf (AST/SGOT) 13 U/L L 15-37 02/18/2015 2:00pm 02/18 2:24pm Alanine Aminotransferase (ALT/SGPT) 18 U/L 12-78 02/18/2015 2:00pm 11/2015 2:24pm Total Alkaline Phosphatase 74 U/L 46-116 02/18/2015 2:00pm 02/18/2015 2 :24pm Urine Color YELLOW YELLOW 02/18/2015 2:00pm 02/18/2015 2:24pm Urine Appearance SL CLOUDY H CLEAR 02/18/2015 2:00pm 02/18/2015 2: 24pm Urine Glucose (UA) NEGATIVE mg/dL NEGATIVE 02/18/2015 2:00pm 2015 2:24pm Urine Bilirubin NEGATIVE NEGATIVE 02/18/2015 2:00pm 02/18/2015 2: 24pm Urine Ketones NEGATIVE mg/dL NEGATIVE 02/18/2015 2:00pm 02/18/2015 2: 24pm Urine Specific [place] >=1.030 H 1.010-1.025 02/18/2015 2:00pm 2015 2:24pm Urine Occult Blood NEGATIVE NEGATIVE 02/18/2015 2:00pm 02/18/2015 2: 24pm Urine pH 6.0 5.0-8.0 02/18/2015 2:00pm 02/18/2015 2:24pm Urine Protein NEGATIVE mg/dL NEGATIVE 02/18/2015 2:00pm 02/18/2015 2: 24pm Urine Urobilinogen 0.2 mg/dL E.U./dL 0.2-1.0 02/18/2015 2:00pm 2015 2:24pm Urine Nitrate POSITIVE H NEGATIVE 02/18/2015 2:00pm 02/18/2015 2:24pm Urine Leukocyte Esterase 1+ (Small) H NEGATIVE 02/18/2015 2:00pm 02/18 2:24pm Urine RBC 3-4 /hpf H 0 02/18/2015 2:00pm 02/18/2015 2:24pm Urine WBC 1-2 /hpf 0-4 02/18/2015 2:00pm 02/18/2015 2:24pm Urine Squamous Epithelial Cells 10-15 /hpf 0-1 02/18/2015 2:00pm 2015 2:24pm Urine Bacteria 3+ H NEGATIVE 02/18/2015 2:00pm 02/18/2015 2:24pm Urine HCG, Qualitative POSITIVE NEG 02/18/2015 2:00pm 02/18/2015 2: 24pm Glomerular Filtration Rate Calc 109.3 mL/min 02/18/2015 2:00pm 2015 2:24pm Procedures No known history of procedures. Encounters Encounter Location Arrival/Admit Date Discharge/Depart Date Attending Provider Departed Emergency Room [place] 02/18/15 1:06pm 02/18/15 3:38pm JASMYN WEST D.O. Recent Diagnosis
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
== END 2018-01-07 08:18 | disposition home or self-care (01) ==
LOC: EDUNIT# 07:53 → ER 07:54
DX: S61.411D Laceration without foreign body of right hand, subsequent encounter (principal); X58.XXXD Exposure to other specified factors, subsequent encounter

== ENCOUNTER 2018-06-06 00:38 | Emergency (ER) | payer MEDICAID ==
[~2018-06-06] VITALS: Ht 162.6 cm; Wt 88.5 kg
[2018-06-06] MEDS ORDERED: LACTATED RINGERS 1,000 ML IV ONE (00:55)
[2018-06-06] MEDS ORDERED: ONDANSETRON 4 MG/2 ML (SDV) Z0FRAN IVP ONE (01:00)
[2018-06-06 01:03] LABS: BILIRUBIN,URINE NEGATIVE (NEGATIVE); CLARITY,URINE CLEAR; COLOR,URINE YELLOW; GLUCOSE, URINE (UA) NEGATIVE (NEGATIVE); KETONES,URINE 3+ (NEGATIVE); LEUKOCYTE ESTERASE ,URINE 1+ (NEGATIVE); NITRITE,URINE NEGATIVE (NEGATIVE); PH,URINE 5 (5-9); PROTEIN,URINE 2+ (NEGATIVE); UROBILINOGEN,URINE 1 MG/DL (NORMAL)
[2018-06-06 01:09] LABS: BACTERIA,URINE TRACE /HPF
[2018-06-06 01:10] LABS: CALCIUM OXALATE CRYSTALS,UR FEW /LPF
[2018-06-06 01:16] LABS: BASOPHILS % (AUTO) 0 % (0-10); EOSINOPHILS # (AUTO) 0.1 10^3/uL (0.0-0.3); EOSINOPHILS % (AUTO) 1 % (0-10); HEMATOCRIT 42 % (35-52); HEMOGLOBIN 14.1 G/DL (11.5-16.0); LYMPHOCYTES # (AUTO) 1.9 X 10^3 (1.0-4.0); LYMPHOCYTES % (AUTO) 15 % (12-44); MEAN CORPUSCULAR HEMOGLOBIN 31 PG (25-34); MEAN CORPUSCULAR HGB CONC 34 G/DL (32-36); MEAN CORPUSCULAR VOLUME 91 FL (80-99); MEAN PLATELET VOLUME 9.5 FL (7.4-10.4); MONOCYTES # (AUTO) 0.5 X 10^3 (0.0-1.0); MONOCYTES % (AUTO) 4 % (0-12); NEUTROPHILS # (AUTO) 10.3 X 10^3 (1.8-7.8); NEUTROPHILS % (AUTO) 80 % (42-75); PLATELET COUNT 290 10^3/uL (130-400); RED CELL DISTRIBUTION WIDTH 13.5 % (10.0-14.5); WHITE BLOOD COUNT 12.8 10^3/uL (4.3-11.0)
--- NOTE | 2018-06-06 01:16 | ED Abdominal Pain ---
General Stated Complaint: THROWING UP, STABBING PAIN IN RIGHT SIDE Source of Information: Patient History of Present Illness Date Seen by Provider: Jun 06, 2018 Time Seen by Provider: 00:55 Initial Comments PT ARRIVES VIA POV STATES SHE THINKS SHE IS PASSING A KIDNEY STONE HAS HAD KIDNEY STONE IN THE PAST, BUT HAS PASSED ON HER OWN, NO SURGERY REQUIRED HAS NEVER SEEN A UROLOGIST PT STATES WHILE SHE WAS AT WORK TONIGHT, AROUND 2100, SHE BEGAN TO HAVE NAUSEA/ VOMITING/DIARRHEA, DIFFICULTY URINATING WITH MUCH URGENCY BUT CANNOT VOID, AND SHARP RIGHT SIDED ABDOMINAL AND FLANK PAIN PAIN IS WORSE IF STANDING FOR LONG PERIODS OF TIME HAS NOT TAKEN ANYTHING FOR PAIN VOMITED X 1 DIARRHEA X 4 NO FEVER LMP FIRST April, ON OCP'S PCP: KYLE MARTINEZ Allergies and Home Medications Allergies Coded Allergies: No Known Drug Allergies (Unverified , 06/28/17) Home Medications Hydrocodone Bit/Acetaminophen 1 Ea Tablet, 1 EA PO 4 times a day Prescribed by: CAROLINA LIU on 06/28/17 1130 Hydrocodone/Ibuprofen 1 Each Tablet, 1 EACH PO Q4H Prescribed by: GABRIELE SANTANA on 06/06/18251 Nitrofurantoin Monohyd/M-Cryst 100 Mg Capsule, 100 MG PO BID Prescribed by: GABRIELE SANTANA on 06/06/18251 Ondansetron 4 Mg Tab.rapdis, 4 MG PO Q4H Prescribed by: GABRIELE SANTANA on 06/06/18251 Tamsulosin HCl 0.4 Mg Cap, 0.4 MG PO DAILY Prescribed by: GABRIELE SANTANA on 06/06/18251 Patient Home Medication List Home Medication List Reviewed: Yes Review of Systems Review of Systems Constitutional: no symptoms reported; No fever Respiratory: No Symptoms Reported Cardiovascular: No Symptoms Reported Gastrointestinal: See HPI, Abdominal Pain, Nausea, Vomiting Genitourinary: See HPI, Flank Pain, Urgency Musculoskeletal: see HPI, back pain Skin: no symptoms reported Psychiatric/Neurological: No Symptoms Reported Endocrine: No Symptoms Reported Hematologic/Lymphatic: No Symptoms Reported Past Ascuzap-Ulhqgl-Wwnken Hx Patient Social History Alcohol Use: Occasionally Uses Recreational Drug Use: No Smoking Status: Former Smoker (/2 PPD, QUIT 2009) Type Used: Cigarettes Recent Foreign Travel: No Contact w/Someone Who Travel: No Past Medical History Surgeries: Yes ( X 3; PT HAS A DEVICE IN HER HEART--NOTED ON XRAY AND CT, BUT PT WAS UNAWARE OF PRIOR HEART SURGERY OR ANY HEART PROBLEMS; BIRTHMARK REMOVED FROM LEFT NECK) Cardiac, Section Respiratory: No Cardiac: No (PT WAS UNAWARE OF ANY HEART PROBLEMS OR HEART SURGERY, BUT A BRUSH CLEARER SURVEYING IS PRESENT IN HER HEART --ON XRAY AND CT. ) Neurological: No : No Female Reproductive Disorders: Denies Genitourinary: Yes Kidney Stones Gastrointestinal: No Musculoskeletal: No Endocrine: No HEENT: No Cancer: No Psychosocial: No Integumentary: No Blood Disorders: No Physical Exam Vital Signs Vital Signs - First Documented 06/06/18 06/06/18 00:50 03:18 Temp 98.0 Pulse 77 Resp 18 B/P (MAP) 133/74 (93) Pulse Ox 98 Capillary Refill : Height/Weight/BMI Height: 5'4.00" Weight: 220lbs. oz. 99.263741tx; 35.15 BMI Method:Stated General Appearance: WD/WN, no apparent distress, other (FLAT AFFECT. LAYING OUTSTRETCHED ON HER RIGHT SIDE, HEAD PROPPED UP ON WITH HER RIGHT HAND. DOES NOT APPEAR TO BE IN ANY DISCOMFORT. 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, no motor/sensory deficits, alert, oriented x 3, other (VERY FLAT AFFECT, SLIGHTLY SLOW MENTATION) Skin: normal color, warm/dry; No rash Progress/Results/Core Measures Results/Orders Lab Results Laboratory Tests Test 06/06/18 00:52 06/06/18 01:08 06/06/18 01:49 Range/Units Urine Color YELLOW Urine Clarity CLEAR Urine pH 5 5-9 Urine Specific [place] 1.030 H 1.016-1.022 Urine Protein 2+ H NEGATIVE Urine Glucose (UA) NEGATIVE NEGATIVE Urine Ketones 3+ H NEGATIVE Urine Nitrite NEGATIVE NEGATIVE Urine Bilirubin NEGATIVE NEGATIVE Urine Urobilinogen 1 NORMAL MG/DL Urine Leukocyte Esterase 1+ H NEGATIVE Urine RBC (Auto) 5+ H NEGATIVE Urine RBC 5-10 H /HPF Urine WBC NONE /HPF Urine Squamous Epithelial Cells 5-10 /HPF Urine Crystals PRESENT H /LPF Urine Calcium Oxalate Crystals FEW H /LPF Urine Bacteria TRACE /HPF Urine Casts NONE /LPF Urine Mucus SMALL H /LPF Urine Culture Indicated NO White Blood Count 12.8 H 4.3-11.0 10^3/uL Red Blood Count 4.62 4.35-5.85 10^6/uL Hemoglobin 14.1 11.5-16.0 G/DL Hematocrit 42 35-52 % Mean Corpuscular Volume 91 80-99 FL Mean Corpuscular Hemoglobin 31 25-34 PG Mean Corpuscular Hemoglobin Concent 34 32-36 G/DL Red Cell Distribution Width 13.5 10.0-14.5 % Platelet Count 290 130-400 10^3/uL Mean Platelet Volume 9.5 7.4-10.4 FL Neutrophils (%) (Auto) 80 H 42-75 % Lymphocytes (%) (Auto) 15 12-44 % Monocytes (%) (Auto) 4 0-12 % Eosinophils (%) (Auto) 1 0-10 % Basophils (%) (Auto) 0 0-10 % Neutrophils # (Auto) 10.3 H 1.8-7.8 X 10^3 Lymphocytes # (Auto) 1.9 1.0-4.0 X 10^3 Monocytes # (Auto) 0.5 0.0-1.0 X 10^3 Eosinophils # (Auto) 0.1 0.0-0.3 10^3/uL Basophils # (Auto) 0.0 0.0-0.1 10^3/uL Sodium Level 141 135-145 MMOL/L Potassium Level 3.4 L 3.6-5.0 MMOL/L Chloride Level 105 98-107 MMOL/L Carbon Dioxide Level 23 21-32 MMOL/L Anion Gap 13 5-14 MMOL/L Blood Urea Nitrogen 11 7-18 MG/DL Creatinine 0.77 0.60-1.30 MG/DL Estimat Glomerular Filtration Rate > 60 BUN/Creatinine Ratio 14 Glucose Level 132 H 70-105 MG/DL Calcium Level 10.1 8.5-10.1 MG/DL Corrected Calcium 9.8 8.5-10.1 MG/DL Total Bilirubin 0.5 0.1-1.0 MG/DL Aspartate Amino Transf (AST/SGOT) 14 5-34 U/L Alanine Aminotransferase (ALT/SGPT) 12 0-55 U/L Alkaline Phosphatase 63 40-136 U/L Total Protein 7.7 6.4-8.2 GM/DL Albumin 4.4 3.2-4.5 GM/DL Amylase Level 54 25-125 U/L Lipase 25 8-78 U/L Serum Test, Qualitative NEGATIVE NEGATIVE Urine Opiates Screen NEGATIVE NEGATIVE Urine Oxycodone Screen NEGATIVE NEGATIVE Urine Methadone Screen NEGATIVE NEGATIVE Urine Propoxyphene Screen NEGATIVE NEGATIVE Urine Barbiturates Screen NEGATIVE NEGATIVE Ur Tricyclic Antidepressants Screen NEGATIVE NEGATIVE Urine Phencyclidine Screen NEGATIVE NEGATIVE Urine Amphetamines Screen NEGATIVE NEGATIVE Urine Methamphetamines Screen NEGATIVE NEGATIVE Urine Benzodiazepines Screen NEGATIVE NEGATIVE Urine Cocaine Screen NEGATIVE NEGATIVE Urine Cannabinoids Screen NEGATIVE NEGATIVE My Orders Orders - GABRIELE SANTANA DO Ct Abd/Pelvis Wo(Kidney Stone) (06/06/18 00:55) Amylase (06/06/18 00:55) Cbc With Automated Diff (06/06/18 00:55) Comprehensive Metabolic Panel (06/06/18 00:55) Lipase (06/06/18 00:55) Urinalysis (06/06/18 00:55) Acute Abd Series (06/06/18 00:55) Ed Iv/Invasive Line Start (06/06/18 00:55) Drug Screen Stat (Urine) (06/06/18 00:55) Hcg,Qualitative Serum (06/06/18 00:55) Ed Iv/Invasive Line Start (06/06/18 00:55) Lactated Ringers (Lr 1000 Ml Iv Solution (06/06/18 00:55) Ondansetron Injection (Zofran Injectio (06/06/18 01:00) Ketorolac Injection (Toradol Injection) (06/06/18 01:45) Tamsulosin Capsule (Flomax Capsule) (06/06/18 03:10) Rx-Hydrocodone/Apap 5-325 Mg (Rx-Vicodin (06/06/18 03:15) Nitrofurantoin Capsule,Macro (Macrobid C (06/06/18 03:15) Ketorolac Injection (Toradol Injection) (06/06/18 02:46) Medications Given in ED Current Medications Medications Dose Ordered Sig/Josue Route Start Time Stop Time Status Last Admin Dose Admin Acetaminophen/ Hydrocodone Bitart 1 ea Q4H PRN PO 4/28/19 03:15 06/06/18 03:21 DC 06/06/18 03:17 1 EA Ketorolac Tromethamine 30 mg ONCE ONCE IVP 06/06/18 01:45 06/06/18 03:21 DC 06/06/18 02:55 30 MG Lactated Ringer's 1,000 ml @ 0 mls/hr Q0M ONCE IV 06/06/18 00:55 06/06/18 00:58 DC 06/06/18 01:20 999 MLS/HR Nitrofurantoin Macrocrystals 100 mg ONCE ONCE PO 06/06/18 03:15 06/06/18 03:16 DC 06/06/18 03:15 100 MG Ondansetron HCl 4 mg ONCE ONCE IVP 06/06/18 01:00 06/06/18 01:01 DC 06/06/18 01:20 4 MG Tamsulosin HCl 0.4 mg DAILY@1800 ONCE PO 06/06/18 03:10 06/06/18 03:11 DC 06/06/18 03:15 0.4 MG Vital Signs/I&O 06/06/18 06/06/18 00:50 03:18 Temp 98.0 98.0 Pulse 77 70 Resp 18 18 B/P (MAP) 133/74 (93) 119/83 (95) Pulse Ox 98 Progress Progress Note : Progress Note PAIN AND NAUSEA EASED WITH MEDICATIONS PT WAS ADVISED TO QUESTION HER PARENTS REGARDING PRIOR HEART SURGERY, SHE WAS UNAWARE THAT SHE HAS HAD ANY HEART PROBLEMS OR EVER HAD HEART SURGERY. Diagnostic Imaging Comments KUB--NO ACUTE PROCESS, PENDING RADIOLOGIST REVIEW CT ABDOMEN/ PELVIS--2 MM STONE IN RIGHT UVJ, WITH SEVERE DILATION OF RIGHT RENAL COLLECTING SYSTEM, PER [facility] VIA FAX @ [phone] Reviewed: Reviewed by Me Departure Impression Primary Impression: Right distal ureteral calculus Disposition: HOME, SELF-CARE Condition: Improved Departure-Patient Inst. Referrals: NO,LOCAL PHYSICIAN (PCP) Primary Care Physician ROBBIE SANTORO MD Patient Instructions: How to Strain Your Urine, Kidney Stones (DC) Add. Discharge Instructions: LOTS OF CLEAR LIQUIDS STRAIN ALL URINE--RETURN ANY STONES TO DR. SANTORO'S OFFICE FOLLOW UP WITH DR. SANTORO NEXT WEEK FOR FURTHER CARE Scripts Tamsulosin HCl (Flomax) 0.4 Mg Cap 0.4 MG PO DAILY, #10 CAP Prov: GABRIELE SANTANA DO 06/06/18 Ondansetron (Ondansetron Odt) 4 Mg Tab.rapdis 4 MG PO Q4H for Nausea/Vomiting, #10 TAB Prov: GABRIELE SANTANA DO 06/06/18 Hydrocodone/Ibuprofen (Hydrocodone-Ibuprofen 7.5-200) 1 Each Tablet 1 EACH PO Q4H for Pain MDD 6, #20 TAB Prov: GABRIELE SANTANA DO 06/06/18 Nitrofurantoin Monohyd/M-Cryst (Macrobid 100 mg Capsule) 100 Mg Capsule 100 MG PO BID, #20 CAP Prov: GABRIELE SANTANA DO 06/06/18 GABRIELE SANTANA DO Jun 06, 2018 01:16
[2018-06-06 01:35] LABS: ALANINE AMINOTRANSFERASE 12 U/L (0-55); ALBUMIN 4.4 GM/DL (3.2-4.5); ALKALINE PHOSPHATASE 63 U/L (40-136); AMYLASE 54 U/L (25-125); BILIRUBIN,TOTAL 0.5 MG/DL (0.1-1.0); BUN/CREATININE RATIO 14; CALCIUM 10.1 MG/DL (8.5-10.1); CARBON DIOXIDE 23 MMOL/L (21-32); CHLORIDE 105 MMOL/L (98-107); CREATININE SERUM 0.77 MG/DL (0.60-1.30); GFR ESTIMATED > 60; GLUCOSE 132 MG/DL (70-105); LIPASE 25 U/L (8-78); POTASSIUM 3.4 MMOL/L (3.6-5.0); SODIUM 141 MMOL/L (135-145); TOTAL PROTEIN 7.7 GM/DL (6.4-8.2)
[2018-06-06] MEDS ORDERED: KETOROLAC 30 MG/ML VIAL IVP ONE (01:45)
[2018-06-06 02:06] LABS: AMPHETAMINE SCREEN, URINE NEGATIVE (NEGATIVE); BARBITURATE SCREEN URINE NEGATIVE (NEGATIVE); BENZODIAZEPINES SCREEN URINE NEGATIVE (NEGATIVE); CANNABINOID SCREEN, URINE NEGATIVE (NEGATIVE); COCAINE SCREEN URINE NEGATIVE (NEGATIVE); METHADONE STAT NEGATIVE (NEGATIVE); METHAMPHETAMINE SCREEN URINE S NEGATIVE (NEGATIVE); OPIATE SCREEN URINE NEGATIVE (NEGATIVE); OXYCODONE STAT NEGATIVE (NEGATIVE); PROPOXYPHENE STAT NEGATIVE (NEGATIVE); TRICYCLIC ANTIDEPRESSANTS SCRE NEGATIVE (NEGATIVE)
[2018-06-06] MEDS ORDERED: KETOROLAC 30 MG/ML VIAL ONE (02:46)
[2018-06-06] MEDS ORDERED: ONDA4TAB11 PO (02:52)
[2018-06-06] MEDS ORDERED: NITR-65 PO (02:52)
[2018-06-06] MEDS ORDERED: HYDR-87 PO (02:52)
[2018-06-06] MEDS ORDERED: TAMS0.4C98 PO (02:52)
[2018-06-06] MEDS ORDERED: TAMSULOSIN 0.4 MG (FLOMAX) CAP PO ONE (03:10)
[2018-06-06] MEDS ORDERED: RX-HYDROCODONE/APAP 5/325 MG #4 TAB PK PO PRN (03:15)
[2018-06-06] MEDS ORDERED: NITROFURANTOIN 100 MG (MACROBID) CAPSULE PO ONE (03:15)
[2018-06-06 03:18] VITALS: BP 119/83
--- NOTE | 2018-06-06 08:27 | Diagnostic Imaging Report ---
INDICATION: Right flank pain and difficulty voiding x1 day. TECHNIQUE: Single view chest with supine and upright radiographs of the abdomen. CORRELATION STUDY: None FINDINGS: Frontal radiograph of the chest demonstrates no acute abnormality. Likely atrial septal device over the right heart. Supine and upright radiographs of the abdomen demonstrates the bowel gas pattern to be unremarkable and without evidence for obstruction. No free air is seen under the diaphragms. Calcification most likely largely vasculature. Rightward curvature lumbar spine. IMPRESSION: 1. Negative for acute cardiopulmonary abnormality. 2. Unremarkable appearing bowel gas pattern. Dictated by: Dictated on workstation # [id number]
--- NOTE | 2018-06-06 08:29 | Diagnostic Imaging Report ---
PROCEDURE: CT urinary tract, rule out kidney stone. TECHNIQUE: Multiple contiguous axial images were obtained through the abdomen and pelvis without the use of intravenous contrast. Auto Exposure Controls were utilized during the CT exam to meet ALARA standards for radiation dose reduction. INDICATION: Right flank pain. Study compared 06/28/2017. FINDINGS: A 1.7 mm stone is at the level of the right ureterovesical junction resulting in a moderate severity of upstream right-sided hydroureteronephrosis. No urinoma or perinephric fluid collection. There is a punctate 2 mm nonobstructing stone within left lower pole calyces. No additional right-sided stone burden found. There is physiologic follicle in the left ovary. The uterus retroflexed unremarkable. There is no bowel obstruction. The liver, spleen, adrenals, pancreas and gallbladder all unremarkable. IMPRESSION: Small stone right UVJ results in a moderate severity of right-sided hydroureteronephrosis with nonobstructing left-sided calculus disease noted. No other significant finding. Dictated by: Dictated on workstation # [id number]
== END 2018-06-06 03:21 | disposition home or self-care (01) ==
LOC: EDUNIT# 00:38 → ER 00:41
DX: N13.2 Hydronephrosis with renal and ureteral calculous obstruction (principal); Z87.442 Personal history of urinary calculi; Z87.891 Personal history of nicotine dependence; Z98.890 Other specified postprocedural states
CPT/HCPCS: 36415; 74022; 74176; 80053; 80306; 81000; 82150; 83690; 84703; 85025

== ENCOUNTER 2019-04-05 08:11 | Emergency (ER) | payer SELFPAY ==
[~2019-04-05] VITALS: Ht 162 cm; Wt 86.5 kg
[~2019-04-05 08:11] MED LIST changes: +HYDR-87 PO; +NITR-65 PO; +ONDA4TAB11 PO; +TMSL.4C PO
[2019-04-05] MEDS ORDERED: IBUPROFEN 800 MG (MOTRIN) TAB PO STA (09:07)
--- NOTE | 2019-04-05 09:40 | ED Lower Extremity ---
General Chief Complaint: Lower Extremity Stated Complaint: R ANKLE PAIN Nursing Triage Note: ARRIVED VIA AMB TO ROOM 10. STATES SHE FELL LAST NIGHT GETTING INTO HER TRUCK HURTING HER RIGHT ANKLE AND TAILBONE. Nursing Sepsis Screen: No Definite Risk Source: patient Exam Limitations: no limitations History of Present Illness Date Seen by Provider: Apr 05, 2019 Time Seen by Provider: 09:00 Initial Comments Here with report of right ankle pain and tailbone pain after falling out of her truck yesterday evening. She was able to walk and okay. Complains of pain to both areas. She did take ibuprofen yesterday but has not had anything today. Denies other injury or concerns. Onset: yesterday Severity: mild Pain/Injury Location: right ankle; bilateral other (, tailbone) Method of Injury: fell Modifying Factors: Improves With Immobilization; Worse With Movement; Improves With Rest Allergies and Home Medications Allergies Coded Allergies: No Known Drug Allergies (Unverified , 06/28/17) Patient Home Medication List Home Medication List Reviewed: Yes Review of Systems Constitutional: see HPI; No chills, No fever Respiratory: no symptoms reported Cardiovascular: no symptoms reported Musculoskeletal: see HPI, joint pain, muscle pain Skin: No change in color, No lesions Past Mitqeju-Yjdmel-Mefbew Hx Past Med/Social Hx: Reviewed Nursing Past Med/Soc Hx Patient Social History Alcohol Use: Occasionally Uses Recreational Drug Use: No Smoking Status: Never a Smoker Type Used: Cigarettes Recent Foreign Travel: No Contact w/Someone Who Travel: No Recent Infectious Disease Expo: No Recent Hopitalizations: No Seasonal Allergies Seasonal Allergies: No Past Medical History Surgeries: Yes Cardiac, Section Respiratory: No Cardiac: No Neurological: No Female Reproductive Disorders: Denies Genitourinary: Yes Kidney Stones Gastrointestinal: No Musculoskeletal: No Endocrine: No HEENT: No Cancer: No Psychosocial: No Integumentary: No Blood Disorders: No Family Medical History Reviewed Nursing Family Hx Physical Exam Vital Signs Vital Signs - First Documented 04/05/19 08:40 Temp 36.6 Pulse 72 Resp 16 B/P (MAP) 129/83 (98) Pulse Ox 98 O2 Delivery Room Air Capillary Refill : Less Than 3 Seconds Height, Weight, BMI Height: 5'4.00" Weight: 195lbs. oz. 88.646189yr; 32.00 BMI Method:Stated General Appearance: WD/WN, no apparent distress Cardiovascular: regular rate, rhythm, no murmur Respiratory: lungs clear, normal breath sounds Back: no vertebral tenderness, other (tender [place] bone.) Ankles: left ankle non-tender, left ankle normal inspection; bilateral ankle normal range of motion; right ankle pain (lateral aspect), right ankle soft tissue tenderness (lateral aspect), right ankle swelling (mild lateral aspect) Neurologic/Psychiatric: alert, oriented x 3 Skin: normal color, warm/dry; No ecchymosis Progress/Results/Core Measures Results/Orders My Orders Orders - GUZMAN BRANNON MD Ankle, Right, 3 Views (04/05/19 09:06) Sacrum And Coccyx (04/05/19 09:06) Ibuprofen Tablet (Motrin Tablet) (04/05/19 09:07) Vital Signs/I&O 04/05/19 08:40 Temp 36.6 Pulse 72 Resp 16 B/P (MAP) 129/83 (98) Pulse Ox 98 O2 Delivery Room Air Blood Pressure Mean: 98 Progress Progress Note : Progress Note Seen and evaluated. X-ray right ankle and sacrum/coccyx. Ibuprofen 800 mg by mouth. Monitor patient. 0955: No acute findings. Donal wrap to right ankle. Discharged home with return precautions. Patient verbalize understanding instructions and agreement to plan Diagnostic Imaging Diagonstic Imaging: Xray Plain Films/CT/US/NM/MRI: other Comments [facility], [place] NAME: [facility] REC#: [id number] PT STATUS: REG ER : 1990 PHYSICIAN: GUZMAN BRANNON MD ADMIT DATE: 04/05/19/ER Draft Date of Exam:04/05/19 SACRUM AND COCCYX INDICATION: Fall with sacrum/coccyx injury. TECHNIQUE: 3 views of the sacrum/coccyx. COMPARISON: CT from 06/06/2018 FINDINGS: No acute fracture is seen in the sacrum or coccyx. There is slight S-shaped angulation of the coccyx, which appears stable compared to May 2018. Alignment otherwise appears normal. Phleboliths are seen in the pelvis. IMPRESSION: 1. No acute osseous abnormality is seen in the sacrum/coccyx. Dictated on workstation # [id number] Dict: 04/05/19 0939 Trans: 04/05/19 0941 [id number] Interpreted by: KEMAL TEJADA MD Electronically signed by: Tonia Imaging: Xray Plain Films/CT/US/NM/MRI: other Comments [facility], [place] NAME: [facility] REC#: [id number] PT STATUS: REG ER : 1990 PHYSICIAN: GUZMAN BRANNON MD ADMIT DATE: 04/05/19/ER Draft Date of Exam:04/05/19 ANKLE, RIGHT, 3 VIEWS INDICATION: Injury to the right ankle with pain. TECHNIQUE: 3 views of the right ankle. COMPARISON: None FINDINGS: No acute fracture or dislocation is seen in the right ankle. Alignment appears normal. Joint spaces are preserved. Ankle mortise is symmetric and the talar dome is intact. There is mild lateral soft tissue swelling. IMPRESSION: 1. Mild lateral soft tissue swelling of the right ankle with no acute osseous abnormality seen. Dictated on workstation # [id number] Dict: 04/05/19 0935 Trans: 04/05/19 0937 [id number] Interpreted by: KEMAL TEJADA MD Electronically signed by: Departure Impression Primary Impression: Right ankle sprain Qualified Codes: S93.401A - Sprain of unspecified ligament of right ankle, initial encounter Additional Impression: Coccygeal contusion Qualified Codes: S30.0XXA - Contusion of lower back and pelvis, initial encounter Disposition: 01 HOME, SELF-CARE Condition: Improved Departure-Patient Inst. Decision time for Depature: 09:58 Referrals: NO,LOCAL PHYSICIAN (PCP/Family) Primary Care Physician Patient Instructions: Coccyx Injury (DC), Ankle Sprain (DC) Add. Discharge Instructions: All discharge instructions reviewed with patient and/or family. Voiced understanding. You may continue ibuprofen 600 mg every 8 hours as needed for pain. You may use Tylenol/acetaminophen 1000 mg every 8 hours as needed for pain. Use ice packs to areas of concern 20 minutes per hour as needed. You can consider getting a donut pillow to sit on to decrease discomfort to your tailbone. You can purchase this at local pharmacies. Follow-up with your Dr. in a few days for recheck. Return for worse pain, fever, vomiting, weakness, breathing problems or other concerns as needed. GUZMAN BRANNON MD Apr 05, 2019 09:40
[2019-04-05 10:32] VITALS: BP 129/83
== END 2019-04-05 10:32 | disposition home or self-care (01) ==
LOC: EDUNIT# 08:11 → ER 08:13
DX: S93.401A Sprain of unspecified ligament of right ankle, initial encounter (principal); S30.0XXA Contusion of lower back and pelvis, initial encounter; W17.89XA Other fall from one level to another, initial encounter
CPT/HCPCS: 72220; 73610; 99282

== ENCOUNTER 2020-06-29 18:30 | Emergency (ER) | payer SELFPAY ==
[~2020-06-29] VITALS: Ht 162 cm; Wt 86.3 kg
[2020-06-29] MEDS ORDERED: KETOROLAC 60 MG/2 ML VIAL IM ONE (18:45)
[2020-06-29] MEDS ORDERED: ORPHENADRINE 60 MG/2 ML (NORFLEX) AMP (ED ONLY) IM ONE (18:45)
--- NOTE | 2020-06-29 18:46 | ED Back Pain ---
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 About 15 minutes later she developed some numbness to her left arm and her left leg. No headache. No anticoagulant use. No injury. Location: Paraspinous Muscles, T-Spine Timing/Duration: 1-2 Days Severity: Moderate Pain/Injury Location: Back Associated Symptoms: denies symptoms Allergies and Home Medications Allergies Coded Allergies: No Known Drug Allergies (Unverified , 06/28/17) Patient Home Medication List Home Medication List Reviewed: Yes Review of Systems Constitutional: see HPI EENTM: see HPI Respiratory: no symptoms reported Cardiovascular: no symptoms reported Genitourinary: no symptoms reported Musculoskeletal: see HPI Skin: no symptoms reported Psychiatric/Neurological: No Symptoms Reported Past Jqhrbpq-Wleavy-Sjcgoo Hx Patient Social History Type Used: Cigarettes Recent Hopitalizations: No Seasonal Allergies Seasonal Allergies: No Past Medical History Surgeries: Yes Cardiac, Section Respiratory: No Cardiac: No Neurological: No Female Reproductive Disorders: Denies Genitourinary: Yes Kidney Stones Gastrointestinal: No Musculoskeletal: No Endocrine: No HEENT: No Cancer: No Psychosocial: No Integumentary: No Blood Disorders: No Physical Exam Vital Signs Vital Signs - First Documented 06/29/20 18:42 Temp 35.4 Pulse 93 Resp 18 B/P (MAP) 139/91 (107) Pulse Ox 99 O2 Delivery Room Air Capillary Refill : Height, Weight, BMI Height: 5'4.00" Weight: 195lbs. oz. 88.158345ke; 32.00 BMI Method:Stated General Appearance: No Apparent Distress, WD/WN Respiratory: No Accessory Muscle Use, No Respiratory Distress Gastrointestinal: Normal Bowel Sounds, Non Tender, Soft Extremity: Normal Capillary Refill, Normal Inspection Neurologic/Psychiatric: Alert, Oriented x3 Skin: Normal Color, Warm/Dry [place] End equal, radial pulses +2, NIH 0. No drift. Only sensory loss, no motor loss. Progress/Results/Core Measures Results/Orders Lab Results Laboratory Tests Test 06/29/20 19:05 Range/Units Urine Color YELLOW Urine Clarity CLEAR Urine pH 6.5 5-9 Urine Specific [place] <=1.005 1.016-1.022 Urine Protein NEGATIVE NEGATIVE Urine Glucose (UA) NEGATIVE NEGATIVE Urine Ketones NEGATIVE NEGATIVE Urine Nitrite NEGATIVE NEGATIVE Urine Bilirubin NEGATIVE NEGATIVE Urine Urobilinogen 0.2 < = 1.0 MG/DL Urine Leukocyte Esterase NEGATIVE NEGATIVE Urine RBC (Auto) 3+ H NEGATIVE Urine RBC RARE /HPF Urine WBC 0-2 /HPF Urine Squamous Epithelial Cells 5-10 /HPF Urine Crystals NONE /LPF Urine Bacteria NEGATIVE /HPF Urine Casts NONE /LPF Urine Mucus NEGATIVE /LPF Urine Culture Indicated NO My Orders Orders - BRAYAN GUEVARA APRN Ketorolac Injection (Toradol Injection) (06/29/20 18:45) Orphenadrine Inj (Ed Only) (Norflex Inje (06/29/20 18:45) Ua Culture If Indicated (06/29/20 19:06) Hydrocodone/Apap 5/325 Tablet (Lortab 5 (06/29/20 20:00) Urine Bedside (06/29/20 19:48) Medications Given in ED Current Medications Medications Dose Ordered Sig/Josue Route Start Time Stop Time Status Last Admin Dose Admin Acetaminophen/ Hydrocodone Bitart 1 ea ONCE ONCE PO 06/29/20 20:00 06/29/20 20:01 DC 06/29/20 19:52 1 EA Ketorolac Tromethamine 60 mg ONCE ONCE IM 06/29/20 18:45 06/29/20 18:46 DC 06/29/20 19:08 60 MG Orphenadrine Citrate 60 mg ONCE ONCE IM 06/29/20 18:45 06/29/20 18:46 DC 06/29/20 19:08 60 MG Vital Signs/I&O 06/29/20 18:42 Temp 35.4 Pulse 93 Resp 18 B/P (MAP) 139/91 (107) Pulse Ox 99 O2 Delivery Room Air Departure Communication (Admissions) 1948-the arm and leg pain and numbness are gone. However she still has a persistent pain in the middle of her back. It does not radiate through to the abdomen. It is midline and feels tight she states. Impression Primary Impression: Thoracic back pain Disposition: HOME, SELF-CARE Condition: Stable Departure-Patient Inst. Decision time for Depature: 20:12 Referrals: NO,LOCAL PHYSICIAN (PCP/Family) Primary Care Physician Patient Instructions: Upper Back Pain (DC) Add. Discharge Instructions: 1. Return to ER for any concerns 2. Follow-up with your doctor next week All discharge instructions reviewed with patient and/or family. Voiced understanding. Scripts Naproxen Sodium (Anaprox Ds) 550 Mg Tablet 550 MG PO BID PRN for PAIN-MODERATE (5-7), #10 TAB Prov: BRAYAN GUEVARA APRN 06/29/20 Cyclobenzaprine HCl (Cyclobenzaprine HCl) 10 Mg Tablet 10 MG PO TID, #15 TAB Prov: BRAYAN GUEVARA APRN 06/29/20 Work/School Note: Work Release Form Date Seen in the Emergency Department: June 29, 2020 Return to Work: July 01, 2020 Images Torso/Trunk 1 - Tenderness BRAYAN GUEVARA APRN June 29, 2020 18:46
[2020-06-29 19:14] LABS: BILIRUBIN,URINE NEGATIVE (NEGATIVE); CLARITY,URINE CLEAR; COLOR,URINE YELLOW; GLUCOSE, URINE (UA) NEGATIVE (NEGATIVE); KETONES,URINE NEGATIVE (NEGATIVE); LEUKOCYTE ESTERASE ,URINE NEGATIVE (NEGATIVE); NITRITE,URINE NEGATIVE (NEGATIVE); PH,URINE 6.5 (5-9); PROTEIN,URINE NEGATIVE (NEGATIVE)
[2020-06-29 19:21] LABS: BACTERIA,URINE NEGATIVE /HPF; RBC,URINE RARE /HPF; WBC,URINE 0-2 /HPF
[2020-06-29] MEDS ORDERED: HYDROcodone/APAP 5 MG/325 MG (LORTAB) TAB PO ONE (20:00)
[2020-06-29] MEDS ORDERED: CYCL10TA9 PO (20:13)
[2020-06-29] MEDS ORDERED: NAPR-1070 PO (20:13)
[2020-06-29 20:19] VITALS: BP 135/89
== END 2020-06-29 20:20 | disposition home or self-care (01) ==
LOC: EDUNIT# 18:30 → ER 18:31
DX: M54.6 Pain in thoracic spine (principal); Z87.442 Personal history of urinary calculi; X58.XXXA Exposure to other specified factors, initial encounter
CPT/HCPCS: 81000; 84703; 99284

== ENCOUNTER 2020-08-31 17:47 | Emergency (ER) | payer SELFPAY ==
[~2020-08-31] VITALS: Ht 162.5 cm; Wt 88.4 kg
[~2020-08-31 17:47] MED LIST changes: +CYCL10TA9 PO; +NAPR-1070 PO
--- NOTE | 2020-08-31 18:43 | ED Lower Extremity ---
General Stated Complaint: FALL/R KNEE INJ Source: patient History of Present Illness Date Seen by Provider: Aug 31, 2020 Time Seen by Provider: 18:30 Initial Comments PT ARRIVES VIA POV FROM HOME STATES EARLIER THIS AFTERNOON, SHE WAS GETTING OUT OF A TRUCK AND HER KNEE POPPED AND THEN IT LOCKED UP AND SHE FELL DOWN, LANDING ON THE LATERAL ASPECT OF HER RIGHT KNEE STATES SHE DOES HAVE SOME NUMBNESS/TINGLING FROM THE KNEE DOWN PT IS ABLE TO BEAR SOME WEIGHT ON RIGHT LEG NO OTHER INJURIES FROM THE INCIDENT NO PRIOR PROBLEMS WITH THIS KNEE HAS NOT TAKEN ANYTHING FOR PAIN PT ARRIVES WEARING AN ELASTIC KNEE BRACE HAS HAD CHRONIC PROBLEMS WITH LEFT KNEE, BUT HAS NEVER SEEN ORTHOPEDIC SURGEON FOR IT 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 NORMAL. NO CONTROL PCP: SEAN Allergies and Home Medications Allergies Coded Allergies: No Known Drug Allergies (Unverified , 06/28/17) Home Medications Cyclobenzaprine HCl 10 Mg Tablet, 10 MG PO TID Prescribed by: BRAYAN GUEVARA on 06/29/202012 Naproxen 500 Mg Tablet.dr, 500 MG PO BID Prescribed by: GABRIELE SANTANA on 08/31/201902 Naproxen Sodium 550 Mg Tablet, 550 MG PO BID PRN for PAIN-MODERATE (5-7) Prescribed by: BRAYAN GUEVARA on 06/29/202012 Patient Home Medication List Home Medication List Reviewed: Yes Review of Systems Constitutional: no symptoms reported : No LMP: Aug 11, 2020 Control/STD Prophylaxis: None Musculoskeletal: see HPI Skin: no symptoms reported Psychiatric/Neurological: See HPI Past Imiuwbg-Ggxizn-Nvlzxa Hx Seasonal Allergies Seasonal Allergies: No Past Medical History Surgery/Hospitalization HX: X 3 BIRTHMARK REMOVED "HOLE IN UPPER PART OF MY HEART REPAIRED" IN 2014 Surgeries: Yes Cardiac, Section Respiratory: No Cardiac: Yes ("HOLE IN UPPER PART OF MY HEART REPAIRED" IN 2014) Congenital Heart Disease Neurological: No Female Reproductive Disorders: Denies Genitourinary: Yes Kidney Stones Gastrointestinal: No Musculoskeletal: Yes (CHRONIC LEFT KNEE PROBLEMS--NEVER SEEN ORTHOPEDIC SURGEON) Endocrine: No HEENT: No Cancer: No Psychosocial: No Integumentary: No (BIRTHMARK REMOVED) Blood Disorders: No Physical Exam Vital Signs Vital Signs - First Documented 08/31/20 18:30 Pulse 71 Resp 20 B/P (MAP) 108/71 (83) Pulse Ox 100 O2 Delivery Room Air Capillary Refill : Height, Weight, BMI Height: 5'4.00" Weight: 195lbs. oz. 88.643195wb; 32.00 BMI Method:Stated General Appearance: WD/WN, no apparent distress Hips: right hip normal inspection Legs: right leg normal inspection Knees: right knee other (TENDERNESS TO LATERAL ASPECT OF RIGHT KNEE. NO SWELLING OR EXTERNAL EVIDENCE OF TRAUMA. LIMITED ROM DUE TO PAIN. LIMITED EXAM FOR LIGAMENT LAXITY DUE TO PAIN. PARTIAL WEIGHT BEARING) Ankles: right ankle normal inspection Feet: right foot normal inspection Neurologic/Tendon: normal sensation, normal motor functions, normal tendon functions Neurologic/Psychiatric: cath lab II-XII nml as tested, no motor/sensory deficits, alert, normal mood/affect, oriented x 3 Skin: normal color, warm/dry Procedures/Interventions Splinting and Joint Reduction : Donal wrap: Yes Immobilizers: 19 inch Knee Ordered: Crutches Progress/Results/Core Measures Results/Orders My Orders Orders - GABRIELE SANTANA DO Knee, Right, 3 Views (08/31/20 18:36) Donal Bandage (08/31/20 19:03) Crutches (08/31/20 19:03) Knee Immobilizer (08/31/20 19:03) Vital Signs/I&O 08/31/20 18:30 Pulse 71 Resp 20 B/P (MAP) 108/71 (83) Pulse Ox 100 O2 Delivery Room Air Diagnostic Imaging Comments XRAYS RIGHT KNEE--NO ACUTE PROCESS, PER RADIOLOGIST REPORT AT 1900 Reviewed: Reviewed by Me Departure Impression Primary Impression: RIGHT KNEE SPRAIN / CONTUSION Disposition: 01 HOME, SELF-CARE Condition: Stable Departure-Patient Inst. Decision time for Depature: 19:00 Referrals: [facility] Patient Instructions: Contusion (DC), Going Up and Down Curbs or Stairs With a Walker or Crutches, How to Use Crutches, How to Use an Elastic Bandage, Knee Immobilizer (DC), Knee Sprain (DC) Add. Discharge Instructions: ICE TO AREA AT 20 MINUTE INTERVALS DONAL WRAP, KNEE IMMOBILIZER AND CRUTCHES AT ALL TIMES ELEVATE LEG MUCH POSSIBLE FOLLOW UP WITH [facility] IN 1 WEEK FOR FURTHER CARE Scripts Naproxen (Naproxen) 500 Mg Tablet. 500 MG PO BID, #20 TAB Prov: GABRIELE SANTANA DO 08/31/20 GABRIELE SANTANA DO Aug 31, 2020 18:43
--- NOTE | 2020-08-31 18:59 | Diagnostic Imaging Report ---
EXAMINATION: Right knee radiographs, 3 views. COMPARISON: None. HISTORY: 30-year-old female, right knee pain. FINDINGS: There is no identified acute fracture. There is no knee joint effusion. There is no identified radiopaque foreign body. The joint spaces are well-preserved. IMPRESSION: Unremarkable radiographs of the right knee. Dictated by: Dictated on workstation # [id number]
[2020-08-31] MEDS ORDERED: NAPR500T8 PO (19:03)
[2020-08-31 19:23] VITALS: BP 125/73
== END 2020-08-31 19:26 | disposition home or self-care (01) ==
LOC: EDUNIT# 17:47 → ER 17:48
DX: S83.91XA Sprain of unspecified site of right knee, initial encounter (principal); V48.4XXA Person boarding or alighting a car injured in noncollision transport accident, initial encounter
CPT/HCPCS: 73562

== ENCOUNTER → 2020-12-28 | Outpatient (REF) ==
[~2020-12-28] MED LIST changes: +CYCL10TA25 PO; -CYCL10TA9 PO; +NAPR500T8 PO
--- NOTE | 2020-12-28 16:33 | Diagnostic Imaging Report ---
INDICATION: Contusion, pain. COMPARISON: 06/06/2018. TECHNIQUE: Three radiographs of the right-sided ribs dated 12/28/2020. FINDINGS: Septal closure device is again identified overlying the cardiac silhouette. No displaced or healing rib fracture. No significant pleural effusion or pneumothorax. No suspicious radiopaque foreign body. IMPRESSION: No acute displaced or healing rib fracture. Dictated by: Dictated on workstation # [id number]
== END ==
LOC: OCC 15:38
PROVIDERS: ATTEND Family Medicine
DX: R07.81 Pleurodynia (principal)
CPT/HCPCS: 71100

== ENCOUNTER 2021-03-06 12:36 | Emergency (ER) | payer MEDICAID ==
[~2021-03-06] VITALS: Ht 162.5 cm; Wt 81.8 kg
--- NOTE | 2021-03-06 13:24 | ED General ---
General Stated Complaint: MIGRAINE Source of Information: Patient Exam Limitations: No Limitations History of Present Illness Date Seen by Provider: Mar 06, 2021 Time Seen by Provider: 13:22 Initial Comments To ER with a bitemporal headache that began last night alleviated by dark quiet room. She has a history of migraines frequently but this 1 is worse than usual. No head injury, no fever no chills. No neck pain. Timing/Duration: 1-2 Days Severity: Moderate Associated Systoms: Headaches Allergies and Home Medications Allergies Coded Allergies: No Known Drug Allergies (Unverified , 06/28/17) Patient Home Medication List Home Medication List Reviewed: Yes Cyclobenzaprine HCl (Cyclobenzaprine HCl) 10 Mg Tablet, 10 MG PO TID Prescribed by: BRAYAN GUEVARA on 06/29/202012 Naproxen (Naproxen) 500 Mg Tablet.dr, 500 MG PO BID Prescribed by: GABRIELE SANTANA on 08/31/201902 Naproxen Sodium (Anaprox Ds) 550 Mg Tablet, 550 MG PO BID PRN for PAIN-MODERATE (5-7) Prescribed by: BRAYAN GUEVARA on 06/29/202012 Review of Systems Review of Systems Constitutional: see HPI EENTM: see HPI Respiratory: no symptoms reported Cardiovascular: no symptoms reported Genitourinary: no symptoms reported Musculoskeletal: no symptoms reported Skin: no symptoms reported Psychiatric/Neurological: No Symptoms Reported Hematologic/Lymphatic: No Symptoms Reported Past Twzqgjj-Mnesyl-Puoqqu Hx Seasonal Allergies Seasonal Allergies: No Past Medical History Surgery/Hospitalization HX: X 3 BIRTHMARK REMOVED "HOLE IN UPPER PART OF MY HEART REPAIRED" IN 2013 Surgeries: Yes Cardiac, Section Respiratory: No Cardiac: Yes ("HOLE IN UPPER PART OF MY HEART REPAIRED" IN 2013) Congenital Heart Disease Neurological: No Female Reproductive Disorders: Denies Genitourinary: Yes Kidney Stones Gastrointestinal: No Musculoskeletal: Yes (CHRONIC LEFT KNEE PROBLEMS--NEVER SEEN ORTHOPEDIC SURGEON) Endocrine: No HEENT: No Cancer: No Psychosocial: No Integumentary: No (BIRTHMARK REMOVED) Blood Disorders: No Physical Exam Vital Signs Capillary Refill : Height, Weight, BMI Height: 5'4.00" Weight: 195lbs. oz. 88.772058tr; 33.00 BMI Method:Stated General Appearance: No Apparent Distress, WD/WN, Other (Alert and oriented GCS 15) Eyes: Bilateral Eye Normal Inspection, Bilateral Eye PERRL HEENT: PERRL/EOMI, TMs Normal Neck: Full Range of Motion, Normal Inspection Respiratory: No Accessory Muscle Use, No Respiratory Distress Cardiovascular: Regular Rate, Rhythm, Normal Peripheral Pulses Gastrointestinal: Normal Bowel Sounds, Non Tender, Soft Extremity: Normal Capillary Refill, Normal Inspection Neurologic/Psychiatric: Alert, Oriented x3 Skin: Normal Color, Warm/Dry Progress/Results/Core Measures Suspected Sepsis SIRS Temperature: Pulse: Respiratory Rate: Blood Pressure / Mean: Results/Orders My Orders Orders - BRAYAN GUEVARA APRN Ketorolac Injection (Toradol Injection) (03/06/21 13:30) Prochlorperazine Injection (Compazine In (03/06/21 13:30) Diphenhydramine Injection (Benadryl Inje (03/06/21 13:30) Vital Signs/I&O Capillary Refill : Departure Impression Primary Impression: Headache Disposition: 01 HOME, SELF-CARE Condition: Stable Departure-Patient Inst. Decision time for Depature: 13:23 Referrals: NO,LOCAL PHYSICIAN (PCP/Family) Primary Care Physician Patient Instructions: Headache, Adult ED Add. Discharge Instructions: 1. Return to ER for any concerns 2. Follow-up with your doctor next week Work/School Note: Work Release Form Date Seen in the Emergency Department: Mar 06, 2021 Return to Work: Mar 07, 2021 BRAYAN GUEVARA APRN Mar 06, 2021 13:24
[2021-03-06] MEDS ORDERED: diphenhydrAMINE 50 MG/ML INJ (BENADRYL) IM ONE (13:30)
[2021-03-06] MEDS ORDERED: KETOROLAC 60 MG/2 ML VIAL IM ONE (13:30)
[2021-03-06] MEDS ORDERED: PROCHLORPERAZINE 10 MG/2ML INJ (COMPAZINE) IM ONE (13:30)
[2021-03-06 14:32] VITALS: BP 116/83
== END 2021-03-06 14:48 | disposition home or self-care (01) ==
LOC: EDUNIT# 12:36 → ER 12:38
DX: R51.9 Headache, unspecified (principal)
CPT/HCPCS: 99284